=== PATIENT | female | born 1945 | race Caucasian/White ===

== ENCOUNTER 2018-04-18 11:17 | Inpatient (IN) | payer MEDICARE, OTHER ==
[~2018-04-18] VITALS: Ht 165.1 cm; Wt 67.4 kg
--- NOTE | 2018-04-18 12:01 | NUR ---
BIB [facility] FOR BILATERAL LOWER EXTREMITY EDEMA AND REDNESS. NAD WILL CONT TO MONITOR.PT REFUSED TO LAY IN THE BED.
[2018-04-18 12:20] LABS: BASOPHILS % (AUTO) 0.4 % (0.0-2.0); EOSINOPHILS % (AUTO) 7.8 % (0.0-6.0); HEMATOCRIT 35 % (33-45); HEMOGLOBIN 11.5 g/dL (11.5-14.8); LYMPHOCYTES # (AUTO) 1.1 /CMM (0.8-4.8); LYMPHOCYTES % (AUTO) 14.7 % (20.0-44.0); MEAN CORPUSCULAR HGB CONC 33 g/dl (31.0-36.0); MEAN CORPUSCULAR VOLUME 83 fL (82-100); MONOCYTES # (AUTO) 0.5 /CMM (0.1-1.30); MONOCYTES % (AUTO) 7.4 % (2.0-12.0); NEUTROPHILS # (AUTO) 5.1 /CMM (1.8-8.9); NEUTROPHILS % (AUTO) 69.7 % (43.0-81.0); RDW COEFFICIENT OF VARIATION 17.2 (11.5-15.0); RED BLOOD CELL COUNT(AUTO) 4.15 MIL/uL (4.0-5.2); WHITE BLOOD COUNT (AUTO) 7.3 K/uL (4.3-11.0)
[2018-04-18 12:22] LABS: PLATELET COUNT (AUTO) 258 /CMM (150-450)
--- NOTE | 2018-04-18 12:26 | NUR ---
US AT BS.
[2018-04-18 12:28] LABS: CALCIUM, SERUM 8.7 mg/dL (8.5-10.1); CARBON DIOXIDE 25 mmol/L (21-32); CHLORIDE 104 mmol/L (98-107); CREATININE 0.6 mg/dL (0.6-1.3); GLUCOSE 105 mg/dL (74-106); POTASSIUM 4.1 mmol/L (3.5-5.1); SODIUM SERUM 136 mmol/L (136-145); UREA NITROGEN, BLOOD 26 mg/dL (7-18)
[2018-04-18 12:41] LABS: B-TYPE NATRIURETIC PEPTIDE 47 PG/ML (0-125)
[2018-04-18] MEDS ORDERED: CEFTRIAXONE 1 G in IV D5W 50 ML IV ONE (13:30)
[2018-04-18] MEDS ORDERED: LORA-259 PO (13:40)
[2018-04-18] MEDS ORDERED: ZOLP5TAB2 PO (13:40)
[2018-04-18] MEDS ORDERED: LEVA1.257 IH (13:40)
[2018-04-18] MEDS ORDERED: LEVO100T9 PO (13:40)
[2018-04-18] MEDS ORDERED: HYDR-552 PO (13:40)
[2018-04-18] MEDS ORDERED: LISI10TA5 PO (13:40)
[2018-04-18] MEDS ORDERED: ASCO500T9 PO (13:40)
[2018-04-18] MEDS ORDERED: GABA-536 PO (13:40)
[2018-04-18] MEDS ORDERED: IPRA0.2S49 IH (13:40)
[2018-04-18] MEDS ORDERED: D AM PO (13:40)
[2018-04-18] MEDS ORDERED: LOPE2CAP PO (13:40)
[2018-04-18] MEDS ORDERED: DOCU250C14 PO (13:40)
[2018-04-18] MEDS ORDERED: ACET-868 PO (13:40)
[2018-04-18] MEDS ORDERED: HYDR-548 PO (13:40)
[2018-04-18] MEDS ORDERED: CHOL200026 PO (13:40)
[2018-04-18] MEDS ORDERED: TOPI100T38 PO (13:40)
[2018-04-18] MEDS ORDERED: RISP2TAB5 PO (13:40)
[2018-04-18] MEDS ORDERED: SERT50TA PO (13:40)
[2018-04-18] MEDS ORDERED: MULT-213 PO (13:40)
[2018-04-18] MEDS ORDERED: LEVOFLOXACIN 500 MG /D5W 100ML 500 MG/100 ML PIGGYBACK IV ONE (14:00)
[2018-04-18] MEDS ORDERED: ONDANSETRON HCL/PF 4 MG/2 ML VIAL IVP PRN (14:30)
[2018-04-18] MEDS ORDERED: IPRATROPIUM NEB FS 0.5 MG/2.5 ML AMPUL.NEB IH PRN (14:30)
[2018-04-18] MEDS ORDERED: MAG HYDROX/AL HYDROX/SIMETH 30 ML UDC PO PRN (14:30)
[2018-04-18] MEDS ORDERED: HYDROCODONE/APAP 5/325MG 1 EACH TABLET PO PRN (14:30)
[2018-04-18] MEDS ORDERED: LEVALBUTEROL HCL NEB 1.25 MG/0.5 ML VIAL.NEB IH PRN (14:30)
[2018-04-18] MEDS ORDERED: ACETAMINOPHEN 325 MG TABLET PO PRN (14:30)
[2018-04-18] MEDS ORDERED: Z GUARD REMEDY 2 OZ OINT TP PRN (14:30)
[2018-04-18] MEDS ORDERED: MAGNESIUM HYDROXIDE 30 ML UDC PO PRN (14:30)
[2018-04-18] MEDS ORDERED: LEVOFLOXACIN 500 MG /D5W 100ML 100 ML IV ONE (14:39)
--- NOTE | 2018-04-18 14:50 | NUR ---
REPORT GIVEN TO BARBARA BARRAZA
--- NOTE | 2018-04-18 14:59 | NUR ---
PT TRANSFERRED TO THE FLOOR
[2018-04-18 15:10] VITALS: BP 108/60
--- NOTE | 2018-04-18 15:10 | NUR ---
RN NOTES PATIENT KEPT ASKING FOR A SMOKE. PER PATIENT, KATARZYNA BERGER NP SAID SHE CAN SMOKE. CONSENT FOR SMOKE POLICY SIGNED. WENT DOWN FOR A SMOKE WITH SONY PEREZ.
--- NOTE | 2018-04-18 15:10 | NUR ---
RN INITIAL NOTES RECEIVED PATIENT FROM ER VIA PATIENT'S WHEELCHAIR. PATIENT IS A/OX3, ABLE TO MAKE NEEDS KNOWN. DIAGNOSIS OF BLE CELLULITIS. NO ACUTE DISTRESS, NO SOB NOTED. ON ROOM AIR, TOLERATED WELL. IV SITE INTACT AND PATENT. REFUSED TO DO SKIN ASSESSMENT AT THE MOMENT, SHE SAID "LATER". PATIENT REFUSED TO LAY ON THE BED, PER PATIENT SHE'S ON THE WHEELCHAIR MOST OF THE DAY AND ONLY TRANSFER TO BED DURING AT NIGHT. WILL NOTIFY KATARZYNA BERGER NP FOR ADMITTING ORDERS. WILL CONTINUE TO MONITOR ACCORDINGLY.
[2018-04-18] MEDS ORDERED: FEE PK DOSING 1 MIN EA MC ONE (15:15)
[2018-04-18] MEDS ORDERED: ALBUTEROL FS 2.5 MG/0.5 ML VIAL.NEB NEB PRN (15:30)
[2018-04-18 16:00] VITALS: BP 104/65
[2018-04-18] MEDS: GABAPENTIN 400 MG CAPSULE PO SCH ×2 (16:14→20:25)
[2018-04-18] MEDS: TOPIRAMATE 100 MG TABLET PO SCH (16:14)
[2018-04-18] MEDS: HYDROCODONE/APAP 10/325MG 1 EA TABLET PO PRN ×2 (16:15→20:25)
[2018-04-18] MEDS: ENOXAPARIN SODIUM 40 MG/0.4 ML DISP.SYRIN SQ SCH (16:46)
[2018-04-18] MEDS ORDERED: FUROSEMIDE 40 MG/4 ML VIAL IV ONE (17:00)
[2018-04-18] MEDS: VANCOMYCIN 0.75 GM in IV D5W 250 ML IV SCH (17:03)
--- NOTE | 2018-04-18 19:30 | NUR ---
RN CLOSING NOTES PATIENT IN STABLE CONDITION. ALL NEEDS ATTENDED AND PROVIDED. KEPT PATIENT SAFE. PATIENT REFUSED TO LAY ON BED. PATIENT NOTED SITTING ON WHEELCHAIR UPON CHANGE OF SHIFT. ENDORSED TO NIGHT RN FOR SHANIKA.
--- NOTE | 2018-04-18 19:30 | NUR ---
RN NOTES RECEIVED PATIENT UP IN WHEELCHAIR. AO X 3, ABLE TO MAKE NEEDS KNOWN. NO ACUTE DISTRESS NOTED. MONITORED FOR PAIN. IV SITE PATENT, INTACT; FLUSHED. SAFETY REMINDERS GIVEN. CALL SOSA WITHIN EASY REACH. WILL CONTINUE TO MONITOR.
[2018-04-18 20:00] VITALS: BP 108/54
[2018-04-18] MEDS: risperiDONE 1 MG TABLET PO SCH (20:24)
[2018-04-18] MEDS: ZOLPIDEM TARTRATE 5 MG TABLET PO PRN (22:11)
[2018-04-19] MEDS: HYDROCODONE/APAP 10/325MG 1 EA TABLET PO PRN ×5 (01:00→23:49)
[2018-04-19] MEDS: LORAZEPAM 1 MG TABLET PO PRN ×3 (01:00→18:54)
[2018-04-19] MEDS: VANCOMYCIN 0.75 GM in IV D5W 250 ML IV SCH ×2 (04:42→17:03)
[2018-04-19 06:37] LABS: BASOPHILS % (AUTO) 0.6 % (0.0-2.0); EOSINOPHILS % (AUTO) 9.4 % (0.0-6.0); HEMATOCRIT 36 % (33-45); LYMPHOCYTES # (AUTO) 1.7 /CMM (0.8-4.8); LYMPHOCYTES % (AUTO) 22.1 % (20.0-44.0); MEAN CORPUSCULAR HGB CONC 33 g/dl (31.0-36.0); MEAN CORPUSCULAR VOLUME 83 fL (82-100); MONOCYTES # (AUTO) 0.7 /CMM (0.1-1.30); MONOCYTES % (AUTO) 8.6 % (2.0-12.0); NEUTROPHILS # (AUTO) 4.6 /CMM (1.8-8.9); NEUTROPHILS % (AUTO) 59.3 % (43.0-81.0); PLATELET COUNT (AUTO) 258 /CMM (150-450); RDW COEFFICIENT OF VARIATION 17.2 (11.5-15.0); RED BLOOD CELL COUNT(AUTO) 4.35 MIL/uL (4.0-5.2); WHITE BLOOD COUNT (AUTO) 7.7 K/uL (4.3-11.0)
--- NOTE | 2018-04-19 06:49 | NUR ---
RN NOTES PATIENT ASLEEP, EASILY AROUSABLE. RESPIRATIONS EVEN. NO SIGNS OF PAIN NOTED. DUE MEDS GIVEN WITH NO ASE NOTED. NEEDS ATTENDED. KEPT CLEAN, DRY, AND COMFORTABLE. SAFETY PRECAUTIONS AND COMFORT MEASURES IN PLACE. WILL GIVE REPORT TO DAY SHIFT FOR CONTINUITY OF CARE.
[2018-04-19 06:59] LABS: ALANINE AMINOTRANSFERASE 27 U/L (12-78); ALBUMIN 3.3 g/dL (3.4-5.0); ALKALINE PHOSPHATASE 90 U/L (46-116); ASPARTATE AMINOTRANSFERASE 14 U/L (15-37); BILIRUBIN,TOTAL 0.3 mg/dL (0.2-1.0); CALCIUM, SERUM 9.1 mg/dL (8.5-10.1); CARBON DIOXIDE 27 mmol/L (21-32); CHLORIDE 104 mmol/L (98-107); CREATININE 0.7 mg/dL (0.6-1.3); GLUCOSE 92 mg/dL (74-106); MAGNESIUM 2.2 mg/dL (1.8-2.4); PHOSPHORUS 4.1 mg/dL (2.5-4.9); POTASSIUM 3.7 mmol/L (3.5-5.1); SODIUM SERUM 140 mmol/L (136-145); TOTAL PROTEIN, SERUM 7.9 g/dL (6.4-8.2); UREA NITROGEN, BLOOD 25 mg/dL (7-18)
[2018-04-19 07:13] LABS: CHOLESTEROL 150 mg/dL (<200); HDL CHOLESTEROL 32 mg/dL (40-60); LDL 100 mg/dL (0-99); THYROID STIMULATING HORMONE 42.867 uIU/mL (0.358-3.74); TRIGLYCERIDES 160 mg/dL (30-150)
--- NOTE | 2018-04-19 07:40 | NUR ---
RN OPENING NOTES RECEIVED PT. PT IS STABLE AND RESTING BEDSIDE IN WHEELCHAIR. A/OX3. NO S/S OF RESP DISTRESS OR SOB. PT C/O PAIN 04/30 ORIGINATING FROM LUE. WILL ADDRESS PHARMACOLOGICALLY. IV ACCESS LOCATED ON RAC 22G, CURRENTLY SL. SAFETY MEASURES IN PLACE, CALL LIGHT WITHIN REACH. WILL CONTINUE TO MONITOR.
[2018-04-19 08:00] VITALS: BP 110/49
[2018-04-19] MEDS: LEVOTHYROXINE SODIUM 100 MCG TABLET PO SCH (08:47)
[2018-04-19] MEDS: GABAPENTIN 400 MG CAPSULE PO SCH ×4 (08:47→21:14)
[2018-04-19] MEDS: DOCUSATE SODIUM 250 MG CAPSULE PO SCH (08:49)
[2018-04-19] MEDS: CHOLECALCIFEROL 1,000 UNIT TABLET (VIT D3) PO SCH (08:49)
[2018-04-19] MEDS: MULTIVIT, IRON, MIN NO. 8, FA 1 TAB PO SCH (08:49)
[2018-04-19] MEDS: SERTRALINE HCL 50 MG TABLET PO SCH (08:49)
[2018-04-19] MEDS: TOPIRAMATE 100 MG TABLET PO SCH ×2 (08:49→17:02)
[2018-04-19] MEDS: risperiDONE 1 MG TABLET PO SCH ×2 (08:50→21:15)
[2018-04-19] MEDS: ASCORBIC ACID 500 MG TABLET PO SCH (08:50)
[2018-04-19] MEDS: FUROSEMIDE 40 MG/4 ML VIAL IV SCH ×2 (08:50→17:03)
[2018-04-19] MEDS: LISINOPRIL (10MG) 10 MG TABLET PO SCH (08:50)
--- NOTE | 2018-04-19 09:36 | NUR ---
WOUND CARE CONSULT: PT OFF UNIT AT THIS TIME.
[2018-04-19 10:00] VITALS: BP 110/49
--- NOTE | 2018-04-19 10:57 | NUR ---
WOUND CARE: 2ND ATTEMPT TO SEE PT BUT PT HAVING PROCEDURE AT THIS TIME.
--- NOTE | 2018-04-19 12:10 | NUR ---
WOUND CARE CONSULT: PT PRESENTS WITH RASH TO PERINEUM AND LOWER BUTTOCKS, WELL REDNESS WITH WEEPING EDEMA TO LOWER LEGS WITH REDNESS, PRESENT ON ADMISSION. ALL SKIN PROTECTION RECOMMENDATIONS DISCUSSED WITH NURSING STAFF. WILL SEE PRN. BEAVERS IN AGREEMENT WITH PLAN OF CARE. Addendum: 04/19/18 at 1211 by NAPOLEON BEAN WNDNU Amended: Links added.
[2018-04-19] MEDS: CLOTRIMAZOLE/BETAMETASONE DIPROPIONATE 15 GM TUBE TP SCH ×2 (12:30→17:02)
[2018-04-19 16:00] VITALS: BP 101/60
--- NOTE | 2018-04-19 18:52 | NUR ---
RN CLOSING NOTES PT IS STABLE AND RESTING AT BEDSIDE IN WHEELCHAIR. A/OX3. NO S/S OF RESP DISTRESS OR SOB. PT WITH CONTINUED PAIN MANAGEMENT. IV ACCESS PATENT AND INTACT NO REDNESS OR INFILTRATION NOTED, CURRENTLY SL. SAFETY MEASURES IN PLACE, CALL LIGHT WITHIN REACH. WILL CONTINUE TO MONITOR AND ENDORSE TO NEXT SHIFT FOR CONTINUITY OF CARE
[2018-04-19 20:00] VITALS: BP 119/67
[2018-04-19] MEDS: ENOXAPARIN SODIUM 40 MG/0.4 ML DISP.SYRIN SQ SCH (21:16)
--- NOTE | 2018-04-19 22:52 | NUR ---
PATIENT REFUSED TO GO TO BED. PER PATIENT, SHE IS MORE COMFORTABLE IN WHEELCHAIR; SHE USUALLY RESTS IN WHEELCHAIR WHEN IN SNF. WILL CONTINUE TO MONITOR.
[2018-04-20] MEDS: ZOLPIDEM TARTRATE 5 MG TABLET PO PRN (01:58)
[2018-04-20 04:33] LABS: CALCIUM, SERUM 8.9 mg/dL (8.5-10.1); CARBON DIOXIDE 28 mmol/L (21-32); CHLORIDE 105 mmol/L (98-107); CREATININE 0.7 mg/dL (0.6-1.3); GLUCOSE 95 mg/dL (74-106); POTASSIUM 3.5 mmol/L (3.5-5.1); SODIUM SERUM 139 mmol/L (136-145); UREA NITROGEN, BLOOD 26 mg/dL (7-18)
--- NOTE | 2018-04-20 05:24 | NUR ---
HALLWAY TO PATIENT'S ROOM IS BEING WAXED; EVS INSTRUCTED STAFF TO KEEP AWAY FROM AREA.
[2018-04-20] MEDS: LORAZEPAM 1 MG TABLET PO PRN ×3 (05:55→23:13)
[2018-04-20] MEDS: VANCOMYCIN 0.75 GM in IV D5W 250 ML IV SCH ×2 (05:55→16:18)
[2018-04-20] MEDS: HYDROCODONE/APAP 10/325MG 1 EA TABLET PO PRN ×3 (05:56→20:52)
--- NOTE | 2018-04-20 06:13 | NUR ---
PATIENT AWAKE; TRANSFERRED TO WHEELCHAIR REQUESTED BY PATIENT. RESPIRATIONS EVEN. NO SIGNS OF PAIN NOTED. DUE MEDS GIVEN WITH NO ASE NOTED. NEEDS ATTENDED. KEPT CLEAN, DRY, AND COMFORTABLE. SAFETY PRECAUTIONS AND COMFORT MEASURES IN PLACE. WILL GIVE REPORT TO DAY SHIFT FOR CONTINUITY OF CARE.
--- NOTE | 2018-04-20 07:36 | NUR ---
MS RN OPENING NOTE PATIENT IS RESTING COMFORTABLY IN WHEELCHAIR REQUESTED. ALERT AND ORIENTED X4. NO FACIAL GRIMACING NOTED FOR PAIN. NO SOB OR DISTRESS NOTED. CALL LIGHT WITHIN REACH. SAFETY MEASURES IMPLEMENTED. ABLE TO COMMUNICATE NEEDS. IV INTACT AND PATENT NO REDNESS OR SWELLING NOTED, NO FLUIDS AT THIS TIME. WILL CONTINUE TO MONITOR THROUGHOUT SHIFT.
[2018-04-20 08:00] VITALS: BP 102/65
[2018-04-20] MEDS: LEVOTHYROXINE SODIUM 100 MCG TABLET PO SCH (08:21)
[2018-04-20] MEDS: MULTIVIT, IRON, MIN NO. 8, FA 1 TAB PO SCH (08:21)
[2018-04-20] MEDS: DOCUSATE SODIUM 250 MG CAPSULE PO SCH (08:21)
[2018-04-20] MEDS: SERTRALINE HCL 50 MG TABLET PO SCH (08:21)
[2018-04-20] MEDS: GABAPENTIN 400 MG CAPSULE PO SCH ×4 (08:21→20:45)
[2018-04-20] MEDS: TOPIRAMATE 100 MG TABLET PO SCH ×2 (08:22→16:17)
[2018-04-20] MEDS: risperiDONE 1 MG TABLET PO SCH ×2 (08:22→20:45)
[2018-04-20] MEDS: LISINOPRIL (10MG) 10 MG TABLET PO SCH (08:22)
[2018-04-20] MEDS: ASCORBIC ACID 500 MG TABLET PO SCH (08:22)
[2018-04-20] MEDS: FUROSEMIDE 40 MG/4 ML VIAL IV SCH ×2 (08:22→16:13)
[2018-04-20] MEDS: CHOLECALCIFEROL 1,000 UNIT TABLET (VIT D3) PO SCH (08:22)
[2018-04-20] MEDS: CLOTRIMAZOLE/BETAMETASONE DIPROPIONATE 15 GM TUBE TP SCH ×2 (08:23→16:18)
[2018-04-20] MEDS ORDERED: VITAMINS A AND D 56.7 GM TUBE TP PRN (09:00)
--- NOTE | 2018-04-20 11:46 | NUR ---
MS RN NOTE PATIENT REQUESTED PAIN MEDICATION FOR PAIN 10/10 ON BILATERAL LOWER EXTREMITIES. NORCO 10/325 PO GIVEN. WILL REASSESS PAIN
--- NOTE | 2018-04-20 14:00 | NUR ---
MS RN NOTE PATIENT STATED SHE IS VERY ANXIOUS ABOUT NOT SMOKING, SHE SAID " THIS ISN'T FAIR, I JUST WANT TO SMOKE". PATIENT SEEN CRYING AND MOANING. ATIVAN 1MG PO GIVEN. WILL CONTINUE TO MONITOR PATIENT
--- NOTE | 2018-04-20 15:00 | NUR ---
MS RN NOTE ATIVAN 1 MG EFFECTIVE. PATIENT RESTING AT THIS TIME. NO ANXIOUSNESS NOTED, WILL CONTINUE TO MONITOR THROUGHOUT SHIFT
[2018-04-20 16:00] VITALS: BP 109/69
--- NOTE | 2018-04-20 16:36 | NUR ---
MS RN NOTE LASIX HELD DUE TO LOW BP TAKEN MULTIPLE TIMES. ALL TIMES SBP BELOW <110
--- NOTE | 2018-04-20 18:36 | NUR ---
MS RN CLOSING NOTE PATIENT IS RESTING IN WHEELCHAIR AT THIS TIME WITH BRAKES ON. NO PAIN AT THIS TIME. NO SOB OR DISTRESS NOTED. CALL LIGHT WITHIN REACH AT ALL TIMES. SAFETY MEASURES IMPLEMENTED. ABLE TO COMMUNICATE NEEDS. IV INTACT AND PATENT NO REDNESS OR SWELLING NOTED. ALL DUE MEDICATIONS GIVEN ORDERED. ALL NURSING CARE NEEDS ATTENDED TO. WOUND TREATMENT DONE THROUGHOUT SHIFT. WILL ENDORSE TO PARAFFIN MACHINE OPERATOR FOR SHANIKA
--- NOTE | 2018-04-20 20:17 | NUR ---
MS RN INITIAL NOTE PT IS RESTING COMFORTABLY IN THE WHEELCHAIR, PT DOES NOT TO WANT TO BE IN THE BED. A/O X4 ABLE TO MAKE NEEDS KNOW, PT IS REQUESTING A SMOKE BREAK. REMINDED PT THAT SHE'S ALLOWED ONE SMOKE BREAK PER SHIFT. NO SIGNS OF SOB OR DISTRESS, BREATHING EVENLY AND UNLABORED ON RA. IV ACCESS IS INTACT AND PATENT. WHEELCHAIR IS IN LOCKED POSITION. WILL CONTINUE TO MONITOR PT
[2018-04-20] MEDS: ENOXAPARIN SODIUM 40 MG/0.4 ML DISP.SYRIN SQ SCH (20:51)
[2018-04-20 21:45] VITALS: BP 115/68
[2018-04-21] MEDS: HYDROCODONE/APAP 10/325MG 1 EA TABLET PO PRN ×3 (02:23→13:44)
[2018-04-21] MEDS: VANCOMYCIN 0.75 GM in IV D5W 250 ML IV SCH ×2 (04:21→16:20)
--- NOTE | 2018-04-21 06:21 | NUR ---
MS RN CLOSING NOTE PT IS RESTING IN WHEELCHAIR IN LOCKED POSITION AT BEDSIDE. NO SIGNS OF SOB OR DISTRESS, BREATHING EVENLY AND UNLABORED ON RA. IV ACCESS IS INTACT AND PATENT. WOUND CARE RENDERED. NO ACUTE CHANGES THROUGHOUT THE SHIFT. ALL NEEDS WERE ANTICIPATED AND MET. BED IS IN LOW AND LOCKED POSITION, CALL LIGHT WITHIN REACH. WILL ENDORSE TO DAYSHIFT
[2018-04-21 07:14] LABS: CALCIUM, SERUM 9.1 mg/dL (8.5-10.1); CARBON DIOXIDE 26 mmol/L (21-32); CHLORIDE 105 mmol/L (98-107); CREATININE 0.7 mg/dL (0.6-1.3); GLUCOSE 98 mg/dL (74-106); POTASSIUM 4.1 mmol/L (3.5-5.1); SODIUM SERUM 140 mmol/L (136-145); UREA NITROGEN, BLOOD 24 mg/dL (7-18)
[2018-04-21 08:00] VITALS: BP 116/66
[2018-04-21] MEDS: MULTIVIT, IRON, MIN NO. 8, FA 1 TAB PO SCH (08:55)
[2018-04-21] MEDS: FUROSEMIDE 40 MG/4 ML VIAL IV SCH ×2 (08:55→16:19)
[2018-04-21] MEDS: GABAPENTIN 400 MG CAPSULE PO SCH ×3 (08:55→16:19)
[2018-04-21] MEDS: risperiDONE 1 MG TABLET PO SCH (08:55)
[2018-04-21] MEDS: ASCORBIC ACID 500 MG TABLET PO SCH (08:55)
[2018-04-21] MEDS: SERTRALINE HCL 50 MG TABLET PO SCH (08:55)
[2018-04-21] MEDS: TOPIRAMATE 100 MG TABLET PO SCH ×2 (08:55→16:19)
[2018-04-21] MEDS: DOCUSATE SODIUM 250 MG CAPSULE PO SCH (08:55)
[2018-04-21] MEDS: CHOLECALCIFEROL 1,000 UNIT TABLET (VIT D3) PO SCH (08:55)
[2018-04-21] MEDS: LEVOTHYROXINE SODIUM 100 MCG TABLET PO SCH (08:56)
[2018-04-21] MEDS: LISINOPRIL (10MG) 10 MG TABLET PO SCH (08:59)
[2018-04-21] MEDS: CLOTRIMAZOLE/BETAMETASONE DIPROPIONATE 15 GM TUBE TP SCH ×2 (08:59→16:20)
[2018-04-21] MEDS ORDERED: VANC1PLA10 IV (10:20)
[2018-04-21] MEDS ORDERED: FURO-145 PO (10:20)
[2018-04-21] MEDS ORDERED: RXVAN XX (10:20)
[2018-04-21] MEDS ORDERED: VITA56.7 TP (10:25)
[2018-04-21] MEDS ORDERED: CLOT15CR5 TP (10:25)
[2018-04-21] MEDS ORDERED: NICOTINE PATCH (21MG) 21 MG PATCH.TD24 TD SCH (10:30)
--- NOTE | 2018-04-21 11:15 | NUR ---
RN NOTES PATIENTS SKIN ASSESSMENT DONE, PHOTOS TAKEN AND PLACED IN CHART, EXCEPT FOR LULU-AREA PHOTO, PATIENT IS REFUSING TO GO BACK TO BED AND TO HAVE PHOTO TAKEN OF HER LULU-AREA WHERE REDNESS ARE MORE VISIBLE. ONLY PART OF SACRAL WERE TAKEN. EXPLAINED RISKS AND BENEFITS, STILL REFUSED. PER PATIENT, "I CANNOT GO TO BED"
--- NOTE | 2018-04-21 13:00 | NUR ---
RN NOTES CALLED [facility] TWICE, WAS PLACED ON HOLD TWICE FOR 30 MINUTES EACH TIME. AND ANOTHER ATTEMPT TWICE, WITH NO ANSWER AT ALL, JUST AN AUTOMATED VOICE. CALVIN CAREER AND GUIDANCE COUNSELOR MADE AWARE.
[2018-04-21 16:00] VITALS: BP 93/56
[2018-04-21] MEDS: LORAZEPAM 1 MG TABLET PO PRN (16:21)
--- NOTE | 2018-04-21 16:52 | NUR ---
RN NOTES PATIENT REFUSED TO GO BACK TO BED THROUGHOUT THE SHIFT, PREFERS TO STAY IN THE WHEELCHAIR. PATIENT A/OX3, NONCOMPLIANT. RECEIVED DISCHARGE INSTRUCTIONS AND VERBALIZED UNDERSTANDING, PATIENT SIGNED DISCHARGE PAPERWORKS. PATIENT ASSISTED WITH ADLS, SKIN CARE RENDERED. PATIENT STILL REFUSING TO HAVE PHOTOS OF LULU-AREA. PATIENT IS IN NO DISTRESS, ALL DUE MEDICATIONS GIVEN. WAITING FOR TRANSPORTATION AT THIS TIME.
--- NOTE | 2018-04-21 18:43 | NUR ---
HEBREW CANTOR PATIENT'S SKIN CARE RENDERED, PATIENT FINALLY ALLOWED TO HAVE PHOTOS TAKEN ON HER LULU-AREA, STILL NOTED WITH REDNESS AND RASHES. PATIENT RECEIVED DISCHARGE INSTRUCTIONS AND VERBALIZED UNDERSTANDING, SIGNED DISCHARGED PAPERWORKS. BELONGINGS RECONCILED. PIV LEFT IN PLACED D/T PATIENT CONTINUING THE ANTIBIOTICS AT SNF. PATIENT'S NEEDS ATTENDED, WOUND TREATMENT RENDERED, PATIENT LEFT VIA GURNEY IN NO DISTRESS. ATTEMPTED TO GIVE REPORT TO [facility] BUT NO ANSWER AT THIS TIME.
== END 2018-04-21 18:43 | DRG 603 ==
LOC: ER 11:20 → MEDSG2 14:35
PROVIDERS: ADMIT Nurse Practitioner Acute Care; ATTEND Nurse Practitioner Acute Care
DX: L03.116 Cellulitis of left lower limb (principal); G62.9 Polyneuropathy, unspecified; E44.1 Mild protein-calorie malnutrition; E88.09 Other disorders of plasma-protein metabolism, not elsewhere classified; J44.9 Chronic obstructive pulmonary disease, unspecified; L03.115 Cellulitis of right lower limb; E03.9 Hypothyroidism, unspecified; G47.00 Insomnia, unspecified; E66.9 Obesity, unspecified; F17.210 Nicotine dependence, cigarettes, uncomplicated; F90.9 Attention-deficit hyperactivity disorder, unspecified type; G40.909 Epilepsy, unspecified, not intractable, without status epilepticus; I87.2 Venous insufficiency (chronic) (peripheral); L85.3 Xerosis cutis; F32.9 Major depressive disorder, single episode, unspecified; F41.9 Anxiety disorder, unspecified; Z88.0 Allergy status to penicillin; R79.89 Other specified abnormal findings of blood chemistry; Z68.24 Body mass index [BMI] 24.0-24.9, adult; L98.8 Other specified disorders of the skin and subcutaneous tissue
CPT/HCPCS: 36415; 80048-TC; 80053-TC; 80061-TC; 80202-TC; 83605-TC; 83735-TC; 83880; 84100-TC; 84443-TC; 85025-TC; 87040-TC; 87081-TC; 93307-TC; 93970-TC; 97110-TC; 97112-TC; A4606; J0696; J1650; J1940; J1956; J3370; J7060; Z7610

== ENCOUNTER 2019-03-09 20:56 | Inpatient (IN) | payer MEDICARE, OTHER ==
[~2019-03-09] VITALS: Ht 170.2 cm; Wt 84.4 kg
[~2019-03-09 20:56] MED LIST: ACET-868 PO; ASCO500T9 PO; CHOL200026 PO; CLOT15CR5 TP; D AM PO; DOCU250C14 PO; FURO-145 PO; GABA-536 PO; HYDR-4354 PO; HYDR-4384 PO; IPRA0.2S49 IH; LEVA1.257 IH; LEVO100T9 PO; LISI10TA5 PO; LOPE2CAP PO; LORA-259 PO; MULT-213 PO; RISP2TAB5 PO; RXVAN XX; SERT50TA PO; TOPI100T38 PO; VANC1PLA10 IV; VITA56.7 TP; ZOLP5TAB2 PO
--- NOTE | 2019-03-09 21:14 | NUR ---
PT PHYLLIS LEARY FROM [facility] FOR "AMS X 2 DAYS" PT AO TO NAME PERIODS OF CONFUSION, PER PA PT HAS RECENT HX OF UTI AND NOT COMPLIANT WITH MEDICATION. RR EVEN AND UNLABORED. NO NVD AT THIS TIME. PT NOTED WITH LOWER LEG REDNESS. DR. MCKEE AT BEDSIDE FOR EVAL
[2019-03-09] MEDS ORDERED: OLANZAPINE 10 MG VIAL IM ONE ×2 (21:18→21:30)
[2019-03-09] MEDS ORDERED: VANCOMYCIN 1 GM in IV D5W 250 ML IV ONE (21:30)
[2019-03-09] MEDS ORDERED: RISP1TAB7 PO (21:47)
[2019-03-09] MEDS ORDERED: TEMA15CA PO (21:47)
[2019-03-09] MEDS ORDERED: GABA-532 PO (21:47)
[2019-03-09] MEDS ORDERED: MULT-659 PO (21:47)
[2019-03-09] MEDS ORDERED: DIPH25TA25 PO (21:47)
[2019-03-09] MEDS ORDERED: DOCU100C36 PO (21:47)
[2019-03-09] MEDS ORDERED: LORAZEPAM INJ 2 MG/ML VIAL ONE (21:52)
[2019-03-09] MEDS ORDERED: LORAZEPAM INJ 2 MG/ML VIAL IV ONE (22:00)
[2019-03-09 22:07] LABS: BASOPHILS # (AUTO) 0.1 /CMM (0.0-0.2); EOSINOPHILS % (AUTO) 2.2 % (0.0-6.0); HEMATOCRIT 34 % (33-45); LYMPHOCYTES # (AUTO) 1.4 /CMM (0.8-4.8); LYMPHOCYTES % (AUTO) 16.8 % (20.0-44.0); MEAN CORPUSCULAR HGB CONC 32 g/dl (31.0-36.0); MEAN CORPUSCULAR VOLUME 82 fL (82-100); MONOCYTES # (AUTO) 0.6 /CMM (0.1-1.30); MONOCYTES % (AUTO) 7.8 % (2.0-12.0); NEUTROPHILS % (AUTO) 72.2 % (43.0-81.0); PLATELET COUNT (AUTO) 310 /CMM (150-450); RED BLOOD CELL COUNT(AUTO) 4.19 MIL/uL (4.0-5.2); WHITE BLOOD COUNT (AUTO) 8.3 K/uL (4.3-11.0)
--- NOTE | 2019-03-09 22:11 | NUR ---
URINE COLLECTED VIA STRAIGHT CATH PER DR. MCKEE UA SENT TO LAB
[2019-03-09] MEDS ORDERED: VANCOMYCIN 1 GM VIAL ONE (22:15)
[2019-03-09 22:21] LABS: CALCIUM, SERUM 8.2 mg/dL (8.5-10.1); CARBON DIOXIDE 23 mmol/L (21-32); CHLORIDE 104 mmol/L (98-107); CREATININE 0.9 mg/dL (0.6-1.3); GLUCOSE 93 mg/dL (74-106); POTASSIUM 3.6 mmol/L (3.5-5.1); SODIUM SERUM 136 mmol/L (136-145); UREA NITROGEN, BLOOD 18 mg/dL (7-18)
[2019-03-09 22:26] LABS: APPEARANCE,URINE Clear (CLEAR); BILIRUBIN,URINE SMALL (NEGATIVE); BLOOD, URINE Large Ery/uL (NEGATIVE); COLOR,URINE Yellow (YELLOW); KETONES,URINE Trace (NEGATIVE); LEUKOCYTE ESTERASE ,URINE Trace (NEGATIVE); NITRITE, URINE Negative (NEGATIVE); PROTEIN,URINE Negative (NEGATIVE); UGLUCOSE Negative (NEGATIVE); UROBILINOGEN,URINE 0.2 EU/dL (0.2)
[2019-03-09 22:44] LABS: ALANINE AMINOTRANSFERASE 19 U/L (12-78); ALBUMIN 3.1 g/dL (3.4-5.0); ALKALINE PHOSPHATASE 90 U/L (46-116); ASPARTATE AMINOTRANSFERASE 14 U/L (15-37); BILIRUBIN,DIRECT 0.1 mg/dL (0.0-0.2); SALICYLATE 4.4 mg/dL (2.8-20.0); TOTAL PROTEIN, SERUM 7.6 g/dL (6.4-8.2)
[2019-03-09 22:47] LABS: ACETAMINOPHEN < 2 ug/ml (10-30); ALCOHOL, BLOOD < 3 mg/dL (0-0)
--- NOTE | 2019-03-09 23:00 | NUR ---
OFFERED PT NC, PT STRONGLY REFUSED. RISK AND BENEFITS EXPLAINED X3.
[2019-03-09 23:02] LABS: BACTERIA,URINE Few /HPF (None Seen); RBC,URINE 21-50 /HPF (0-2); SQUAMOUS EPITHELIAL CELL,UR Few /HPF (None Seen)
[2019-03-09 23:06] LABS: BILIRUBIN,TOTAL 0.2 mg/dL (0.2-1.0)
--- NOTE | 2019-03-10 00:46 | NUR ---
PT ASSIGNED TO MS 323
--- NOTE | 2019-03-10 00:54 | NUR ---
REPORT GIVEN TO CHRISTI IZQUIERDO FOR CONTINUITY OF CARE.
[2019-03-10] MEDS ORDERED: Z GUARD REMEDY 2 OZ OINT TP PRN (01:00)
[2019-03-10] MEDS ORDERED: LORAZEPAM 1 MG TABLET PO PRN (01:00)
[2019-03-10] MEDS ORDERED: MAGNESIUM HYDROXIDE 30 ML UDC PO PRN (01:00)
[2019-03-10] MEDS: LEVOFLOXACIN 750 MG /D5W 150ML 750 MG in PREMIX 1 EA IV SCH (01:00)
[2019-03-10] MEDS ORDERED: MAG HYDROX/AL HYDROX/SIMETH 30 ML UDC PO PRN (01:00)
[2019-03-10] MEDS ORDERED: ONDANSETRON HCL/PF 4 MG/2 ML VIAL IVP PRN (01:00)
--- NOTE | 2019-03-10 01:23 | NUR ---
PT TRANSFERRED TO TELE 323 VIA GURNEY VIA ACLS PROTOCOL.
--- NOTE | 2019-03-10 01:35 | NUR ---
PAPER INSPECTORDATAWAREHOUSE DEVELOPER NOTES Received patient from ER via [facility] assisted by 2 ER staff. Admitted to Tele 323-1 due to AMS. Transferred patient to bed comfortably. Admission routine done. Initial skin assessment done, photos taken and documented. Kept patient clean, dry and comfortably. With patent peripheral IV line RFA G#20, SL. On RA, no SOB/respiratory distress noted. On tele monitor with SR noted. Patient denies chest pain, with complaint of pain on L hip and BLE. With cellulitis BLE, wound care done accordingly. Administered pain meds as ordered. Patient's current LOC is responsive, alert with episodes of forgetfulness and confusions. Mildly anxious. All nursing needs attend. Kept on NPO, expect meds as ordered. Assisted patient to her preferred comfortable position. Call light within easy reach. Will continue to monitor accordingly.
[2019-03-10] MEDS ORDERED: LEVOFLOXACIN 750 MG /D5W 150ML 150 ML IV ONE (02:20)
[2019-03-10] MEDS: HYDROCODONE/APAP 5/325MG 1 EACH TABLET PO PRN ×4 (02:47→22:36)
[2019-03-10] MEDS: TEMAZEPAM 15 MG CAPSULE PO PRN ×2 (02:48→22:36)
[2019-03-10 02:54] VITALS: BP 128/100
--- NOTE | 2019-03-10 06:46 | NUR ---
OFFICE CLINICIAN CLOSING NOTES Patient asleep at this time, on RA, no SOB/respiratory distress noted. Medicated for pain on L hip and BLE, noted effective. Patient was noted with good sleep throughout the shift. Remained on NPO except meds. Patient remained agitated and screaming when repositioned. With patent peripheral IV line RFA #20, SL. All nursing needs attended. Kept clean, dry and comfortable. Call light within easy reach. Afebrile the whole shift. Endorsed to the next shift. Addendum: 03/10/19 at 0655 by FELECIA WEBER RN ON TELE WITH SR NOTED.
--- NOTE | 2019-03-10 07:35 | NUR ---
INTERNATIONAL TRADE MANAGER OPENING NOTES RECEIVED PT IN BED, AWAKE, INTERMITTENTLY CRYING. A/O X1. TOLERATING RA, WITH NO ACUTE RESPIRATORY DISTRESS NOTED. PT DENIES ANY PAIN. CONCERN WHEN CAN SHE TAKE FOOD/BREAKFAST; AWAITING FOR HOSPITALIST ROUNDS TO F/U DIET AND PLAN, PT MADE AWARE. PT ON TELEMONITORING NSR, HR 79. RFA G20 SL, FLUSHED WITH NS, INTACT AND OPERATIONAL. PT KEPT COMFORTABLE. PT'S BED IN LOWEST, LOCKED POSITION WITH SR X2. CALL LIGHT KEPT WITHIN REACH. WILL CONTINUE PLAN OF CARE.
[2019-03-10 08:00] VITALS: BP 133/63
[2019-03-10] MEDS ORDERED: FEE PK DOSING 1 MIN EA MC ONE (08:04)
[2019-03-10 08:16] LABS: CARBON DIOXIDE 23 mmol/L (21-32); CHLORIDE 108 mmol/L (98-107); CREATININE 0.6 mg/dL (0.6-1.3); GLUCOSE 83 mg/dL (74-106); POTASSIUM 3.4 mmol/L (3.5-5.1); SODIUM SERUM 142 mmol/L (136-145); UREA NITROGEN, BLOOD 14 mg/dL (7-18)
[2019-03-10 08:19] LABS: BASOPHILS % (AUTO) 0.7 % (0.0-2.0); EOSINOPHILS % (AUTO) 2.3 % (0.0-6.0); HEMATOCRIT 33 % (33-45); HEMOGLOBIN 10.6 g/dL (11.5-14.8); LYMPHOCYTES # (AUTO) 0.7 /CMM (0.8-4.8); LYMPHOCYTES % (AUTO) 9.3 % (20.0-44.0); MEAN CORPUSCULAR HGB CONC 32 g/dl (31.0-36.0); MEAN CORPUSCULAR VOLUME 82 fL (82-100); MONOCYTES # (AUTO) 0.6 /CMM (0.1-1.30); MONOCYTES % (AUTO) 8.2 % (2.0-12.0); NEUTROPHILS # (AUTO) 5.9 /CMM (1.8-8.9); NEUTROPHILS % (AUTO) 79.5 % (43.0-81.0); PLATELET COUNT (AUTO) 274 /CMM (150-450); WHITE BLOOD COUNT (AUTO) 7.4 K/uL (4.3-11.0)
[2019-03-10] MEDS: DOCUSATE SODIUM 100 MG CAPSULE PO SCH ×2 (09:00→16:23)
--- NOTE | 2019-03-10 09:26 | NUR ---
RN NOTES SPOKE TO DR MARTI PRESENT ON THE UNIT. INFORMED PT CAME LAST NIGHT ON TELE AND RN RECEIVED PT ON NPO THEN EARLIER AROUNG 0845, PT D/C TELE TO MS. RN VERIFIED PT'S DIET WITH . MD WILL SEE PT FIRST AND WILL PUT IN ORDERS. PER SK
[2019-03-10] MEDS: CHOLECALCIFEROL 1,000 UNIT TABLET (VIT D3) PO SCH (09:47)
[2019-03-10] MEDS: GABAPENTIN 100 MG CAPSULE PO SCH ×3 (09:48→16:20)
[2019-03-10] MEDS: TOPIRAMATE 100 MG TABLET PO SCH ×2 (09:48→16:20)
[2019-03-10] MEDS: ASCORBIC ACID 500 MG TABLET PO SCH (09:48)
[2019-03-10] MEDS: LEVOTHYROXINE SODIUM 100 MCG TABLET PO SCH (09:48)
[2019-03-10] MEDS: risperiDONE 1 MG TABLET PO SCH ×2 (09:48→16:20)
[2019-03-10] MEDS: MULTIVIT W/MINERALS 1 TAB TABLET PO SCH (09:48)
[2019-03-10] MEDS: SERTRALINE HCL 50 MG TABLET PO SCH (09:48)
[2019-03-10] MEDS: ACETAMINOPHEN 325 MG TABLET PO PRN (09:57)
[2019-03-10] MEDS: VANCOMYCIN 0.75 GM in IV D5W 250 ML IV SCH ×2 (10:04→21:22)
[2019-03-10] MEDS: NICOTINE PATCH (21MG) 21 MG PATCH.TD24 TD SCH (11:22)
[2019-03-10] MEDS: POTASSIUM CL. PREMIX PERIPHER. 50 ML IV SCH ×2 (11:23→12:29)
--- NOTE | 2019-03-10 11:30 | NUR ---
MS RN NOTES JEWEL BEARING POLISHER CAME, PT REFUSED PROCEDURE.
--- NOTE | 2019-03-10 11:30 | NUR ---
MS RN NOTES SEEN BY DR. MARTI. PT AWARE OF SKIN ISSUES/BLE CELLULITIS. TO ORDER PODIATRY CONSULT WITH DR. CHAVEZ. MD SOLIZ TEXTED DR. CHAVEZ AND NOTIFIED.
[2019-03-10] MEDS: LORAZEPAM INJ 2 MG/ML VIAL IV PRN ×3 (11:37→23:54)
--- NOTE | 2019-03-10 11:50 | NUR ---
MS RN NOTES TOLL RELIEF OPERATOR CAME, PT REFUSED FOR FOOT XRAYS.
[2019-03-10 16:00] VITALS: BP 126/64
[2019-03-10] MEDS ORDERED: DEXTROAMPHETAMINE SULFATE 10 MG PO SCH (17:00)
--- NOTE | 2019-03-10 18:36 | NUR ---
MS RN CLOSING NOTES PT REMAINS IN BED, AWAKE, INTERMITTENTLY CRYING. A/O X1. TOLERATING RA, WITH NO ACUTE RESPIRATORY DISTRESS NOTED. PT DENIES ANY PAIN. SEEN BY SK THIS MORNING WITH ORDERS BUT PT REFUSED ECHOCARDIOGRAM AND COUPLE XRAYS, MADE AWARE. ALL NEEDS AND CARE PROVIDED. REPOSITIONING Q2 HOURS MADE. RFA G20 SL, FLUSHED WITH NS, INTACT AND OPERATIONAL. PT KEPT COMFORTABLE. PT'S BED IN LOWEST, LOCKED POSITION WITH SR X2. CALL LIGHT KEPT WITHIN REACH. WILL ENDORSE TO NIGHT NURSE FOR SHANIKA.
--- NOTE | 2019-03-10 19:25 | NUR ---
MS RN OPENING NOTES Patient asleep with HOB elevated. On RA, no SOB/respiratory distress noted. With patent peripheral IV line RFA G# 20 SL. Patient noted A/O x 1-2 with confusion and forgetfulness noted. Patient easily agitated and screaming. Patient preferred to be in R lateral position, with complaint of L hip pain aggravated by movement. With BLE cellulitis, swelling decreased compared to admission. On IV ATB as ordered. Medicated for pain as ordered. Kept bed low and locked, siderails x2 up, call light within easy reach. Will continue to monitor accordingly.
[2019-03-10 20:00] VITALS: BP 126/65
[2019-03-11] MEDS: LEVOFLOXACIN 750 MG /D5W 150ML 750 MG in PREMIX 1 EA IV SCH (00:08)
[2019-03-11] MEDS: HYDROCODONE/APAP 5/325MG 1 EACH TABLET PO PRN ×2 (03:15→18:20)
--- NOTE | 2019-03-11 06:13 | NUR ---
Per RN May, pt. refused x-rays.
--- NOTE | 2019-03-11 06:27 | NUR ---
MS RN CLOSING NOTES Patient noted asleep on bed at this time, BLE elevated to comfortable position. On RA, no SOB/respiratory distress noted. Afebrile the whole shift. Medicated for pain as ordered, noted effective. All due meds given as ordered, no ASE noted. All nursing needs attended. Kept patient clean, dry and comfortable at all times, snacks provided as requested. Kept bed low and locked, siderails x2 up, call light within easy reach. Endorsed to the next shift.
[2019-03-11 07:18] LABS: BASOPHILS % (AUTO) 0.5 % (0.0-2.0); EOSINOPHILS % (AUTO) 2.1 % (0.0-6.0); HEMATOCRIT 34 % (33-45); HEMOGLOBIN 10.7 g/dL (11.5-14.8); LYMPHOCYTES % (AUTO) 14.2 % (20.0-44.0); MEAN CORPUSCULAR HGB CONC 32 g/dl (31.0-36.0); MEAN CORPUSCULAR VOLUME 82 fL (82-100); MONOCYTES # (AUTO) 0.5 /CMM (0.1-1.30); MONOCYTES % (AUTO) 7.6 % (2.0-12.0); NEUTROPHILS # (AUTO) 5.3 /CMM (1.8-8.9); NEUTROPHILS % (AUTO) 75.6 % (43.0-81.0); PLATELET COUNT (AUTO) 278 /CMM (150-450); RED BLOOD CELL COUNT(AUTO) 4.13 MIL/uL (4.0-5.2)
[2019-03-11 07:40] LABS: CHOLESTEROL 129 mg/dL (<200); HDL CHOLESTEROL 27 mg/dL (40-60); LDL 84 mg/dL (0-99); THYROID STIMULATING HORMONE 70.511 uIU/mL (0.358-3.74); TRIGLYCERIDES 151 mg/dL (30-150)
--- NOTE | 2019-03-11 07:44 | NUR ---
MS RN OPENING NOTES RECEIVED PT IN BED, INTERMITTENTLY DOZING OFF. A/O X1. TOLERATING RA, WITH NO ACUTE RESPIRATORY DISTRESS NOTED. PT DENIES ANY PAIN AT THIS MOMENT. NIGHT NURSE ENDORSED PT DIDN'T HAD ENOUGHT SLEEP LAST NIGHT AND MOSTLY AWAKE IN HIS SHIFT, PT JUST FELL ASLEEP FEW HOURS AGO. PIV TO RFA G20 SL, FLUSHED WITH NS, INTACT AND OPERATIONAL. PT KEPT COMFORTABLE. PT'S BED IN LOWEST, LOCKED POSITION WITH SR X2. CALL LIGHT KEPT WITHIN REACH. WILL CONTINUE PLAN OF CARE.
[2019-03-11 07:50] LABS: CALCIUM, SERUM 8.1 mg/dL (8.5-10.1); CARBON DIOXIDE 20 mmol/L (21-32); CHLORIDE 107 mmol/L (98-107); CREATININE 0.7 mg/dL (0.6-1.3); GLUCOSE 88 mg/dL (74-106); MAGNESIUM 2.1 mg/dL (1.8-2.4); POTASSIUM 3.6 mmol/L (3.5-5.1); SODIUM SERUM 141 mmol/L (136-145); UREA NITROGEN, BLOOD 11 mg/dL (7-18)
[2019-03-11 08:00] VITALS: BP 123/70
[2019-03-11] MEDS: CHOLECALCIFEROL 1,000 UNIT TABLET (VIT D3) PO SCH (09:03)
[2019-03-11] MEDS: risperiDONE 1 MG TABLET PO SCH ×2 (09:03→16:22)
[2019-03-11] MEDS: MULTIVIT W/MINERALS 1 TAB TABLET PO SCH (09:04)
[2019-03-11] MEDS: TOPIRAMATE 100 MG TABLET PO SCH ×2 (09:04→16:22)
[2019-03-11] MEDS: ASCORBIC ACID 500 MG TABLET PO SCH (09:04)
[2019-03-11] MEDS: DOCUSATE SODIUM 100 MG CAPSULE PO SCH ×2 (09:04→16:27)
[2019-03-11] MEDS: GABAPENTIN 100 MG CAPSULE PO SCH ×3 (09:04→16:23)
[2019-03-11] MEDS: SERTRALINE HCL 50 MG TABLET PO SCH (09:04)
[2019-03-11] MEDS: NICOTINE PATCH (21MG) 21 MG PATCH.TD24 TD SCH (09:04)
[2019-03-11] MEDS: LEVOTHYROXINE SODIUM 100 MCG TABLET PO SCH (09:04)
[2019-03-11] MEDS: LORAZEPAM INJ 2 MG/ML VIAL IV PRN (09:06)
[2019-03-11] MEDS: VANCOMYCIN 0.75 GM in IV D5W 250 ML IV SCH ×2 (09:15→21:48)
[2019-03-11] MEDS ORDERED: LORAZEPAM INJ 2 MG/ML VIAL IV PRN (10:30)
--- NOTE | 2019-03-11 13:30 | NUR ---
RN NOTES PT SEEN AND EVALUATED BY DR. RYAN/ PSYCH CONSULT. MODIFIED RISPERDAL AND GABAPENTIN ORDERS. WILL CONTINUE TO MONITOR.
[2019-03-11 16:00] VITALS: BP 128/70
[2019-03-11] MEDS: LACTOBACILLUS RHAMNOSUS GG 1 EACH CAP.SPRINK PO SCH (16:24)
--- NOTE | 2019-03-11 18:28 | NUR ---
MS RN CLOSING NOTES PT REMAINS IN BED, INTERMITTENTLY DOZING OFF. A/O X1. TOLERATING RA, WITH NO ACUTE RESPIRATORY DISTRESS NOTED. PT HAD GENERALIZED PAIN AND JUST REQUESTED FOR NORCO, PRN GIVEN ORDERED. HOB KEPT ELEVATED. PIV TO RFA G20 SL, FLUSHED WITH NS, INTACT AND OPERATIONAL. ALL NEEDS AND CARE PROVIDED AND ATTENDED. PT REFUSED FOR WOUND DRESSINGS TO BE CHANGED THIS MORNING. MD SOLIZ AWARE AND PRESENT BEDSIDE WELL. PT KEPT COMFORTABLE. PT'S BED IN LOWEST, LOCKED POSITION WITH SR X2. CALL LIGHT KEPT WITHIN REACH. WILL ENDORSE TO GRAIN OPERATOR NURSE FOR SHANIKA.
--- NOTE | 2019-03-11 19:30 | NUR ---
RN MS OPENING NOTES RECEIVED PATIENT IN BED AWAKE, ALERT AND ORIENTED X1, CONFUSED. VERBALLY RESPONSIVE. GETS AGITATED QUICKLY WHEN ASKED QUESTIONS. NONAMBULATORY. BREATHING EVEN AND UNLABORED. NO SOB NOTED. TOLERATING ROOM AIR. NO COMPLAINTS OF PAIN OR DISCOMFORT. NO FACIAL GRIMACING. IV ON RIGHT FOREARM INTACT AND PATENT. SKIN DRY AND WARM TO TOUCH. NOTED WITH RIGHT HAND AND BLE EDEMA. AFEBRILE. ALL OTHER NEEDS MET. SAFETY MEASURES IN PLACE. CALL LIGHT WITHIN REACH. WILL CONTINUE TO MONITOR.
--- NOTE | 2019-03-11 19:45 | NUR ---
RN MS NOTES PATIENT REFUSED TO HAVE VITAL SIGNS TAKEN. RN AND QUALITY SYSTEMS TECHNICIAN IN ROOM AND ENCOURAGING PATIENT TO HAVE VITALS TAKEN FOR MONITORING. PATIENT KEPT YELLING, AND TELLING RN AND QUALITY SYSTEMS TECHNICIAN NOT TO TOUCH HER AND TO LEAVE THE ROOM. PATIENT ALSO KEEPS PRESSING CALL LIGHT AND SAYING "AMBULANCE." REORIENTED THE PATIENT MULTIPLE TIMES THAT SHE'S IN THE HOSPITAL BUT STILL DOESN'T STOP. RN AND QUALITY SYSTEMS TECHNICIAN LEFT THE ROOM. PATIENT STOPPED YELLING. WILL CONTINUE TO MONITOR CLOSELY.
--- NOTE | 2019-03-11 20:16 | NUR ---
RN MS NOTES PATIENT'S RIGHT HAND/ARM NOTED WITH NONPITTING EDEMA. WRAPPED IN MARIANELA BANDAGE. PATIENT ALSO HAS IV ON THE SAME LOCATION. IV SITE IS FLUSHING WELL BUT ATTEMPTED TO CHECK TO SEE IN THERE'S ANY INFILTRATION. PATIENT REFUSED TO BE TOUCHED. INFORMED PATIENT THAT I WOULD JUST LIKE TO MAKE SURE IT'S WORKING. PER PATIENT "IT WORKS. I DONT NEED IT CHECKED. GO AWAY". WILL CHECK AGAIN ANOTHER TIME. WILL CONTINUE TO MONITOR FOR NOW.
[2019-03-11 21:00] VITALS: BP 102/68
--- NOTE | 2019-03-11 21:03 | NUR ---
RN MS NOTES PATIENT FINALLY AGREED TO HAVE VITAL SIGNS TAKEN.
[2019-03-12] MEDS: LEVOFLOXACIN 750 MG /D5W 150ML 750 MG in PREMIX 1 EA IV SCH (00:57)
--- NOTE | 2019-03-12 03:20 | NUR ---
RN MS NOTES PATIENT REFUSED TO HAVE IV SITE CHECKED AGAIN. EXPLAINED RISKS AND BENEFITS BUT STILL REFUSED. PATIENT DOES NOT WANT ME TO REMOVE MARIANELA BANDAGE. WILL CONTINUE TO MONITOR.
[2019-03-12] MEDS: ACETAMINOPHEN 325 MG TABLET PO PRN ×2 (03:29→15:55)
--- NOTE | 2019-03-12 04:11 | NUR ---
RN MS NOTES PATIENT CONSISTENTLY PRESSES CALL [facility] AND ASKS FOR "PARAMEDICS." REORIENTED PATIENT MANY TIMES BUT DOES NOT WORK. PATIENT KEEPS STATING THAT SHES UNCOMFORTABLE BUT REFUSES TO BE TOUCHED AND REPOSITIONED. PATIENT REQUESTED FOR TYLENOL AND TYLENOL WAS GIVEN BUT FORGETS THAT SHE DRANK IT. WHENEVER RN GOES IN THE ROOM, PATIENT KEEPS SAYING TO "GET OUT" OR "I DONT LIKE YOU." TRIED TO HAVE A DIFFERENT RN BUT SAYS THE SAME THING. WILL CONTINUE TO REORIENT MUCH POSSIBLE.
--- NOTE | 2019-03-12 05:44 | NUR ---
RN MS NOTES PATIENT REFUSED TO HAVE BLOOD DRAWN DESPITE EXPLANATION OF RISKS AND BENEFITS. PATIENT IS CONFUSED AND KEEPS CALLING FOR "PARAMEDICS" TO PICK HER UP.
[2019-03-12] MEDS: HYDROCODONE/APAP 5/325MG 1 EACH TABLET PO PRN (05:59)
--- NOTE | 2019-03-12 06:47 | NUR ---
RN MS CLOSING NOTES PATIENT IN BED. STILL YELLING OUT FOR PARAMEDICS. REMAINS CONFUSED. REORIENTED MULTIPLE TIMES BUT DID NOT WORK . GETS AGITATED ASKED QUESTIONS. OTHERWISE NO ACUTE CHANGES THROUGHOUT SHIFT. BREATHING EVEN AND UNLABORED. NO SOB NOTED. TOLERATING ROOM AIR. NO COMPLAINTS OF PAIN OR DISCOMFORT. NO FACIAL GRIMACING. IV ON RIGHT FOREARM INTACT. SKIN DRY AND WARM TO TOUCH. AFEBRILE. ALL OTHER NEEDS MET. KEPT CLEAN AND DRY. MULTIPLE ATTEMPTS TO REPOSITION THROUGHOUT NIGHT BUT REFUSED EVERY TIME. SAFETY MEASURES IN PLACE. CALL LIGHT WITHIN REACH. WILL ENDORSE TO ONCOMING NURSE FOR SHANIKA.
--- NOTE | 2019-03-12 07:29 | NUR ---
MS RN OPENING NOTES RECEIVED PT AWAKE IN BED WATCHING TV. HOB ELEVATED. A/O X 2-3. ABLE TO VERBALIZE NEEDS, DENIES PAIN OR DISCOMFORTS AT THIS TIME. CONFUSED AND EASILY GETS AGITATED. REORIENTED. ON ROOM AIR, BREATHING EVEN AND UNLABORED, NO SOB NOTED. IV ACCESS ON RIGHT FA G#20 INTACT AND PATENT. SAFETY MEASURES IN PLACE. BED IN LOW LOCKED POSITION WITH SR UP X2. CALL LIGHT IN REACH. WILL CONTINUE TO MONITOR PT ACCORDINGLY.
[2019-03-12] MEDS: LEVOTHYROXINE SODIUM 125 MCG TABLET PO SCH (07:36)
[2019-03-12 08:10] VITALS: BP 110/56
[2019-03-12] MEDS: risperiDONE 1 MG TABLET PO SCH ×2 (08:20→16:37)
[2019-03-12] MEDS: TOPIRAMATE 100 MG TABLET PO SCH ×2 (08:20→16:37)
[2019-03-12] MEDS: LACTOBACILLUS RHAMNOSUS GG 1 EACH CAP.SPRINK PO SCH ×2 (08:20→16:37)
[2019-03-12] MEDS: MULTIVIT W/MINERALS 1 TAB TABLET PO SCH (08:20)
[2019-03-12] MEDS: CHOLECALCIFEROL 1,000 UNIT TABLET (VIT D3) PO SCH (08:21)
[2019-03-12] MEDS: GABAPENTIN 100 MG CAPSULE PO SCH ×3 (08:21→16:37)
[2019-03-12] MEDS: ASCORBIC ACID 500 MG TABLET PO SCH (08:22)
[2019-03-12] MEDS: SERTRALINE HCL 50 MG TABLET PO SCH (08:22)
[2019-03-12] MEDS: NICOTINE PATCH (21MG) 21 MG PATCH.TD24 TD SCH (08:22)
--- NOTE | 2019-03-12 08:34 | NUR ---
RN NOTES ASKED IF PATIENT WOULD LIKE TO HAVE HER BLOOD WORKS DONE AND SHE INSISTENTLY REFUSED.
--- NOTE | 2019-03-12 08:54 | NUR ---
ADDENDUM: DR MARTI ON UNIT AND MADE AWRE OF PT'S REFUSAL TO HAVE BLOOD WORKS DONE.
[2019-03-12] MEDS: DOCUSATE SODIUM 100 MG CAPSULE PO SCH ×2 (09:00→16:37)
[2019-03-12] MEDS: VANCOMYCIN 0.75 GM in IV D5W 250 ML IV SCH (10:21)
[2019-03-12] MEDS: NYSTATIN/TRIAMCIN CREAM 15 GM TUBE TP SCH ×2 (13:08→22:59)
[2019-03-12 15:55] LABS: BASOPHILS % (AUTO) 0.6 % (0.0-2.0); EOSINOPHILS % (AUTO) 1.9 % (0.0-6.0); HEMATOCRIT 37 % (33-45); HEMOGLOBIN 11.8 g/dL (11.5-14.8); LYMPHOCYTES # (AUTO) 1.1 /CMM (0.8-4.8); LYMPHOCYTES % (AUTO) 12.8 % (20.0-44.0); MEAN CORPUSCULAR HGB CONC 32 g/dl (31.0-36.0); MEAN CORPUSCULAR VOLUME 82 fL (82-100); MONOCYTES # (AUTO) 0.7 /CMM (0.1-1.30); MONOCYTES % (AUTO) 8.3 % (2.0-12.0); NEUTROPHILS # (AUTO) 6.6 /CMM (1.8-8.9); NEUTROPHILS % (AUTO) 76.4 % (43.0-81.0); PLATELET COUNT (AUTO) 302 /CMM (150-450); RED BLOOD CELL COUNT(AUTO) 4.47 MIL/uL (4.0-5.2); WHITE BLOOD COUNT (AUTO) 8.6 K/uL (4.3-11.0)
--- NOTE | 2019-03-12 15:58 | NUR ---
RN NOTES PATIENT COMPLAINED OF PAIN ON HER LEFT HIP AND REQUESTED FOR TYLENOL. PRN TYLENOL 650 MG PO ADMINISTERED AT 1555. WILL CONTINUE TO MONITOR PT.
[2019-03-12 16:03] VITALS: BP 105/60
[2019-03-12 16:04] LABS: CALCIUM, SERUM 8.3 mg/dL (8.5-10.1); CARBON DIOXIDE 22 mmol/L (21-32); CHLORIDE 107 mmol/L (98-107); CREATININE 0.6 mg/dL (0.6-1.3); GLUCOSE 105 mg/dL (74-106); MAGNESIUM 2.2 mg/dL (1.8-2.4); PHOSPHORUS 3.3 mg/dL (2.5-4.9); POTASSIUM 3.7 mmol/L (3.5-5.1); SODIUM SERUM 141 mmol/L (136-145); UREA NITROGEN, BLOOD 11 mg/dL (7-18)
--- NOTE | 2019-03-12 18:38 | NUR ---
MS RN CLOSING NOTES PATIENT IN BED AWAKE AND WATCHING TV AT THIS TIME. HOB ELEVATED. A/O X 2-3. ABLE TO VERBALIZE NEEDS. PT NOTED WITH PERIODS OF CONFUSION AND AGITATION DURING THE DAY. REORIENTED NEEDED AND NEEDS ATTENDED WELL. ON ROOM AIR, BREATHING EVEN WITH NO SOB NOTED. IV ACCESS ON RIGHT FA G#20 INTACT AND PATENT, EASILY FLUSHED WITH NS. PT TURNED AND REPOSITIONED Q 2HRS. KEPT CLEAN, DRY AND COMFORTABLE. ALL SAFETY MEASURES KEPT IN PLACE. BED IN LOW LOCKED POSITION WITH SR UP X2. CALL LIGHT IN REACH. WILL ENDORSE TO WINDOW INSTALLATION SUBCONTRACTOR NURSE FOR SHANIKA.
--- NOTE | 2019-03-12 19:30 | NUR ---
MSRN FULLY AWAKE, CONFUSED OF THIS TIME, COOPERATIVE, NO SOB. DENIES ANY DISCOMFORTS OF THIS TIME, REPOSITIONED BOTH LOWER EXTREMITIES PER PATIENTS' COMFORT. REALITY ORIENTAION, LISTENS ONLY FOR SHORT PERIOD OF TIME. NEEDS CLOSER OBSERVATION, FREQUENT CHECKS. NO OTHER NEEDS MADE, KEPT COMFORTABLE.
[2019-03-12 20:16] VITALS: BP 107/72
[2019-03-12 20:19] VITALS: BP 107/72
[2019-03-12] MEDS ORDERED: LEVOFLOXACIN (750 MG) 750 MG TABLET PO SCH (23:00)
[2019-03-13] MEDS: HYDROCODONE/APAP 5/325MG 1 EACH TABLET PO PRN (01:55)
--- NOTE | 2019-03-13 01:56 | NUR ---
MSRN EARLY AM CARE DONE. INCONTINENT, LARGE URINE OUTPUT. REDNESS MYCOLOG CREAM APPLIED TO AFFECTED AREAS. RESISTIVE TO CARE MOST OF THE TIME, REMAINS CONFUSED, ANSWERS QUESTION INAPPROPRIATELY. REPOSITIONED, KEPT CLEAN AND DRY.VERBALIZES SEVERE PAIN ON BOTH FEET, UNABLE TO SCALE,, FACIAL GRIMACES AND IRRITABILITY NOTE. NORCO 1 TAB PO ADMINISTERED. PATIENT COMPLIANT WITH PO MEDS.REFUSED DRESSING CHANGES ON BOTH FEET.
[2019-03-13] MEDS ORDERED: VANCOMYCIN 0.75 GM in IV D5W 250 ML IV SCH (04:00)
--- NOTE | 2019-03-13 06:55 | NUR ---
MSRN AGREED BLOOD DRAW TODAY. REMAINS CONFUSED.
[2019-03-13 06:59] LABS: BASOPHILS # (AUTO) 0.1 /CMM (0.0-0.2); BASOPHILS % (AUTO) 0.7 % (0.0-2.0); EOSINOPHILS % (AUTO) 2.3 % (0.0-6.0); HEMATOCRIT 37 % (33-45); HEMOGLOBIN 11.8 g/dL (11.5-14.8); LYMPHOCYTES % (AUTO) 13.6 % (20.0-44.0); MEAN CORPUSCULAR HGB CONC 32 g/dl (31.0-36.0); MEAN CORPUSCULAR VOLUME 81 fL (82-100); MONOCYTES # (AUTO) 0.6 /CMM (0.1-1.30); MONOCYTES % (AUTO) 8.3 % (2.0-12.0); NEUTROPHILS # (AUTO) 5.5 /CMM (1.8-8.9); NEUTROPHILS % (AUTO) 75.1 % (43.0-81.0); PLATELET COUNT (AUTO) 302 /CMM (150-450); RED BLOOD CELL COUNT(AUTO) 4.52 MIL/uL (4.0-5.2); WHITE BLOOD COUNT (AUTO) 7.3 K/uL (4.3-11.0)
[2019-03-13 07:31] LABS: CALCIUM, SERUM 8.6 mg/dL (8.5-10.1); CARBON DIOXIDE 22 mmol/L (21-32); CHLORIDE 108 mmol/L (98-107); CREATININE 0.7 mg/dL (0.6-1.3); GLUCOSE 128 mg/dL (74-106); MAGNESIUM 2.3 mg/dL (1.8-2.4); PHOSPHORUS 3.4 mg/dL (2.5-4.9); POTASSIUM 3.7 mmol/L (3.5-5.1); SODIUM SERUM 142 mmol/L (136-145); UREA NITROGEN, BLOOD 10 mg/dL (7-18)
--- NOTE | 2019-03-13 07:36 | NUR ---
WOUND CARE CONSULT WOUND CARE RECEIVED CONSULT FOR FOOT WOUNDS. WOUND CARE WILL DEFER CONSULT AND ALL TREATMENT PLANS TO PLASTIC SURGICAL TEAM INCLUDING DPM DR CHAVEZ WHO ARE ALL FOLLOWING THIS PATIENT. PATIENT WITH AZALEA AT 15, ALL PRESSURE ULCER PREVENTION MEASURES ARE NOTED TO BE IN PLACE. WILL SEE PRN.
--- NOTE | 2019-03-13 07:40 | NUR ---
RN NOTES PATIENT A/OX1-2, EASILY AGITATED, BREATHING EVEN AND UNLABORED, BLE COVERED WITH KERLIX, C/D/I. PATIENT REFUSED TO HAVE FEET TOUCHED AT THIS TIME, WILL OFFER TO CHANGE DRESSING AT A LATER TIME. NEEDS ATTENDED, CALL LIGHT WITHIN REACH, WILL CONTINUE TO MONITOR.
[2019-03-13] MEDS: risperiDONE 1 MG TABLET PO SCH (08:16)
[2019-03-13] MEDS: TOPIRAMATE 100 MG TABLET PO SCH (08:16)
[2019-03-13] MEDS: DOCUSATE SODIUM 100 MG CAPSULE PO SCH (08:16)
[2019-03-13] MEDS: NICOTINE PATCH (21MG) 21 MG PATCH.TD24 TD SCH (08:16)
[2019-03-13] MEDS: ASCORBIC ACID 500 MG TABLET PO SCH (08:16)
[2019-03-13] MEDS: GABAPENTIN 100 MG CAPSULE PO SCH ×2 (08:16→12:36)
[2019-03-13] MEDS: LACTOBACILLUS RHAMNOSUS GG 1 EACH CAP.SPRINK PO SCH (08:16)
[2019-03-13] MEDS: CHOLECALCIFEROL 1,000 UNIT TABLET (VIT D3) PO SCH (08:16)
[2019-03-13] MEDS: SERTRALINE HCL 50 MG TABLET PO SCH (08:16)
[2019-03-13] MEDS: MULTIVIT W/MINERALS 1 TAB TABLET PO SCH (08:16)
[2019-03-13] MEDS: LEVOTHYROXINE SODIUM 125 MCG TABLET PO SCH (08:16)
[2019-03-13 08:26] VITALS: BP 113/62
[2019-03-13] MEDS ORDERED: RISP1TAB7 PO (10:29)
[2019-03-13] MEDS ORDERED: CLIN300C11 PO (10:29)
[2019-03-13] MEDS: NYSTATIN/TRIAMCIN CREAM 15 GM TUBE TP SCH (12:03)
--- NOTE | 2019-03-13 12:33 | NUR ---
RN NOTES PATIENT REFUSED TO HAVE SKIN ASSESSMENT AND PHOTOS TO BE TAKEN, PATIENT STATED "NO, YOU MAY NOT." OFFERED WOUND TREATMENT ON BLE, PATIENT ALSO REFUSED, PATIENT STATED, "DO NOT TOUCH MY LEGS" EXPLAINED RISKS AND BENEFITS, STILL REFUSED, PATIENT IS EASILY AGITATED.
--- NOTE | 2019-03-13 12:37 | NUR ---
RN NOTES PATIENT REFUSING TO EAT AT THIS TIME AND TO TAKE HER MEDICATIONS. EXPLAINED RISKS AND BENEFITS, STILL REFUSED. VERBALIZED UNDERSTANDING.
--- NOTE | 2019-03-13 14:16 | NUR ---
RN NOTES REPORT GIVEN TO KENDY BARRAZA AT [facility], DISCHARGE INSTRUCTIONS PROVIDED AND VERBALIZED UNDERSTANDING. AMBULANCE PRESENT. WILL GIVE REPORT.
--- NOTE | 2019-03-13 14:40 | NUR ---
IN CLASSROOM TUTOR NOTE PATIENT A/OX1-2, BREATHING EVEN AND UNLABORED, NO SOB NOTED, PATIENT ALLOWED SKIN CARE, HOWEVER STILL REFUSING PHOTOS. BUTTOCKS STILL NOTED WITH REDNESS, WOUND TREATMENT RENDERED. AMBULANCE CAME AND REPORT GIVEN, VSS. PIV REMOVED AND APPLIED GAUZE AND TAPE. BELONGINGS RECONCILED AND COMPLETE. PATIENT LEFT IN STABLE CONDITION VIA AMBULANCE. Addendum: 03/13/19 at 1442 by YUE ROOT RN ADDENDUM: DISCHARGE INSTRUCTIONS PROVIDED, BUT PATIENT REFUSED TO SIGN, WITNESSED BY ANOTHER NURSE.
== END 2019-03-13 14:35 | DRG 602 ==
LOC: ER 20:58 → MED 03-10 01:04 → TELE 03-10 02:21 → MED 03-10 08:44
PROVIDERS: ADMIT Student in an Organized Health Care Education/Training Program; ATTEND Student in an Organized Health Care Education/Training Program
DX: L03.115 Cellulitis of right lower limb (principal); G93.41 Metabolic encephalopathy; E44.1 Mild protein-calorie malnutrition; L03.116 Cellulitis of left lower limb; E87.6 Hypokalemia; E03.9 Hypothyroidism, unspecified; E66.01 Morbid (severe) obesity due to excess calories; D64.9 Anemia, unspecified; F17.210 Nicotine dependence, cigarettes, uncomplicated; L85.3 Xerosis cutis; Z88.0 Allergy status to penicillin; J44.9 Chronic obstructive pulmonary disease, unspecified; E88.09 Other disorders of plasma-protein metabolism, not elsewhere classified; G47.00 Insomnia, unspecified; S91.302A Unspecified open wound, left foot, initial encounter; S91.301A Unspecified open wound, right foot, initial encounter; X58.XXXA Exposure to other specified factors, initial encounter; Y93.9 Activity, unspecified; Y92.129 Unspecified place in nursing home as the place of occurrence of the external cause; F39 Unspecified mood [affective] disorder; Z68.29 Body mass index [BMI] 29.0-29.9, adult; F32.9 Major depressive disorder, single episode, unspecified; F41.9 Anxiety disorder, unspecified; L98.8 Other specified disorders of the skin and subcutaneous tissue; S71.102A Unspecified open wound, left thigh, initial encounter; L30.4 Erythema intertrigo; I87.2 Venous insufficiency (chronic) (peripheral); Z87.440 Personal history of urinary (tract) infections; G62.9 Polyneuropathy, unspecified; G40.909 Epilepsy, unspecified, not intractable, without status epilepticus
CPT/HCPCS: 36415; 71045-TC; 80048-TC; 80061-TC; 80076-TC; 80202-TC; 80305; 81000-TC; 83605-TC; 83735-TC; 84100-TC; 84436-TC; 84443-TC; 84484-TC; 85025-TC; 85730-TC; 87040-TC; 87081-TC; 87086-TC; A4216; A6403; G0378; G0480; J1956; J2060; J3370; J3480; J3490; J7050; J7060

== ENCOUNTER 2019-12-05 16:47 | Inpatient (IN) | payer MEDICARE, MEDICAID ==
[~2019-12-05] VITALS: Ht 170.2 cm; Wt 93.9 kg
[~2019-12-05 16:47] MED LIST changes: +CLIN300C11 PO; +DIPH25TA25 PO; +DOCU100C36 PO; -DOCU250C14 PO; +GABA-532 PO; -GABA-536 PO; -HYDR-4384 PO; -IPRA0.2S49 IH; -LEVA1.257 IH; -LISI10TA5 PO; -LOPE2CAP PO; -MULT-213 PO; +MULT-659 PO; +RISP1TAB7 PO; -RISP2TAB5 PO; +TEMA15CA PO; -ZOLP5TAB2 PO
[2019-12-05 19:00] LABS: BASOPHILS # (AUTO) 0.1 /CMM (0.0-0.2); BASOPHILS % (AUTO) 0.8 % (0.0-2.0); EOSINOPHILS % (AUTO) 1.2 % (0.0-6.0); HEMATOCRIT 35 % (33-45); HEMOGLOBIN 11.1 g/dL (11.5-14.8); LYMPHOCYTES # (AUTO) 0.8 /CMM (0.8-4.8); LYMPHOCYTES % (AUTO) 6.9 % (20.0-44.0); MEAN CORPUSCULAR HGB CONC 32 g/dl (31.0-36.0); MEAN CORPUSCULAR VOLUME 82 fL (82-100); MONOCYTES # (AUTO) 0.8 /CMM (0.1-1.30); MONOCYTES % (AUTO) 6.9 % (2.0-12.0); NEUTROPHILS # (AUTO) 9.8 /CMM (1.8-8.9); NEUTROPHILS % (AUTO) 84.2 % (43.0-81.0); PLATELET COUNT (AUTO) 307 /CMM (150-450); RED BLOOD CELL COUNT(AUTO) 4.24 MIL/uL (4.0-5.2); WHITE BLOOD COUNT (AUTO) 11.6 K/uL (4.3-11.0)
[2019-12-05] MEDS ORDERED: IV NS 0.9% 1,000 ML BAG IV ONE (19:00)
[2019-12-05] MEDS ORDERED: HYDROMORPHONE INJ 0.5 MG/0.5 ML SYRINGE IV ONE (19:00)
[2019-12-05 19:11] LABS: CALCIUM, SERUM 8.9 mg/dL (8.5-10.1); CREATININE 0.8 mg/dL (0.6-1.3); POTASSIUM 3.6 mmol/L (3.5-5.1)
[2019-12-05] MEDS ORDERED: HYDROMORPHONE 1 MG/1 ML DISP.SYRIN ONE (19:11)
--- NOTE | 2019-12-05 19:35 | NUR ---
CALLED [facility], PAGED KATARZYNA BERGER
--- NOTE | 2019-12-05 19:38 | NUR ---
CALLED NURSING SUP FOR MEDSURG BED
--- NOTE | 2019-12-05 19:54 | NUR ---
XRAY AT BEDSIDE
--- NOTE | 2019-12-05 20:58 | NUR ---
REPORT CALLED TO M/S CHRISTI HAYES. WILL TRANSPORT PT TO ROOM 203
--- NOTE | 2019-12-05 21:29 | NUR ---
PT REFUSED CT SCAN.
--- NOTE | 2019-12-05 21:32 | NUR ---
MS RN NOTE PT ARRIVED TO FLOOR VIA GURWENDY ACCOMPANIED BY ER STAFF. PT A/O X4, NO SIGNS OF SOB OR DISTRESS, NO N/V. PT REFUSING BODY ASSESSMENT TO BE DONE, ALL BELONGINGS ACCOUNTED AND SIGNED FOR. NOTED WITH IV IN R HAND #20 S/L. ALL CURRENT NEEDS ATTENDED TO. BED LOW, LOCKED, UPPER RAILS UP, AND CALL LIGHT WITHIN REACH. WILL CONT. TO MONITOR. BERGER AWARE OF PT ARRIVAL TO FLOOR.
[2019-12-05 21:33] VITALS: BP 111/56
--- NOTE | 2019-12-05 21:33 | NUR ---
MS RN NOTE PT REFUSING ADMISSION VITALS TO BE TAKEN, AND BEDDING TO BE CHANGED.
[2019-12-05] MEDS ORDERED: MAG HYDROX/AL HYDROX/SIMETH 30 ML UDC PO PRN (22:00)
[2019-12-05] MEDS ORDERED: VITAMINS A AND D 56.7 GM TUBE TP PRN (22:00)
[2019-12-05] MEDS ORDERED: ONDANSETRON HCL/PF 4 MG/2 ML VIAL IVP PRN (22:00)
[2019-12-05] MEDS ORDERED: Z GUARD REMEDY 2 OZ OINT TP PRN (22:00)
[2019-12-05] MEDS ORDERED: MAGNESIUM HYDROXIDE 30 ML UDC PO PRN (22:00)
[2019-12-05] MEDS ORDERED: TEMAZEPAM 15 MG CAPSULE PO PRN (22:00)
--- NOTE | 2019-12-05 22:10 | NUR ---
MS RN NOTE PT REFUSED BLOOD CX TO BE DRAWN, RISKS AND BENEFITS MADE AWARE. WILL CONT. TO MONITOR.
--- NOTE | 2019-12-05 23:00 | NUR ---
MS RN NOTE CALLED PHARMACY TO VERIFY MEDICATIONS, PT STATING SHE IS IN PAIN
--- NOTE | 2019-12-05 23:15 | NUR ---
MS RN NOTE LAB HERE TO DRAW BLOOD CULTURE, WILL ADMIN ROCEPHIN AFTER VERIFIED BY PHARMBrian OSMAN CHARGE MADE AWARE OF NEED FROM PYXIS.
--- NOTE | 2019-12-05 23:30 | NUR ---
MS RN NOTE CALLED PHARMACY AGAIN TO VERIFY MEDICATIONS.
[2019-12-05] MEDS: HYDROMORPHONE INJ 2 MG/ML DISP.SYRIN IV PRN (23:59)
--- NOTE | 2019-12-06 00:09 | NUR ---
MS RN NOTE PT NOTED WITH LACTIC ACID OF 3.1, BERGER NOTIFIED WITH NEW ORDER FOR NS 500 ML BOLUS, AND REDRAW OR LACTIC AFTER BOLUS GIVEN. NEW ORDER CARRIED OUT.
[2019-12-06] MEDS ORDERED: IV NS 0.9% 500 ML IV ONE (00:30)
--- NOTE | 2019-12-06 00:45 | NUR ---
MS RN NOTE SPOKE WITH LISHA AT PHARMACY IN REGARDS TO ROCEPHIN ORDER NOT BEING VERIFIED, AWAITING VERIFICATION
--- NOTE | 2019-12-06 02:12 | NUR ---
MS RN NOTE NOTIFIED BERGER OF DECLINING REPEAT LACTIC. NO NEW ORDERS. WILL CONT. TO MONITOR
[2019-12-06] MEDS ORDERED: CEFTRIAXONE 1 G VIAL ONE (02:31)
[2019-12-06] MEDS: CEFTRIAXONE 1 G in IV D5W 50 ML IV SCH (03:00)
--- NOTE | 2019-12-06 03:00 | NUR ---
MS RN NOTE ROCEPHIN MANUALLY ADMINISTERED, WHEN SCANNED, STATES UNKNOWN NDC NUMBER.
[2019-12-06] MEDS: HYDROCODONE/APAP 5/325MG 1 EACH TABLET PO PRN ×3 (03:22→12:51)
[2019-12-06] MEDS ORDERED: VANCOMYCIN 1.5 GM in IV D5W 500ml IV ONE (03:30)
[2019-12-06] MEDS ORDERED: VANCOMYCIN 1 GM VIAL ONE (03:34)
[2019-12-06] MEDS ORDERED: VANCOMYCIN 500 MG VIAL ONE (03:35)
--- NOTE | 2019-12-06 03:46 | NUR ---
MS RN NOTE 0330 DOSE OF VANCOMYCIN 1.5 GM MANUALLY ADMINISTERED. PULLED FROM [facility] BY DAWSON CHARGE NURSE.
--- NOTE | 2019-12-06 05:27 | NUR ---
MS RN NOTE PT REFUSED AM LABS, RISKS AND BENEFITS MADE AWARE, WITH VERBALIZATION OF UNDERSTANDING.
[2019-12-06] MEDS: HYDROMORPHONE INJ 2 MG/ML DISP.SYRIN IV PRN (05:41)
--- NOTE | 2019-12-06 06:00 | NUR ---
MS RN NOTE PT REFUSED FOR PILLOWS TO BE TAKEN OFF OF LEGS. DAILY INACCURATE. WILL ENDORSE TO NEXT SHIFT FOR SHANIKA.
--- NOTE | 2019-12-06 06:40 | NUR ---
MS RN NOTE PT REMAINS IN STABLE CONDITION, A/O X4, NO SIGNS OF SOB OR DISTRESS, NO N/V. PT ALLOWED PARTIAL BODY ASSESSMENT TO BE DONE PHOTOS TAKEN PATIENT ALLOWED. NOTED WITH IV IN R HAND #20 S/L. ALL CURRENT NEEDS ATTENDED TO. BED LOW, LOCKED, UPPER RAILS UP, AND CALL LIGHT WITHIN REACH. WILL CONT. TO MONITOR AND ENDORSE TO NEXT SHIFT FOR SHANIKA.
[2019-12-06] MEDS ORDERED: FEE PK DOSING 1 MIN EA MC ONE (07:06)
--- NOTE | 2019-12-06 07:15 | NUR ---
MS RN OPENING NOTES RECEIVED PATIENT IN BED, ALERT AND AWAKE. NO S/S OF RESPIRATORY DISTRESS. DENIES ANY C/O PAIN NOR DISCOMFORT AT THIS TIME. HOB ELEVATED. ON O2 V/A NC MADDI WELL. RIGHT HAND #20 INTACT AND PATENT. BED IN LOWEST POSITION, LOCKED. BED ALARM ON. BED SIDERAILS UP X2. CALL LIGHT WITHIN REACH.
[2019-12-06] MEDS: LEVOTHYROXINE SODIUM 100 MCG TABLET PO SCH (08:31)
[2019-12-06] MEDS: SERTRALINE HCL 50 MG TABLET PO SCH (08:46)
[2019-12-06] MEDS: TOPIRAMATE 100 MG TABLET PO SCH ×2 (08:46→16:57)
[2019-12-06] MEDS: ASCORBIC ACID 500 MG TABLET PO SCH (08:47)
[2019-12-06] MEDS: DOCUSATE SODIUM 100 MG CAPSULE PO SCH ×2 (08:47→16:56)
[2019-12-06] MEDS: CHOLECALCIFEROL 1,000 UNIT TABLET (VIT D3) PO SCH (08:47)
[2019-12-06] MEDS: MULTIVIT W/MINERALS 1 TAB TABLET PO SCH (08:47)
[2019-12-06] MEDS: risperiDONE 1 MG TABLET PO SCH ×2 (08:47→16:56)
[2019-12-06] MEDS: CLOTRIMAZOLE/BETAMETASONE DIPROPIONATE 15 GM TUBE TP SCH ×2 (08:56→17:03)
[2019-12-06] MEDS ORDERED: DEXTROAMPHETAMINE SULFATE 10 MG PO SCH (09:00)
[2019-12-06] MEDS ORDERED: GABAPENTIN 100 MG CAPSULE PO SCH (09:00)
[2019-12-06 11:35] LABS: BASOPHILS % (AUTO) 0.3 % (0.0-2.0); EOSINOPHILS % (AUTO) 0.2 % (0.0-6.0); HEMATOCRIT 33 % (33-45); HEMOGLOBIN 10.6 g/dL (11.5-14.8); LYMPHOCYTES # (AUTO) 0.6 /CMM (0.8-4.8); LYMPHOCYTES % (AUTO) 4.3 % (20.0-44.0); MEAN CORPUSCULAR HGB CONC 32 g/dl (31.0-36.0); MEAN CORPUSCULAR VOLUME 82 fL (82-100); MONOCYTES # (AUTO) 0.7 /CMM (0.1-1.30); MONOCYTES % (AUTO) 5.3 % (2.0-12.0); NEUTROPHILS % (AUTO) 89.9 % (43.0-81.0); PLATELET COUNT (AUTO) 282 /CMM (150-450); RED BLOOD CELL COUNT(AUTO) 4.03 MIL/uL (4.0-5.2); WHITE BLOOD COUNT (AUTO) 13.4 K/uL (4.3-11.0)
[2019-12-06 11:45] LABS: CALCIUM, SERUM 8.6 mg/dL (8.5-10.1); CREATININE 0.7 mg/dL (0.6-1.3); MAGNESIUM 2.1 mg/dL (1.8-2.4); PHOSPHORUS 3.2 mg/dL (2.5-4.9); POTASSIUM 3.4 mmol/L (3.5-5.1)
[2019-12-06 11:47] LABS: BILIRUBIN,DIRECT 0.1 mg/dL (0.0-0.2); BILIRUBIN,TOTAL 0.3 mg/dL (0.2-1.0)
--- NOTE | 2019-12-06 11:51 | NUR ---
MS RN NOTES PATIENT SEEN BY OLIVIA FLOWERS, INFORMED OLIVIA THAT PATIENT HAS BEEN OFF OF DEXTROAMPHETAMINE SINCE Sep WITH ORDER FOR DC MED. CARRIED OUT.
--- NOTE | 2019-12-06 11:52 | NUR ---
MS RN NOTES RELAYED LACTIC ACID 2.0 LEVEL TO OLIVIA PURCHASER WITH NNO. LEVEL TRENDING DOWN.
[2019-12-06 11:56] LABS: THYROID STIMULATING HORMONE 1.885 uIU/mL (0.358-3.74)
--- NOTE | 2019-12-06 12:48 | NUR ---
MS RN NOTES PATIENT SEEN BY PODIATRY WOUND MD BUT PATIENT REFUSED FOR BANDAGE TO BE REMOVED.
[2019-12-06] MEDS: GABAPENTIN 400 MG CAPSULE PO SCH ×2 (12:50→16:56)
[2019-12-06] MEDS: VANCOMYCIN 0.75 GM in IV D5W 250 ML IV SCH (14:15)
--- NOTE | 2019-12-06 17:04 | NUR ---
MS RN NOTES PATIENT REFUSED CT
[2019-12-06] MEDS: LORAZEPAM 1 MG TABLET PO PRN (18:49)
--- NOTE | 2019-12-06 18:55 | NUR ---
MS RN CLOSING NOTES ALERT AND AWAKE ORIENTED X4. NO SOB. DENIES ANY C/O PAIN NOR DISCOMFORT AT THIS TIME. HOB ELEVATED. ON O2 VIA NC @ 2L/MIN MADDI WELL. RIGHT HAND #20 INTACT AND PATENT. PATIENT NON COMPLIANT WITH CARE DESPITE OF RISKS AND BENEFITS EXPLAINED. BED IN LOWEST POSITION, LOCKED. BED ALARM ON. BED SIDERAILS UP X2. CALL LIGHT WITHIN REACH. IN NO APPARENT DISTRESS.
--- NOTE | 2019-12-06 19:30 | NUR ---
MS RN OPENING NOTE RECEIVED PATIENT IN BED. A/O X4. ON OXYGEN 2L/MIN VIA NASAL CANNULA. RESPIRATIONS ARE EVEN AND UNLABORED. NO S/ SOB NOTED. DENIES PAIN AT THIS TIME. IN NO APPARENT DISTRESS. IV ACCESS RIGHT HAND #20 PATENT AND SALINE LOCKED. BED IS LOW AND LOCKED, HOB ELEVATED IN SEMI FOWLERS POSITION, SIDE RAILS UPX2, BED ALARM ON. CALL LIGHT WITHIN REACH. WILL CONTINUE TO MONITOR.
[2019-12-06 20:00] VITALS: BP 102/38
[2019-12-06 20:05] VITALS: BP 102/38
[2019-12-06 21:00] VITALS: BP 100/49
--- NOTE | 2019-12-06 22:55 | NUR ---
MS RN NOTE CALLED PROGRAM ENGINEER MD TO NOTIFY THAT THE PATIENT O2 SAT IS 87%- 88%. PATIENT IS CURRENTLY ON OXYGEN, VERY CONGESTED, SPUTUM IS CLEAR. HX OF COPD. MD TELEPHONE ORDERED STAT CXR AND STAT ABG. READ BACK, NOTED AND CARRIED OUT.
[2019-12-06 23:23] LABS: ABG BASE EXCESS 3.1 mmol/L; ABG OXYGEN SATURATION 88.5 % (92.0-98.5); ABG PCO2 42.8 mmHg (35.0-45.0); ABG PO2 55.5 mmHg (75.0-100.0); AaDO2 180.5 mmHg; COHb 1.2 % (0.5-1.5); O2Hb 87.4 % (94.0-97.0); SITE, ABG Right Brachial; VENT MODE, BG N/C 5LPM
--- NOTE | 2019-12-07 00:16 | NUR ---
MS RN NOTE CALLED GLASS NOVELTY MAKER MD TO NOTIFY THE ABG RESULTS AND THAT PATIENT REFUSED CXR. MD TELEPHONE ORDERED ALBUTEROL 2.5 PRNQ4 WHILE AWAKE AND ATROVENT 0.5MG PRNQ4 WHILE AWAKE, ABG FOR TOMORROW. ORDERS READ BACK NOTED AND CARRIED OUT.
[2019-12-07] MEDS: IPRATROPIUM NEB FS 0.5 MG/2.5 ML AMPUL.NEB NEB SCH ×5 (00:28→20:05)
[2019-12-07] MEDS: ALBUTEROL FS 2.5 MG/0.5 ML VIAL.NEB NEB SCH ×5 (00:28→20:05)
[2019-12-07] MEDS ORDERED: IPRATROPIUM NEB FS 0.5 MG/2.5 ML AMPUL.NEB NEB PRN (00:30)
[2019-12-07] MEDS ORDERED: ALBUTEROL FS 2.5 MG/0.5 ML VIAL.NEB NEB PRN (00:30)
[2019-12-07] MEDS: VANCOMYCIN 0.75 GM in IV D5W 250 ML IV SCH ×4 (02:00→14:00)
--- NOTE | 2019-12-07 02:51 | NUR ---
MS RN NOTE PATIENT REFUSED VANCO ANTIBIOTIC. EXPLAINED THE RISKS AND BENEFITS PATIENTS STILL REFUSED. WILL CONTINUE TO MONITOR.
[2019-12-07] MEDS ORDERED: CEFTRIAXONE 1 G in IV D5W 50 ML IV SCH (03:00)
--- NOTE | 2019-12-07 03:42 | NUR ---
MS RN NOTE PATIENT REFUSES TO BE REPOSITIONED OR TURNED.
--- NOTE | 2019-12-07 03:42 | NUR ---
MS RN NOTE VANCO IS NOW BEING ADMINISTERED. PATIENT CHANGED MIND.
[2019-12-07] MEDS: HYDROMORPHONE INJ 2 MG/ML DISP.SYRIN IV PRN (04:07)
[2019-12-07] MEDS: CEFTRIAXONE 1 G in IV D5W 50 ML IV SCH (04:58)
[2019-12-07] MEDS: HYDROCODONE/APAP 5/325MG 1 EACH TABLET PO PRN ×2 (06:29→13:58)
[2019-12-07 07:05] LABS: CALCIUM, SERUM 8.5 mg/dL (8.5-10.1); CREATININE 0.6 mg/dL (0.6-1.3); MAGNESIUM 2.2 mg/dL (1.8-2.4); PHOSPHORUS 3.2 mg/dL (2.5-4.9); POTASSIUM 3.6 mmol/L (3.5-5.1)
--- NOTE | 2019-12-07 07:11 | NUR ---
MS RN OPENING NOTES RECEIVED PATIENT ALERT AND AWAKE, ORIENTED X4. HOB ELEVATED. NO SOB. ON O2 @ 2L/MIN VIA NC MADDI WELL. RIGHT HAND SL #20 INTACT AND PATENT. DENIES ANY C/O PAIN NOR DISCOMFORT AT THIS TIME. BED SIDERAILS UP X2. BED ALARM ON. CALL LIGHT WITHIN REACH. ABLE TO VERBALIZE NEEDS.
--- NOTE | 2019-12-07 07:22 | NUR ---
MS RN CLOSING NOTE PATIENT IN BED. A/O X4. REMAINS ON OXYGEN 4L/MIN VIA NASAL CANNULA. RESPIRATIONS ARE EVEN AND UNLABORED. NO SOB NOTED. MANAGED PAIN WITH DILAUDID AND NORCO THROUGHOUT SHIFT. NO DISTRESS NOTED. IV ACCESS MAINTAINED IN RIGHT HAND #20 PATENT AND SALINE LOCKED. BED REMAINS LOW AND LOCKED, HOB ELEVATED IN SEMI FOWLERS POSITION, SIDE RAILS UPX2, BED ALARM ON. CALL LIGHT WITHIN REACH. WILL ENDORSE TO NEXT SHIFT
[2019-12-07 07:30] VITALS: BP 113/77
[2019-12-07] MEDS: LEVOTHYROXINE SODIUM 100 MCG TABLET PO SCH (07:44)
[2019-12-07 08:23] LABS: ABG BASE EXCESS 1.5 mmol/L; ABG PCO2 39.3 mmHg (35.0-45.0); ABG PH 7.435 (7.350-7.450); ABG PO2 60.3 mmHg (75.0-100.0); AaDO2 179.7 mmHg; COHb 1.1 % (0.5-1.5); MetHb 0.3 % (0.0-1.5); O2Hb 89.7 % (94.0-97.0); SITE, ABG Right Brachial; VENT MODE, BG 5 L/M NASAL CANNULA
[2019-12-07] MEDS: CHOLECALCIFEROL 1,000 UNIT TABLET (VIT D3) PO SCH (09:33)
[2019-12-07] MEDS: DOCUSATE SODIUM 100 MG CAPSULE PO SCH ×2 (09:34→16:58)
[2019-12-07] MEDS: risperiDONE 1 MG TABLET PO SCH ×2 (09:34→16:58)
[2019-12-07] MEDS: MULTIVIT W/MINERALS 1 TAB TABLET PO SCH (09:34)
[2019-12-07] MEDS: SERTRALINE HCL 50 MG TABLET PO SCH (09:34)
[2019-12-07] MEDS: GABAPENTIN 400 MG CAPSULE PO SCH ×3 (09:34→16:58)
[2019-12-07] MEDS: ASCORBIC ACID 500 MG TABLET PO SCH (09:34)
[2019-12-07] MEDS: TOPIRAMATE 100 MG TABLET PO SCH ×2 (09:34→16:58)
[2019-12-07] MEDS: CLOTRIMAZOLE/BETAMETASONE DIPROPIONATE 15 GM TUBE TP SCH ×2 (09:35→16:59)
--- NOTE | 2019-12-07 10:30 | NUR ---
WOUND CARE CONSULT WOUND CARE RECEIVED CONSULT FOR BLE WOUNDS. PATIENT CONTINUES TO REFUSE ANY SKIN ASSESSMENTS AT THIS TIME. PATIENT REFUSED FOR PODIATRY TEAM TO SEE OR EXAMINE HER WELL. PER NURSING STAFF, PATIENT IS ALSO REFUSING TO BE TURNED OR REPOSITIONED. PATIENT REFUSING TO HAVE LOWER EXTREMITY WRAPS REMOVED OR HER LEGS TO BE EXAMINED. WILL SEE PATIENT ONCE SHE AGREES TO BE ASSESSED.
[2019-12-07] MEDS ORDERED: ACET325T53 PO (12:33)
[2019-12-07] MEDS ORDERED: ONDA4VIA23 IVP (12:33)
[2019-12-07] MEDS ORDERED: MAGN400O6 PO (12:33)
[2019-12-07] MEDS ORDERED: HYDR-3972 PO (12:33)
[2019-12-07] MEDS ORDERED: HYDR2DIS IV (12:33)
[2019-12-07] MEDS ORDERED: CEFT1FRO2 IV (12:33)
[2019-12-07] MEDS ORDERED: IPRA0.2S9 NEB ×2 (12:33)
[2019-12-07] MEDS ORDERED: RXVAN XX (12:33)
[2019-12-07] MEDS ORDERED: MAG30ORA PO (12:33)
[2019-12-07] MEDS ORDERED: ALBU2.5V13 NEB ×2 (12:33)
[2019-12-07] MEDS ORDERED: ALLA266C2 TP (12:33)
[2019-12-07] MEDS ORDERED: GABA-536 PO (12:33)
[2019-12-07 13:09] LABS: BASOPHILS % (AUTO) 0.4 % (0.0-2.0); EOSINOPHILS % (AUTO) 0.1 % (0.0-6.0); HEMATOCRIT 33 % (33-45); HEMOGLOBIN 10.3 g/dL (11.5-14.8); LYMPHOCYTES # (AUTO) 0.7 /CMM (0.8-4.8); LYMPHOCYTES % (AUTO) 6.2 % (20.0-44.0); MEAN CORPUSCULAR HGB CONC 32 g/dl (31.0-36.0); MEAN CORPUSCULAR VOLUME 84 fL (82-100); MONOCYTES # (AUTO) 0.8 /CMM (0.1-1.30); MONOCYTES % (AUTO) 7.8 % (2.0-12.0); NEUTROPHILS # (AUTO) 9.2 /CMM (1.8-8.9); NEUTROPHILS % (AUTO) 85.5 % (43.0-81.0); PLATELET COUNT (AUTO) 285 /CMM (150-450); RED BLOOD CELL COUNT(AUTO) 3.89 MIL/uL (4.0-5.2); WHITE BLOOD COUNT (AUTO) 10.8 K/uL (4.3-11.0)
[2019-12-07] MEDS ORDERED: Z GUARD REMEDY 2 OZ OINT TP PRN (17:00)
--- NOTE | 2019-12-07 18:55 | NUR ---
MS RN CLOSING NOTES ALERT AND AWAKE, ORIENTED X4. HOB ELEVATED. NO S/S OF RESPIRATORY DISTRESS. DENIES ANY C/O PAIN NOR DISCOMFORT AT THIS TIME. ON O2 @ 2L/MIN VIA NC MADDI WELL. RIGHT HAND SL #20 INTACT AND PATENT. BLE ELEVATED ON PILLOWS. WOUND CARE DONE. BED SIDERAILS UP X2. BED ALARM ON. CALL LIGHT WITHIN REACH. IN NO APPARENT DISTRESS.
--- NOTE | 2019-12-07 19:57 | NUR ---
RN NOTES PM SHIFT PATIENT ALERT AND ORIENTED X4, ABLE TO VERBALIZE NEEDS, ON 5LPM VIA NC, SPO2 93%, NOT IN APPARENT DISTRESS, CALM AT THIS TIME, BLE OFFLOADED, DRESSING DRY, CLEAN AND INTACT, KEPT SAFE, WILL CONTINUE TO MONITOR.
[2019-12-07 20:06] LABS: BAND % (MANUAL) 4 % (0.0-5.0); LYMPHOCYTES % (MANUAL) 17 % (16-48); NEUTROPHILS % (MANUAL) 79 (42-76)
[2019-12-07 20:10] VITALS: BP 105/51
[2019-12-08] MEDS: VANCOMYCIN 0.75 GM in IV D5W 250 ML IV SCH ×2 (01:47→13:24)
[2019-12-08] MEDS: CEFTRIAXONE 1 G in IV D5W 50 ML IV SCH (02:02)
--- NOTE | 2019-12-08 06:44 | NUR ---
RN NOTES PM SHIFT PATIENT ALERT AND ORIENTED X3, ON 5LPM VIA NC, COMPLAINING OF PAIN DURING REPOSITIONING AND DIAPER CHANGE, LEFT HIP FRACTURE, BLE CONTRACTURE WITH VENOUS STASIS WOUND. DRESSING REMAINED DRY AND INTACT, HEELS OFFLOADED, ROCEPHIN AND VANCOMYCIN GIVEN DURING SHIFT, AWAITING TRANSFER TO ANOTHER HOSPITAL TO MANAGE LEFT HIP FRACTURE, [facility]ER HEALTH SYSTEM OR [facility]
[2019-12-08] MEDS: LEVOTHYROXINE SODIUM 100 MCG TABLET PO SCH (07:29)
[2019-12-08] MEDS: HYDROCODONE/APAP 5/325MG 1 EACH TABLET PO PRN (07:30)
[2019-12-08] MEDS: ALBUTEROL FS 2.5 MG/0.5 ML VIAL.NEB NEB SCH ×4 (07:35→19:34)
[2019-12-08] MEDS: IPRATROPIUM NEB FS 0.5 MG/2.5 ML AMPUL.NEB NEB SCH ×4 (07:35→19:34)
--- NOTE | 2019-12-08 07:39 | NUR ---
RN MS NOTES PT IN BED, AWAKE, ALERT AND ORIENTED, WITH COMPLAINT OF LEFT HIP AND LEG PAIN, PAIN MEDICATION GIVEN ORDERED, NOT IN DISTRESS, REFUSED BREATHING TREATMENT, CALL LIGHT WITHIN REACH.
[2019-12-08 08:00] VITALS: BP 113/60
[2019-12-08] MEDS: TOPIRAMATE 100 MG TABLET PO SCH ×2 (08:33→16:48)
[2019-12-08] MEDS: GABAPENTIN 400 MG CAPSULE PO SCH ×3 (08:33→16:48)
[2019-12-08] MEDS: SERTRALINE HCL 50 MG TABLET PO SCH (08:33)
[2019-12-08] MEDS: risperiDONE 1 MG TABLET PO SCH ×3 (08:33→16:48)
[2019-12-08] MEDS: MULTIVIT W/MINERALS 1 TAB TABLET PO SCH (08:33)
[2019-12-08] MEDS: ASCORBIC ACID 500 MG TABLET PO SCH (08:33)
[2019-12-08] MEDS: CHOLECALCIFEROL 1,000 UNIT TABLET (VIT D3) PO SCH (08:33)
[2019-12-08] MEDS: DOCUSATE SODIUM 100 MG CAPSULE PO SCH ×3 (08:33→16:55)
[2019-12-08 08:35] LABS: BASOPHILS # (AUTO) 0.1 /CMM (0.0-0.2); BASOPHILS % (AUTO) 0.7 % (0.0-2.0); EOSINOPHILS % (AUTO) 0.7 % (0.0-6.0); HEMATOCRIT 31 % (33-45); HEMOGLOBIN 9.9 g/dL (11.5-14.8); LYMPHOCYTES # (AUTO) 0.7 /CMM (0.8-4.8); LYMPHOCYTES % (AUTO) 7.2 % (20.0-44.0); MEAN CORPUSCULAR HGB CONC 32 g/dl (31.0-36.0); MEAN CORPUSCULAR VOLUME 82 fL (82-100); MONOCYTES % (AUTO) 9.9 % (2.0-12.0); NEUTROPHILS # (AUTO) 7.9 /CMM (1.8-8.9); NEUTROPHILS % (AUTO) 81.5 % (43.0-81.0); PLATELET COUNT (AUTO) 302 /CMM (150-450); RED BLOOD CELL COUNT(AUTO) 3.79 MIL/uL (4.0-5.2); WHITE BLOOD COUNT (AUTO) 9.7 K/uL (4.3-11.0)
[2019-12-08] MEDS: ACETAMINOPHEN 325 MG TABLET PO PRN ×2 (08:36→16:48)
[2019-12-08] MEDS: CLOTRIMAZOLE/BETAMETASONE DIPROPIONATE 15 GM TUBE TP SCH ×2 (08:38→17:13)
[2019-12-08 09:53] LABS: CALCIUM, SERUM 8.6 mg/dL (8.5-10.1); CREATININE 0.6 mg/dL (0.6-1.3); MAGNESIUM 2.5 mg/dL (1.8-2.4); PHOSPHORUS 3.8 mg/dL (2.5-4.9); POTASSIUM 3.6 mmol/L (3.5-5.1)
[2019-12-08] MEDS ORDERED: HYDROCODONE/APAP 10/325MG 1 EA TABLET PO PRN (11:30)
--- NOTE | 2019-12-08 11:30 | NUR ---
RN MS NOTES PT SEEN AND EXAMINED BY DR. BRAMBILA, PLAN OF CARE DISCUSSED WITH PT, VERBALIZED UNDERSTANDING, REFUSED TURNING AND REPOSITIONING AT THIS TIME, EXPLAINED PT RISKS BUT STILL REFUSED.
[2019-12-08] MEDS: NICOTINE PATCH (14MG) 14 MG PATCH.TD24 TD SCH (12:39)
[2019-12-08] MEDS: HYDROMORPHONE 1 MG/1 ML DISP.SYRIN IV PRN ×2 (15:10→18:51)
[2019-12-08 16:00] VITALS: BP 111/60
--- NOTE | 2019-12-08 17:47 | NUR ---
RN MS NOTES PER TAVON BEAVERS TO INSERT FIGUEROA.
--- NOTE | 2019-12-08 18:10 | NUR ---
RN MS NOTES PT IN BED, ASLEEP, EASY TO AROUSE, NO COMPLAINT OF PAIN AT THIS TIME, NOT IN DISTRESS, BREATHING TREATMENT ADMINISTERED BY RT, PM MEDS GIVEN, SEEN BY ID MD, PLAN OF CARE DISCUSSED WITH PT, VERBALIZED UNDERSTANDING, PT REFUSES TO BE REPOSITIONED, DISCUSSED RISKS BUT STILL REFUSED, MD INFORMED OF PT'S BODY TEMP, TYLENOL GIVEN.
--- NOTE | 2019-12-08 19:00 | NUR ---
MS RN NOTE RECEIVED PT IN STABLE CONDITION A/O X4, CURRENTLY IN BED. NO SIGNS OF SOB OR DISTRESS, NO C/O PAIN OR N/V. IV IN L HAND #22, IN PLACE S/L. ALL CURRENT NEEDS ATTENDED TO. BED LOW, LOCKED, UPPER RAILS UP AND CALL LIGHT WITHIN REACH. WILL REPOSITION PER PROTOCOL AND CONT. TO MONITOR.
--- NOTE | 2019-12-08 19:00 | NUR ---
RN MS NOTES PT REFUSED FIGUEROA CATH INSERTION AND URINE COLLECTION VIA STRAIGHT CATH, EXPLAINED THE NEED FOR IT BUT STILL REFUSED.
--- NOTE | 2019-12-08 20:00 | NUR ---
MS RN NOTE PT REFUSING TO BE REPOSITIONED, STATING THAT IT HURTS TOO MUCH. WILL TRY AGAIN.
[2019-12-08 22:11] VITALS: BP 94/51
--- NOTE | 2019-12-09 | NUR ---
MS RN NOTE ATTEMPTED TO REPOSITION PT, PER PATIENT IT IS TOO PAINFUL SO SHE DECLINED REPOSITION.
[2019-12-09] MEDS: HYDROCODONE/APAP 5/325MG 1 EACH TABLET PO PRN ×4 (00:43→18:11)
[2019-12-09] MEDS: VANCOMYCIN 0.75 GM in IV D5W 250 ML IV SCH ×2 (01:03→15:39)
--- NOTE | 2019-12-09 02:00 | NUR ---
MS RN NOTE ATTEMPTED TO REPOSITION PT. PT DECLINE, WILL CONTINUE TO MONITOR.
[2019-12-09] MEDS: CEFTRIAXONE 1 G in IV D5W 50 ML IV SCH (02:09)
--- NOTE | 2019-12-09 04:06 | NUR ---
MS RN NOTE ATTEMPTED TO REPOSITION PT. PT DECLINED. WILL CONT. TO MONITOR.
[2019-12-09] MEDS: ACETAMINOPHEN 325 MG TABLET PO PRN ×3 (04:09→21:38)
--- NOTE | 2019-12-09 05:30 | NUR ---
MS RN NOTE DURING MORNING CARE, AFTER MULTIPLE ATTEMPTS, PT REFUSED FOR BILATERAL LOWER EXTREMITY DRESSINGS TO BE CHANGED. PT ALLOWED FIGUEROA TO BE INSERTED ORDERED.
--- NOTE | 2019-12-09 06:30 | NUR ---
MS RN NOTE PT REMAINS IN STABLE CONDITION A/O X4, CURRENTLY IN BED. NO SIGNS OF SOB OR DISTRESS, NO C/O PAIN OR N/V. IV IN L HAND #22, IN PLACE S/L. ALL CURRENT NEEDS ATTENDED TO. BED LOW, LOCKED, UPPER RAILS UP AND CALL LIGHT WITHIN REACH. WILL CONT TO MONITOR.
[2019-12-09 06:42] LABS: BASOPHILS % (AUTO) 0.3 % (0.0-2.0); EOSINOPHILS % (AUTO) 2.1 % (0.0-6.0); HEMATOCRIT 31 % (33-45); HEMOGLOBIN 9.8 g/dL (11.5-14.8); LYMPHOCYTES # (AUTO) 0.8 /CMM (0.8-4.8); LYMPHOCYTES % (AUTO) 9.2 % (20.0-44.0); MEAN CORPUSCULAR HGB CONC 32 g/dl (31.0-36.0); MEAN CORPUSCULAR VOLUME 83 fL (82-100); MONOCYTES % (AUTO) 11.9 % (2.0-12.0); NEUTROPHILS # (AUTO) 6.5 /CMM (1.8-8.9); NEUTROPHILS % (AUTO) 76.5 % (43.0-81.0); PLATELET COUNT (AUTO) 328 /CMM (150-450); RED BLOOD CELL COUNT(AUTO) 3.75 MIL/uL (4.0-5.2); WHITE BLOOD COUNT (AUTO) 8.5 K/uL (4.3-11.0)
[2019-12-09 07:01] LABS: CALCIUM, SERUM 8.1 mg/dL (8.5-10.1); CREATININE 0.6 mg/dL (0.6-1.3); MAGNESIUM 2.4 mg/dL (1.8-2.4); PHOSPHORUS 3.7 mg/dL (2.5-4.9); POTASSIUM 3.7 mmol/L (3.5-5.1)
--- NOTE | 2019-12-09 07:30 | NUR ---
PT RECEIVED RESTING COMFORTABLY IN BED. NO S/S OR C/O PAIN OR DISTRESS NOTED. SIDE RAILS UP X2, CALL LIGHT LEFT WITHIN REACH. WILL CONTINUE PLAN OF CARE.
[2019-12-09] MEDS: IPRATROPIUM NEB FS 0.5 MG/2.5 ML AMPUL.NEB NEB SCH ×4 (07:35→19:30)
[2019-12-09] MEDS: ALBUTEROL FS 2.5 MG/0.5 ML VIAL.NEB NEB SCH ×4 (07:35→19:30)
[2019-12-09 08:00] VITALS: BP 106/57
[2019-12-09] MEDS: GABAPENTIN 400 MG CAPSULE PO SCH ×3 (08:51→16:25)
[2019-12-09] MEDS: ASCORBIC ACID 500 MG TABLET PO SCH (08:51)
[2019-12-09] MEDS: MULTIVIT W/MINERALS 1 TAB TABLET PO SCH (08:51)
[2019-12-09] MEDS: CHOLECALCIFEROL 1,000 UNIT TABLET (VIT D3) PO SCH (08:51)
[2019-12-09] MEDS: SERTRALINE HCL 50 MG TABLET PO SCH (08:52)
[2019-12-09] MEDS: LEVOTHYROXINE SODIUM 100 MCG TABLET PO SCH (08:52)
[2019-12-09] MEDS: NICOTINE PATCH (14MG) 14 MG PATCH.TD24 TD SCH (08:52)
[2019-12-09] MEDS: TOPIRAMATE 100 MG TABLET PO SCH ×2 (08:52→16:25)
[2019-12-09] MEDS: DOCUSATE SODIUM 100 MG CAPSULE PO SCH ×2 (09:00→16:30)
[2019-12-09] MEDS: risperiDONE 1 MG TABLET PO SCH ×2 (09:00→16:28)
[2019-12-09] MEDS ORDERED: NICOTINE PATCH (14MG) 14 MG PATCH.TD24 TD SCH (09:00)
[2019-12-09] MEDS: CLOTRIMAZOLE/BETAMETASONE DIPROPIONATE 15 GM TUBE TP SCH ×2 (09:05→16:29)
[2019-12-09 10:38] LABS: APPEARANCE,URINE SL CLOUDY (CLEAR); BILIRUBIN,URINE NEGATIVE (NEGATIVE); BLOOD, URINE MODERATE Ery/uL (NEGATIVE); COLOR,URINE YELLOW (YELLOW); KETONES,URINE NEGATIVE (NEGATIVE); LEUKOCYTE ESTERASE ,URINE NEGATIVE (NEGATIVE); NITRITE, URINE NEGATIVE (NEGATIVE); PROTEIN,URINE NEGATIVE (NEGATIVE); UGLUCOSE NEGATIVE (NEGATIVE); UROBILINOGEN,URINE 0.2 EU/dL (0.2)
[2019-12-09 11:14] LABS: BACTERIA,URINE Few /HPF (None Seen); WBC,URINE 0-2 /HPF (0-3)
[2019-12-09 11:15] LABS: MUCUS,URINE Few /LPF (None Seen); URINE AMORPHOUS URATE Few /HPF (None Seen)
[2019-12-09 16:00] VITALS: BP 108/63
--- NOTE | 2019-12-09 19:41 | NUR ---
CHANGE OF SHIFT REPORT PT RESTING COMFORTABLY IN BED. NO S/S OR C/O PAIN OR DISTRESS NOTED. SIDE RAILS UP X2. CALL LIGHT LEFT WITHIN REACH. PT KEPT CLEAN, DRY, AND COMFORTABLE. NO SIGNIFICANT CHANGES SINCE PREVIOUS SHIFT. REPORT GIVEN TO MIGUEL BARRAZA.
--- NOTE | 2019-12-09 20:00 | NUR ---
MS RN NOTES RECEIVED PATIENT ASLEEP IN BED WITH NO DISTRESS NOTED. CALL LIGHT WITHIN REACH. PERIPHERAL LINE INTACT AND PATENT. BED IN LOW LOCK SETTING WITH BED ALARM ON AND FUNCTIONING PROPERLY. ROOM FREE OF CLUTTER AND BELONGINGS KEPT NEAR BEDSIDE. WILL CONTINUE TO MONITOR.
[2019-12-09 20:26] VITALS: BP 102/54
[2019-12-10] MEDS: HYDROCODONE/APAP 5/325MG 1 EACH TABLET PO PRN ×2 (00:35→06:11)
[2019-12-10] MEDS: VANCOMYCIN 0.75 GM in IV D5W 250 ML IV SCH (01:51)
[2019-12-10] MEDS: CEFTRIAXONE 1 G in IV D5W 50 ML IV SCH (03:29)
[2019-12-10] MEDS: ACETAMINOPHEN 325 MG TABLET PO PRN ×2 (04:42→10:56)
--- NOTE | 2019-12-10 06:38 | NUR ---
MS RN NOTES PATIENT AWAKE IN BED WITH NO DISTRESS NOTED. CALL LIGHT WITHIN REACH. ALL DUE MEDS GIVEN ORDERED WITH NO ASE. WOUND CARE RENDERED AND TOLERATED WELL. PERIPHERAL LINE INTACT AND PATENT. BED IN LOW LOCK SETTING WITH BED ALARM ON AND FUNCTIONING PROPERLY. ROOM FREE OF CLUTTER AND BELONGINGS KEPT NEAR BEDSIDE. WILL ENDORSE TO ONCOMING SHIFT.
[2019-12-10 06:56] LABS: CALCIUM, SERUM 7.9 mg/dL (8.5-10.1); CARBON DIOXIDE 30 mmol/L (21-32); CHLORIDE 104 mmol/L (98-107); CREATININE 0.5 mg/dL (0.6-1.3); GLUCOSE 111 mg/dL (74-106); POTASSIUM 3.6 mmol/L (3.5-5.1); SODIUM SERUM 139 mmol/L (136-145); UREA NITROGEN, BLOOD 13 mg/dL (7-18)
--- NOTE | 2019-12-10 07:19 | NUR ---
RN OPENING NOTE PT WAS RECEIVED IN BED AT LOWEST AND LOCKED POSITION WITH SIDE RAILS UP X2, A/O X4 BREATHING EVEN AND UNLABORED ON NC, NO S/S OF ANY DISTRESS OR PAIN NOTED AT THIS TIME, IV IS PATENT AND INTACT, INFORMED BY NIGHT RN THAT PT TENDS TO REFUSE CARE, PLAN FOR TRANSFER TO HIGHER LEVEL OF CARE, SAFETY PRECAUTIONS IN PLACE, CALL LIGHT IN REACH, WILL MONITOR ACCORDINGLY
[2019-12-10] MEDS: ALBUTEROL FS 2.5 MG/0.5 ML VIAL.NEB NEB SCH ×2 (07:35→11:30)
[2019-12-10] MEDS: IPRATROPIUM NEB FS 0.5 MG/2.5 ML AMPUL.NEB NEB SCH ×2 (07:35→11:30)
[2019-12-10 08:00] VITALS: BP 96/50
[2019-12-10] MEDS: CHOLECALCIFEROL 1,000 UNIT TABLET (VIT D3) PO SCH (08:11)
[2019-12-10] MEDS: SERTRALINE HCL 50 MG TABLET PO SCH (08:12)
[2019-12-10] MEDS: MULTIVIT W/MINERALS 1 TAB TABLET PO SCH (08:12)
[2019-12-10] MEDS: DOCUSATE SODIUM 100 MG CAPSULE PO SCH (08:13)
[2019-12-10] MEDS: GABAPENTIN 400 MG CAPSULE PO SCH (08:13)
[2019-12-10] MEDS: LEVOTHYROXINE SODIUM 100 MCG TABLET PO SCH (08:13)
[2019-12-10] MEDS: risperiDONE 1 MG TABLET PO SCH (08:13)
[2019-12-10] MEDS: ASCORBIC ACID 500 MG TABLET PO SCH (08:13)
[2019-12-10] MEDS: TOPIRAMATE 100 MG TABLET PO SCH (08:15)
[2019-12-10] MEDS: LORAZEPAM 1 MG TABLET PO PRN (08:17)
[2019-12-10] MEDS: CLOTRIMAZOLE/BETAMETASONE DIPROPIONATE 15 GM TUBE TP SCH (08:20)
[2019-12-10] MEDS: NICOTINE PATCH (14MG) 14 MG PATCH.TD24 TD SCH (08:20)
[2019-12-10] MEDS ORDERED: ENOXAPARIN SODIUM 40 MG/0.4 ML DISP.SYRIN SQ SCH (09:00)
[2019-12-10] MEDS: HYDROMORPHONE 1 MG/1 ML DISP.SYRIN IV PRN (11:30)
--- NOTE | 2019-12-10 12:00 | NUR ---
DISCHARGE/TRANSFER NOTE PT WAS DISCHARGED AND TRANSFERRED AT THIS TIME TO [facility] WHERE REPORT WAS GIVEN TO CALEB BARRAZA. INFORMED THAT PT WILL BE GOING TO ROOM 4325. ID BAND WAS REMOVED. LEFT HAND GAUGE 22 IV WAS LEFT IN PLACE. PHOTOS OF SKIN IN THE CHART. ALL D/C PAPERWORK, EXITCARE AND BELONGINGS LIST WERE SIGNED, DISCUSSED AND HANDED TO PATIENT AND EMT CREW. ALL BELONGINGS WERE GIVEN TO THE EMT CREW. ALL NEEDS WERE ATTENDED TO DURING HER STAY. PT LEFT IN STABLE CONDITION A/O X3-4 BREATHING EVEN AND UNLABORED ON 5L WITH NO S/S OF ANY DISTRESS OR PAIN, VS STABLE.
== END 2019-12-10 12:00 | disposition short-term general hospital (02) | DRG 872 ==
LOC: ER 16:53 → MEDSG2 20:56
PROVIDERS: ADMIT Nurse Practitioner Acute Care; ATTEND Registered Nurse
DX: A41.9 Sepsis, unspecified organism (principal); M80.052A Age-related osteoporosis with current pathological fracture, left femur, initial encounter for fracture; L03.116 Cellulitis of left lower limb; L03.115 Cellulitis of right lower limb; E87.2 Acidosis; I50.22 Chronic systolic (congestive) heart failure; D72.829 Elevated white blood cell count, unspecified; E86.0 Dehydration; J44.9 Chronic obstructive pulmonary disease, unspecified; G40.909 Epilepsy, unspecified, not intractable, without status epilepticus; I11.0 Hypertensive heart disease with heart failure; I87.2 Venous insufficiency (chronic) (peripheral); E03.9 Hypothyroidism, unspecified; G89.4 Chronic pain syndrome; F90.9 Attention-deficit hyperactivity disorder, unspecified type; R65.20 Severe sepsis without septic shock; F32.9 Major depressive disorder, single episode, unspecified; Z87.891 Personal history of nicotine dependence; Z96.643 Presence of artificial hip joint, bilateral
CPT/HCPCS: 36415; 36600; 71045-TC; 72170-TC; 80048-TC; 80061-TC; 80202-TC; 81000-TC; 82247-TC; 82248-TC; 82803-TC; 83605-TC; 83735-TC; 84100-TC; 84443-TC; 85025-TC; 85730-TC; 87040-TC; 87081-TC; 87086-TC; 93307-TC; 94799-TC; A6403; G0378; J0696; J1170; J1650; J3370; J7030; J7050; J7060

== ENCOUNTER 2020-05-06 16:25 | Emergency (ER) | payer MEDICARE, OTHER ==
[~2020-05-06] VITALS: Ht 165.1 cm; Wt 90.7 kg
[~2020-05-06 16:25] MED LIST changes: -ACET-868 PO; +ACET325T53 PO; +ALBU2.5V13 NEB; +ALLA266C2 TP; +ASCO-352 PO; -ASCO500T9 PO; +CEFT1FRO2 IV; -CLIN300C11 PO; -DIPH25TA25 PO; -FURO-145 PO; +GABA-536 PO; +HYDR-3972 PO; -HYDR-4354 PO; +HYDR2DIS IV; +IPRA0.2S9 NEB; +MAG30ORA PO; +MAGN400O6 PO; +ONDA4VIA23 IVP; -VANC1PLA10 IV
--- NOTE | 2020-05-06 16:31 | NUR ---
PT PHYLLIS LEARY FROM [facility] C/O L HIP PAIN. PER REPORT L HIP FRACTURE BACK IN NOVEMBER PT WILL BE NEEDING AN ORIF PROCEDURE THAT WAS REFUSED BY CONSERVATOR THAT TIME. PT WAS GIVEN NORCO 5/325 MG PO AT 2PM. 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 GOWNED AND PLACED ON MONITOR. AWAITING MD MENDIETA.
--- NOTE | 2020-05-06 16:48 | NUR ---
DR KINGSLEY AT BEDSIDE FOR EVAL.
[2020-05-06 16:58] LABS: BASOPHILS # (AUTO) 0.1 /CMM (0.0-0.2); BASOPHILS % (AUTO) 0.9 % (0.0-2.0); EOSINOPHILS % (AUTO) 4.6 % (0.0-6.0); HEMATOCRIT 34 % (33-45); HEMOGLOBIN 10.8 g/dL (11.5-14.8); LYMPHOCYTES # (AUTO) 1.6 /CMM (0.8-4.8); LYMPHOCYTES % (AUTO) 17.2 % (20.0-44.0); MEAN CORPUSCULAR HGB CONC 32 g/dl (31.0-36.0); MEAN CORPUSCULAR VOLUME 85 fL (82-100); MONOCYTES # (AUTO) 0.8 /CMM (0.1-1.30); MONOCYTES % (AUTO) 8.3 % (2.0-12.0); NEUTROPHILS # (AUTO) 6.5 /CMM (1.8-8.9); PLATELET COUNT (AUTO) 331 /CMM (150-450); RED BLOOD CELL COUNT(AUTO) 3.99 MIL/uL (4.0-5.2); WHITE BLOOD COUNT (AUTO) 9.4 K/uL (4.3-11.0)
[2020-05-06] MEDS ORDERED: HYDROCODONE/APAP 10/325MG 1 EA TABLET ONE (17:04)
--- NOTE | 2020-05-06 17:06 | NUR ---
C/O SEVERE L HIP PAIN. REFUSING XRAY AT THIS TIME. DR KINGSLEY MADE AWARE. NORCO 10/325 MG GIVEN PO.
[2020-05-06 17:07] LABS: CALCIUM, SERUM 9.5 mg/dL (8.5-10.1); CREATININE 0.8 mg/dL (0.6-1.3); POTASSIUM 3.7 mmol/L (3.5-5.1)
[2020-05-06] MEDS ORDERED: HYDROCODONE/APAP 10/325MG 1 EA TABLET PO ONE (17:30)
--- NOTE | 2020-05-06 17:30 | NUR ---
RADIOLOGY AT BEDSIDE FOR CHEST XRAY.
--- NOTE | 2020-05-06 17:32 | NUR ---
CALLED [facility] PAGED ASUNCION
[2020-05-06] MEDS ORDERED: IV NS 0.9% 500 ML BAG IV ONE (18:00)
--- NOTE | 2020-05-06 18:24 | NUR ---
CALLED TRANSPORT [facility] [phone] ETA IS 60 MINS PER MARCI
--- NOTE | 2020-05-06 18:29 | NUR ---
REPORT GIVEN TO LITO BARRAZA AT [place]. AWAITING TRANSPORT AMBULANCE.
--- NOTE | 2020-05-06 19:08 | NUR ---
REPORT TO ELIZABETH BARRAZA FOR SHANIKA.
[2020-05-06 19:30] VITALS: BP 103/55
--- NOTE | 2020-05-06 19:38 | NUR ---
PT REQUESTED FOR NORCO/PAIN MEDS, PER DR KINGSLEY SHE HAS REC'D ENOUGH TODAY AND NOT ADVISABLE TO GET ANOTHER ONE, PT MADE AWARE, REMINDED PT THAT NORCO IS EVERY 4-6HRS AND SHE ALREADY REC'D DOSE 2HRS AGO
--- NOTE | 2020-05-06 19:53 | NUR ---
PT LEFT FACILTIY TO [facility]. REPORT GIVEN TO AMBULANCE STAFF. LEFT IN STABLE CONDITION
== END 2020-05-06 19:56 | disposition short-term general hospital (02) ==
LOC: ER 16:28
DX: S72.002A Fracture of unspecified part of neck of left femur, initial encounter for closed fracture (principal); E86.0 Dehydration; G40.909 Epilepsy, unspecified, not intractable, without status epilepticus; E03.9 Hypothyroidism, unspecified; I11.0 Hypertensive heart disease with heart failure; I50.9 Heart failure, unspecified; J44.9 Chronic obstructive pulmonary disease, unspecified; F90.9 Attention-deficit hyperactivity disorder, unspecified type; Z98.890 Other specified postprocedural states; Z88.0 Allergy status to penicillin; Z88.8 Allergy status to other drugs, medicaments and biological substances; Z79.899 Other long term (current) drug therapy; X58.XXXA Exposure to other specified factors, initial encounter; Y93.89 Activity, other specified; Y92.89 Other specified places as the place of occurrence of the external cause; Y99.8 Other external cause status
CPT/HCPCS: 36415; 71045; 80048; 85025; 85730; 93005; 99285; J7040

== ENCOUNTER 2020-09-08 23:40 | Inpatient (IN) | payer MEDICARE, OTHER ==
[~2020-09-08] VITALS: Ht 175.3 cm; Wt 77.1 kg
--- NOTE | 2020-09-09 00:04 | NUR ---
called [facility], , nurse douglas, states wound on left hip is a pressure sore noted with pus.
--- NOTE | 2020-09-09 00:05 | NUR ---
IV INITIATED RAC 18G. LABS DRAWN FROM SITE. ENVIRONMENTAL SERVICES PROJECT MANAGER AT BEDSIDE FOR COLLECTION. IV INTACT AND PATENT, PLACED ON SALINE LOCK
--- NOTE | 2020-09-09 00:28 | NUR ---
COVID SWAB COLLECTED AND SENT TO LAB
--- NOTE | 2020-09-09 00:35 | NUR ---
URINE COLLECTE, CALLED LAB FOR SENIOR CHEMICAL ENGINEER
--- NOTE | 2020-09-09 00:44 | NUR ---
RADIOLOGY AT BEDSIDE FOR CXR
[2020-09-09 00:51] LABS: CALCIUM, SERUM 9.5 mg/dL (8.5-10.1); CARBON DIOXIDE 21 mmol/L (21-32); CHLORIDE 102 mmol/L (98-107); CREATININE 0.7 mg/dL (0.6-1.3); GLUCOSE 123 mg/dL (74-106); POTASSIUM 3.5 mmol/L (3.5-5.1); SODIUM SERUM 135 mmol/L (136-145); UREA NITROGEN, BLOOD 19 mg/dL (7-18)
[2020-09-09] MEDS ORDERED: LORAZEPAM INJ 2 MG/ML VIAL ONE (00:59)
[2020-09-09] MEDS ORDERED: LORAZEPAM INJ 2 MG/ML VIAL IV ONE (01:00)
[2020-09-09 01:01] LABS: APPEARANCE,URINE CLOUDY (CLEAR); BILIRUBIN,URINE NEGATIVE (NEGATIVE); BLOOD, URINE LARGE Ery/uL (NEGATIVE); COLOR,URINE YELLOW (YELLOW); KETONES,URINE NEGATIVE (NEGATIVE); LEUKOCYTE ESTERASE ,URINE LARGE (NEGATIVE); NITRITE, URINE POSITIVE (NEGATIVE); PH,URINE 7.5 (5.0-8.0); PROTEIN,URINE 100 mg/dl (NEGATIVE); UGLUCOSE NEGATIVE (NEGATIVE); UROBILINOGEN,URINE 0.2 EU/dL (0.2)
[2020-09-09 01:03] LABS: ALANINE AMINOTRANSFERASE 84 U/L (12-78); ALBUMIN 1.9 g/dL (3.4-5.0); ALKALINE PHOSPHATASE 141 U/L (46-116); ASPARTATE AMINOTRANSFERASE 63 U/L (15-37); B-TYPE NATRIURETIC PEPTIDE 505 PG/ML (0-125); BILIRUBIN,TOTAL 0.1 mg/dL (0.2-1.0); TOTAL PROTEIN, SERUM 7.3 g/dL (6.4-8.2)
--- NOTE | 2020-09-09 01:06 | NUR ---
per lab covid test negative.
[2020-09-09 01:17] LABS: BACTERIA,URINE Many /HPF (None Seen); RBC,URINE 21-50 /HPF (0-2); SQUAMOUS EPITHELIAL CELL,UR Few /HPF (None Seen); WBC,URINE TOO NUMEROUS TO COUN /HPF (0-3)
[2020-09-09 01:18] LABS: TRIPLE PHOSPHATE CRYSTAL,UR Few /HPF (None Seen)
[2020-09-09 01:27] LABS: BASOPHILS # (AUTO) 0.2 /CMM (0.0-0.2); BASOPHILS % (AUTO) 1.5 % (0.0-2.0); EOSINOPHILS % (AUTO) 2.8 % (0.0-6.0); HEMATOCRIT 29 % (33-45); LYMPHOCYTES # (AUTO) 2.4 /CMM (0.8-4.8); LYMPHOCYTES % (AUTO) 15.6 % (20.0-44.0); MEAN CORPUSCULAR HGB CONC 31 g/dl (31.0-36.0); MEAN CORPUSCULAR VOLUME 82 fL (82-100); MONOCYTES % (AUTO) 6.1 % (2.0-12.0); NEUTROPHILS # (AUTO) 11.7 /CMM (1.8-8.9); PLATELET COUNT (AUTO) 609 /CMM (150-450); RED BLOOD CELL COUNT(AUTO) 3.54 MIL/uL (4.0-5.2); WHITE BLOOD COUNT (AUTO) 15.7 K/uL (4.3-11.0)
[2020-09-09] MEDS ORDERED: DOCU-141 PO (01:29)
[2020-09-09] MEDS ORDERED: PANT20TA2 PO (01:29)
[2020-09-09] MEDS ORDERED: TOPI100T38 PO (01:29)
[2020-09-09] MEDS ORDERED: FOLI0.4T2 PO (01:29)
[2020-09-09] MEDS ORDERED: ASCO-310 PO (01:29)
[2020-09-09] MEDS ORDERED: LEVO125T8 PO (01:29)
[2020-09-09] MEDS ORDERED: GABA-536 PO (01:29)
[2020-09-09] MEDS ORDERED: LEVOFLOXACIN 500 MG /D5W 100ML 500 MG/100 ML PIGGYBACK IV ONE (01:30)
[2020-09-09] MEDS ORDERED: VANCOMYCIN 1 GM in IV D5W 250 ML IV ONE (01:30)
[2020-09-09] MEDS ORDERED: VANCOMYCIN 1 GM VIAL ONE (01:43)
--- NOTE | 2020-09-09 02:00 | NUR ---
PANEL PAGED PER MD'S ORDER
--- NOTE | 2020-09-09 02:31 | NUR ---
DR. BURT SPEAKING WITH DR. ENAMORADO REGARDING ADMISSION
[2020-09-09] MEDS ORDERED: LEVOFLOXACIN 500 MG /D5W 100ML 100 ML IV ONE (02:38)
--- NOTE | 2020-09-09 02:52 | NUR ---
REPORT GIVEN TO SHINE
--- NOTE | 2020-09-09 03:14 | NUR ---
PT WAS TRANSFERRED TO THIRD FLOOR IN STABLE CONDITION
[2020-09-09 03:30] VITALS: BP 127/68
[2020-09-09] MEDS: MORPHINE SULFATE INJ 4 MG/ML DISP.SYRIN IV PRN ×2 (03:36→18:25)
--- NOTE | 2020-09-09 03:45 | NUR ---
MS RN OPENING NOTES RECEIVED PATIENT FROM ER VIA GURWENDY, ALERT AND ORIENTED X 2-3. VERBALLY RESPONSIVE AND ABLE TO FOLLOW DIRECTIONS. BREATHING REGULAR AND UNLABORED ON NASAL CANNULA AT 2L/MIN. RIGHT AC IV LINE INTACT AND INFUSING WELL WITH NO BLEEDING OR S/S OF INFILTRATION NOTED. BODY ASSESSMENT DONE, SEEN WITH MULTIPLE PRESSURE ULCERS ON LEFT LEG, LEFT HEEL AND SACRAL AREA. DEEP TISSUE INJURY NOTED ON LEFT HEEL AND RIGHT BUTTOCK. INFECTED LEFT HIP SURGICAL WOUND WITH MODERATE SEROSANGUINEOUS DISCHARGES. PHOTOS TAKEN ATTACHED TO CHART. WOUND CULTURE SPECIMENS TAKEN AND SENT TO LAB. CALLED BUT UNABLE TO SPEAK TO PATIENT CONSERVATOR ON FILE, PATIENT REQUESTED TO BE FULL CODE FOR NOW. DENIES SUICIDAL IDEATION AT THIS TIME. COMPLAINED OF 9/10 LEFT HIP PAIN, NON-PHARMACOLOGICAL INTERVENTIONS PROVIDED. BED LOW AND LOCKED ON SEMI FOWLERS POSITION. CALL LIGHT IN REACH. WILL CONTINUE TO MONITOR.
--- NOTE | 2020-09-09 03:50 | NUR ---
MS RN NOTES COMPLAINED OF 9/10 LEFT HIP PAIN, MORPHINE 4MG GIVEN VIA IVP. NON-PHARMACOLOGICAL INTERVENTIONS PROVIDED. VITAL SIGNS WNL. WILL CONTINUE TO MONITOR.
[2020-09-09 04:00] VITALS: BP 127/68
[2020-09-09] MEDS ORDERED: ONDANSETRON HCL/PF 4 MG/2 ML VIAL IV PRN (04:00)
[2020-09-09] MEDS: IV NS 0.9% 1,000 ML IV PRN (04:16)
--- NOTE | 2020-09-09 05:00 | NUR ---
MS RN NOTES PATIENT REFUSED DVT PUMP PER HER IT'S UNCOMFORTABLE. RISK AND BENEFITS EXPLAINED. CHEMICAL DVT PROPHYLAXIS CONTRAINDICATED FOR BLEEDING LEFT HIP OLD SURGICAL WOUND. LIONEL ENAMORADO NOTIFIED. Addendum: 09/09/20 at 0613 by BRIGHT CAUSEY RN ADDENDUM: CHEMICAL DVT PROPHYLAXIS CONTRAINDICATION LOW H&H LEVEL
[2020-09-09] MEDS: PANTOPRAZOLE 40 MG TABLET.DR PO SCH (06:35)
--- NOTE | 2020-09-09 06:45 | NUR ---
MS RN NOTES PATIENT STILL COMPLAINING OF LEFT HIP PAIN, SHE SAID NORCO WORKS BETTER FOR HER THAN MORPHINE. LIONEL ENAMORADO NOTIFIED AWAITING ORDERS. WILL ENDORSED ACCORDINGLY.
--- NOTE | 2020-09-09 06:50 | NUR ---
MS RN CLOSING NOTES PATIENT IN BED ALERT AND ORIENTED X 2-3. AFEBRILE WITH NO S/S OF DISTRESS OBSERVED. RIGHT AC IV LINE INTACT AND INFUSING WELL. COMPLAINED OF 7/10 LEFT HIP PAIN, MORPHINE NOT DUE YET. NON-PHARMACOLOGICAL INTERVENTIONS PROVIDED. BED LOW AND LOCKED ON SEMI FOWLERS POSITION. CALL LIGHT IN REACH. WILL ENDORSE TO MORNING SHIFT FOR SHANIKA.
--- NOTE | 2020-09-09 07:45 | NUR ---
MS RN OPENING SHIFT NOTES RECEIVED PATIENT IN BED A/OX3. PT IS ON 2 L O2 VIA NC WITH NO S/S OF ACUTE RESPIRATORY DISTRESS NOTED. NO SOB. IV TO RT AC 18G INTACT AND INFUSING WELL. COMPLAINED OF 9/10 LEFT HIP PAIN, INFORMED PT NEXT DOSE NOT DUE YET. RELAXATION TECHNIQUES ENCOURAGED. BED IS AT LOW POSITION AND LOCKED WITH CALL LIGHT WITH IN REACH. SAFETY MEASURES IN PLACE. WILL CONTINUE TO MONITOR PT THROUGHOUT SHIFT
[2020-09-09 08:00] VITALS: BP 114/66
[2020-09-09] MEDS ORDERED: HYDROCODONE/APAP 5/325MG TABLET PO PRN (08:30)
--- NOTE | 2020-09-09 08:51 | NUR ---
WOUND CARE CONSULT: PT ADAMANTLY REFUSED SKIN ASSESSMENT. REVIEWED CHART, NURSING DOCUMENTATION AND PHOTOS WHICH INDICATE DEEP TISSUE INJURIES TO SACRAL AREA, BUTTOCKS AND WOUNDS TO LOWER EXTREMITIES WELL LEFT HIP INCISION WITH OPEN AREA, PER NURSING STAFF, ALL PRESENT ON ADMISSION. RECOMMEND SURGICAL AND DPM CONSULTS. DR MATA AND DR JUAREZ NOTIFIED OF CONSULT REQUESTS. RECOMMENDATIONS MADE FOR SKIN PROTECTION. DISCUSSED WITH NURSING STAFF. MD IN AGREEMENT WITH PLAN OF CARE. Addendum: 09/09/20 at 0900 by NAPOLEON BEAN WNDNU FIRST STEP LOW AIRLOSS MATTRESS IS ON ORDER.
[2020-09-09 08:59] LABS: ALANINE AMINOTRANSFERASE 63 U/L (12-78); ALBUMIN 1.7 g/dL (3.4-5.0); ALKALINE PHOSPHATASE 118 U/L (46-116); ASPARTATE AMINOTRANSFERASE 45 U/L (15-37); CALCIUM, SERUM 8.9 mg/dL (8.5-10.1); CARBON DIOXIDE 21 mmol/L (21-32); CHLORIDE 103 mmol/L (98-107); CREATININE 0.7 mg/dL (0.6-1.3); GLUCOSE 132 mg/dL (74-106); MAGNESIUM 2.1 mg/dL (1.8-2.4); PHOSPHORUS 3.3 mg/dL (2.5-4.9); POTASSIUM 3.3 mmol/L (3.5-5.1); SODIUM SERUM 135 mmol/L (136-145); TOTAL PROTEIN, SERUM 6.6 g/dL (6.4-8.2); UREA NITROGEN, BLOOD 17 mg/dL (7-18)
[2020-09-09] MEDS ORDERED: Z GUARD REMEDY 2 OZ OINT TP PRN (09:00)
[2020-09-09] MEDS: HYDROCODONE/APAP 10/325MG TABLET PO PRN ×2 (09:08→16:27)
[2020-09-09 09:19] LABS: BASOPHILS % (AUTO) 0.3 % (0.0-2.0); EOSINOPHILS % (AUTO) 2.8 % (0.0-6.0); HEMATOCRIT 27 % (33-45); HEMOGLOBIN 8.3 g/dL (11.5-14.8); LYMPHOCYTES # (AUTO) 1.6 /CMM (0.8-4.8); LYMPHOCYTES % (AUTO) 11.7 % (20.0-44.0); MEAN CORPUSCULAR HGB CONC 31 g/dl (31.0-36.0); MEAN CORPUSCULAR VOLUME 83 fL (82-100); MONOCYTES # (AUTO) 0.8 /CMM (0.1-1.30); MONOCYTES % (AUTO) 5.7 % (2.0-12.0); NEUTROPHILS # (AUTO) 10.6 /CMM (1.8-8.9); NEUTROPHILS % (AUTO) 79.5 % (43.0-81.0); PLATELET COUNT (AUTO) 513 /CMM (150-450); RED BLOOD CELL COUNT(AUTO) 3.21 MIL/uL (4.0-5.2); WHITE BLOOD COUNT (AUTO) 13.3 K/uL (4.3-11.0)
[2020-09-09] MEDS: LEVOTHYROXINE SODIUM 125 MCG TABLET PO SCH (09:31)
[2020-09-09] MEDS: GABAPENTIN 400 MG CAPSULE PO SCH ×3 (09:31→16:26)
[2020-09-09] MEDS: FOLIC ACID 1 MG TABLET PO SCH (09:31)
[2020-09-09] MEDS: ASCORBIC ACID 500 MG TABLET PO SCH (09:32)
[2020-09-09] MEDS: TOPIRAMATE 100 MG TABLET PO SCH ×2 (09:32→16:27)
[2020-09-09 09:47] LABS: BILIRUBIN,TOTAL < 0.1 mg/dL (0.2-1.0)
[2020-09-09] MEDS: Z GUARD REMEDY 2 OZ OINT TP SCH (10:00)
[2020-09-09 11:18] LABS: THYROID STIMULATING HORMONE 7.909 uIU/mL (0.358-3.74)
[2020-09-09 11:21] LABS: BAND % (MANUAL) 1 % (0.0-5.0); BASOPHILS % (MANUAL) 0 % (0.0-2.0); EOSINOPHILS % (MANUAL) 0 % (0-4); MONOCYTES % (MANUAL) 1 % (0-11.0); NEUTROPHILS % (MANUAL) 79 (42-76); REACTIVE LYMPHOCYTES 6 % (0-0)
[2020-09-09 11:22] LABS: LYMPHOCYTES % (MANUAL) 13 % (16-48)
--- NOTE | 2020-09-09 13:10 | NUR ---
This SW received a call from Kareem Lambert from the Office of Public Guardian . Kareem Lambert is patient's public guardian. Per Kareem, Kareem will fax information regarding patient guardianship to this fax machine. SW to follow up with rim turning machine operator regarding patient's public guardian information as soon as Kareem Lambert provides it to this SW.
[2020-09-09] MEDS: VANCOMYCIN 0.75 GM in IV D5W 250 ML IV SCH (14:08)
--- NOTE | 2020-09-09 15:02 | NUR ---
SW received a copy of official guardianship paperwork from Kareem Zhu from the Office of Public Guardian and placed it in the patient's chart.
[2020-09-09 16:00] VITALS: BP 104/56
--- NOTE | 2020-09-09 18:59 | NUR ---
MS RN CLOSING SHIFT NOTES PATIENT IN BED ALERT AND ORIENTED X3. ON 2 L OXYGEN VIA NC WITH NO S/S OF ACUTE RESPIRATORY DISTRESS NOTED.IV TO RTAC PATENT AND INTACT WITH NO REDNESS OR SWELLING NOTED. NO SIGNS OF INFILTRATION. PT REFUSED WOUND CONSULT TODAY, REFUSED LOW AIR MATRESS. PT C/O OF 9/10 PAIN TO LEFT HIP AND STATES PAIN ALL OVER BODY. MORPHINE 4MG GIVEN IV, BED IS AT LOWEST POSITION AND LOCKED WITH CALL LIGHT WITH IN REACH. ALL SAFETY MEASURES IN PLACE WILL ENDORSE TO BALE TIE MACHINE OPERATOR.
--- NOTE | 2020-09-09 19:30 | NUR ---
MS RN OPENING NOTE RECEIVED PATIENT IN BED. A/OX3. CURRENTLY ON ROOM AIR. RESPIRATIONS ARE EVEN AND UNLABORED. NO S/S SOB NOTED. C/O PAIN AT THIS TIME. INFORMED HER SHE JUST RECEIEVED PAIN MEDICATION. PATIENT IS REQUESTING TYLENOL, INFORMED HER WILL GET VITAL SIGNS PRIOR TO GIVING MEDICATION. IV ACCESS IN RAC#18 RUNNING NS@75ML/HR. FIGUEROA CATHETER IS PRESENT, DRAINING TO GRAVITY. BED IS LOW AND LOCKED, HOB ELEVATED IN SEMI CASSIDY, SIDE RIALS UP X3. CALL LIGHT WITHIN REACH. WILL CONTINUE TO MONITOR.
[2020-09-09 20:00] VITALS: BP 108/59
[2020-09-09] MEDS: ACETAMINOPHEN 325 MG TABLET PO PRN (20:16)
--- NOTE | 2020-09-09 20:16 | NUR ---
MS RN NOTE ADMINISTERED PRN TYLENOL 650MG FOR PAIN 01/28. WILL CONTINUE TO MONITOR. PATIENT VITAL SHOW O2 SAT 91% ON ROOM AIR. WILL PLACE 02 2L/MIN VIA NASAL CANNULA. WILL CONTINUE TO MONITOR.
--- NOTE | 2020-09-09 21:21 | NUR ---
MS RN NOTE INFORMED DR. PAL THAT PATIENTS POTASSIUM IS 3.3 AND WAS NOT REPLACED DURING DAY SHIFT. TELEPHONE ORDER 40MEQ PO ONE TIME NOW. ORDER READ BACK NOTED AND CARRIED OUT. WILL CONTINUE TO MONITOR.
[2020-09-09] MEDS ORDERED: POTASSIUM CHLORIDE 20 MEQ TAB.PRT.SR PO ONE (21:45)
[2020-09-10] MEDS: VANCOMYCIN 0.75 GM in IV D5W 250 ML IV SCH ×2 (01:42→14:56)
[2020-09-10] MEDS: LEVOFLOXACIN 500 MG /D5W 100ML 500 MG in PREMIX 1 EA IV SCH (02:53)
[2020-09-10] MEDS: IV NS 0.9% 1,000 ML IV PRN (04:32)
--- NOTE | 2020-09-10 04:59 | NUR ---
ms rn note informed dr. bolanos that patient bp is consistent 90's/ 50s, patient received ns@75ml/hr and bp has not increased. telephone order 500ml bolus of ns. order read back noted and carried out.
[2020-09-10] MEDS ORDERED: IV NS 0.9% 500 ML IV ONE (05:30)
[2020-09-10] MEDS: PANTOPRAZOLE 40 MG TABLET.DR PO SCH (06:55)
[2020-09-10] MEDS: HYDROCODONE/APAP 10/325MG TABLET PO PRN ×3 (06:56→22:00)
--- NOTE | 2020-09-10 07:01 | NUR ---
MS RN NOTE BP NOW 117/71. ADMINISTERED PRN NORCO 10/325 FOR PAIN 10/10 IN BOTH HIPS AND SACRUM. WILL ENDORSE TO NEXT SHIFT TO REASSESS.
--- NOTE | 2020-09-10 07:45 | NUR ---
MS RN CLOSING NOTE PATIENT RESTING IN BED. A/OX3. ON ROOM AIR REFUSING TO BE ON O2 SUPP MULTIPLE TIMES THROUGHOUT SHIFT DESPITE EDUCATING PATIENT. NO RESP DISTRESS NOTED. C/O PAIN BUT UNABLE TO MANAGE TO D/T UNSAFE TO ADMINISTER D/T LOW BP, BOLUS GIVEN, BP INCREASE AND NORCO GIVEN, ENDORSED TO INCOMING RN TO REASSESS. IV ACCESS MAINTAINED IN RAC#18 RUNNING NS@75ML/HR. FIGUEROA CATHETER IS PRESENT, DRAINING TO GRAVITY, OUTPUT 325. PATIENT REFUSED TURNING THROUGHOUT SHIFT, REFUSED AM LABS, REFUSED TO BE CLEANED, REFUSED TO PLACE SPECIALTY MATRESS. BED REMAINS LOW AND LOCKED, HOB ELEVATED IN SEMI CASSIDY, SIDE RIALS UP X3. CALL LIGHT WITHIN REACH. WILL ENDORSE TO NEXT SHIFT
--- NOTE | 2020-09-10 07:54 | NUR ---
RN OPEN NOTES PATIENT IS A/O X 3 WITH NO SIGNS OF ACUTE DISTRESS IN ROOM AIR. NO C/O OF PAIN AT THIS MOMENT. IV R AC #18 G INTACT RUNNING AT 75 ML/HR. FIGUEROA CATHETER INTACT. PER MACHINE BOOKKEEPER NURSE, PATIENT REFUSES TO HAVE THE SPECIALTY MATTRESS AND REFUSED AM LABS, WILL FOLLOW UP WITH PATIENT. SAFETY MEASURES ARE APPLIED, BED IS LOW AND LOCKED POSITION. SIDE RAILS UP X 2 FOR SAFETY. CALL LIGHT WITHIN REACH. WILL CONTINUE TO MONITOR.
[2020-09-10 08:00] VITALS: BP 109/53
[2020-09-10] MEDS: TOPIRAMATE 100 MG TABLET PO SCH ×2 (09:04→17:15)
[2020-09-10] MEDS: GABAPENTIN 400 MG CAPSULE PO SCH ×3 (09:04→17:15)
[2020-09-10] MEDS: DOCUSATE SODIUM 250 MG CAPSULE PO SCH (09:04)
[2020-09-10] MEDS: FOLIC ACID 1 MG TABLET PO SCH (09:04)
[2020-09-10] MEDS: LEVOTHYROXINE SODIUM 125 MCG TABLET PO SCH (09:04)
[2020-09-10] MEDS: ASCORBIC ACID 500 MG TABLET PO SCH (09:06)
[2020-09-10] MEDS: Z GUARD REMEDY 2 OZ OINT TP SCH (09:13)
[2020-09-10 16:00] VITALS: BP 108/54
--- NOTE | 2020-09-10 19:39 | NUR ---
RN CLOSED NOTES PATIENT IS A/O X 3 WITH NO SIGNS OF ACUTE DISTRESS IN ROOM AIR. NO C/O OF PAIN AT THIS MOMENT. IV R AC #18 G INTACT RUNNING AT 75 ML/HR. FIGUEROA CATHETER INTACT. PATIENT REFUSES TO BE REPOSITIONED DRESSING CHANGES AND HAVE THE SPECIAL MATTRESS ON . DR. RAYMUNDO OLSEN AWARE. ALL NEEDS AND TREATMENT AND MEDICATIONS ADMINISTERED ANTICIPATED PER ORDER. SAFETY MEASURES ARE APPLIED, BED IS LOW AND LOCKED POSITION. SIDE RAILS UP X 2 FOR SAFETY. CALL LIGHT WITHIN REACH. WILL ENDORSE TO THE NEXT JUNIOR NET DEVELOPER.
--- NOTE | 2020-09-10 19:40 | NUR ---
MS RN OPENING NOTES RECEIVED PATIENT IN BED, ALERT AND ORIENTED X 3. VERBALLY RESPONSIVE AND ABLE TO FOLLOW DIRECTIONS. BREATHING REGULAR AND UNLABORED ON ROOM AIR. RIGHT AC G18 IV LINE INTACT AND PATENT, INFUSING WELL WITH NO BLEEDING OR S/S OF INFILTRATION NOTED. FIGUEROA CATH INTACT DRAINING HARMAN COLORED URINE WITH MODERATE AMOUNT ON BAG. DENIES SUICIDAL IDEATION AT THIS TIME. COMPLAINED OF LEFT HIP PAIN, NON-PHARMACOLOGICAL INTERVENTIONS PROVIDED. BED LOW AND LOCKED ON SEMI FOWLERS POSITION. CALL LIGHT IN REACH. WILL CONTINUE TO MONITOR.
[2020-09-10 20:00] VITALS: BP 111/57
[2020-09-10 21:22] LABS: CALCIUM, SERUM 8.7 mg/dL (8.5-10.1); CREATININE 0.8 mg/dL (0.6-1.3); POTASSIUM 3.3 mmol/L (3.5-5.1)
--- NOTE | 2020-09-10 22:00 | NUR ---
MS RN NOTES COMPLAINED OF 7/10 BILATERAL HIP PAIN, NORCO 10/325 GIVEN BY MOUTH. NON-PHARMACOLOGICAL INTERVENTIONS PROVIDED. VITAL SIGNS WNL. WILL CONTINUE TO MONITOR.
--- NOTE | 2020-09-10 23:00 | NUR ---
MS RN NOTES PLACED ON [employer] MATTRESS, WOUND CARE PROVIDED.
[2020-09-11] MEDS: VANCOMYCIN 0.75 GM in IV D5W 250 ML IV SCH ×2 (01:11→14:19)
[2020-09-11] MEDS: MORPHINE SULFATE INJ 4 MG/ML DISP.SYRIN IV PRN (01:26)
[2020-09-11] MEDS: LEVOFLOXACIN 500 MG /D5W 100ML 500 MG in PREMIX 1 EA IV SCH (02:20)
[2020-09-11] MEDS: HYDROCODONE/APAP 10/325MG TABLET PO PRN ×2 (04:21→13:46)
[2020-09-11] MEDS: PANTOPRAZOLE 40 MG TABLET.DR PO SCH (06:36)
--- NOTE | 2020-09-11 06:40 | NUR ---
MS RN CLOSING NOTES PATIENT IN BED ALERT AND ORIENTED X 3. AFEBRILE WITH NO S/S OF DISTRESS OBSERVED. RIGHT AC IV LINE INTACT AND INFUSING WELL. NO COMPLAINTS OF PAIN REPORTED AT THIS TIME. BED LOW AND LOCKED ON SEMI FOWLERS POSITION. CALL LIGHT IN REACH. WILL ENDORSE TO MORNING SHIFT FOR SHANIKA.
[2020-09-11 06:48] LABS: BASOPHILS # (AUTO) 0.1 /CMM (0.0-0.2); BASOPHILS % (AUTO) 0.4 % (0.0-2.0); EOSINOPHILS % (AUTO) 2.3 % (0.0-6.0); HEMATOCRIT 25 % (33-45); HEMOGLOBIN 7.8 g/dL (11.5-14.8); LYMPHOCYTES # (AUTO) 1.7 /CMM (0.8-4.8); LYMPHOCYTES % (AUTO) 12.7 % (20.0-44.0); MEAN CORPUSCULAR HGB CONC 32 g/dl (31.0-36.0); MEAN CORPUSCULAR VOLUME 83 fL (82-100); MONOCYTES # (AUTO) 0.8 /CMM (0.1-1.30); MONOCYTES % (AUTO) 5.7 % (2.0-12.0); NEUTROPHILS # (AUTO) 10.7 /CMM (1.8-8.9); NEUTROPHILS % (AUTO) 78.9 % (43.0-81.0); PLATELET COUNT (AUTO) 508 /CMM (150-450); RED BLOOD CELL COUNT(AUTO) 2.97 MIL/uL (4.0-5.2); WHITE BLOOD COUNT (AUTO) 13.5 K/uL (4.3-11.0)
[2020-09-11 07:35] LABS: ALBUMIN 1.7 g/dL (3.4-5.0); BILIRUBIN,TOTAL 0.1 mg/dL (0.2-1.0); CALCIUM, SERUM 8.5 mg/dL (8.5-10.1); CREATININE 0.6 mg/dL (0.6-1.3); PHOSPHORUS 3.2 mg/dL (2.5-4.9); POTASSIUM 3.2 mmol/L (3.5-5.1); TOTAL PROTEIN, SERUM 6.1 g/dL (6.4-8.2)
[2020-09-11 08:00] VITALS: BP 101/51
--- NOTE | 2020-09-11 08:00 | NUR ---
MS RN OPENING NOTES RECEIVED PATIENT IN BED, ALERT AND ORIENTED X 3. VERBALLY RESPONSIVE AND ABLE TO FOLLOW DIRECTIONS. BREATHING REGULAR AND UNLABORED ON ROOM AIR. RIGHT AC G18 IV LINE INTACT AND PATENT, INFUSING WELL WITH NO BLEEDING OR S/S OF INFILTRATION NOTED. FIGUEROA CATH INTACT DRAINING YELLOW HARMAN COLORED URINE WITH MODERATE AMOUNT ON BAG. NO COMPLAINT OF LEFT HIP PAIN, NON-PHARMACOLOGICAL INTERVENTIONS PROVIDED. BED LOW AND LOCKED ON SEMI FOWLERS POSITION. CALL LIGHT IN REACH. WILL CONTINUE TO MONITOR.
[2020-09-11] MEDS: DOCUSATE SODIUM 250 MG CAPSULE PO SCH ×2 (09:00→09:13)
[2020-09-11] MEDS: TOPIRAMATE 100 MG TABLET PO SCH ×2 (09:13→16:52)
[2020-09-11] MEDS: LEVOTHYROXINE SODIUM 125 MCG TABLET PO SCH (09:13)
[2020-09-11] MEDS: GABAPENTIN 400 MG CAPSULE PO SCH ×3 (09:13→16:52)
[2020-09-11] MEDS: ASCORBIC ACID 500 MG TABLET PO SCH (09:13)
[2020-09-11] MEDS: FOLIC ACID 1 MG TABLET PO SCH (09:13)
[2020-09-11] MEDS: Z GUARD REMEDY 2 OZ OINT TP SCH (09:14)
[2020-09-11] MEDS ORDERED: POTASSIUM CHLORIDE 20 MEQ TAB.PRT.SR PO ONE (10:00)
[2020-09-11] MEDS ORDERED: ENOXAPARIN SODIUM 30 MG/0.3 ML DISP.SYRIN SQ SCH (10:30)
[2020-09-11] MEDS: ENOXAPARIN SODIUM 40 MG/0.4 ML DISP.SYRIN SQ SCH (10:52)
[2020-09-11 11:15] LABS: BAND % (MANUAL) 3 % (0.0-5.0); EOSINOPHILS % (MANUAL) 4 % (0-4); LYMPHOCYTES % (MANUAL) 11 % (16-48); METAMYELOCYTES % 1 % (0-0); MONOCYTES % (MANUAL) 8 % (0-11.0); MYELOCYTES % 7 % (0-0); NEUTROPHILS % (MANUAL) 66 (42-76)
--- NOTE | 2020-09-11 14:19 | NUR ---
PT IS NON COMPLAINT WITH GENTLE TURNING AND REPOSITIONING INSPITE OF EXPLAINING THE RISKS AND BENEFITS OF ITS IMPORTANCE WITH SEVERAL ATTEMPTS. REFUSED THOROUGH WOUND ASSESSMENT WITH LIONEL QUIROGA AND DR SANCHEZ-PT INSISTS TO REFUSE.
[2020-09-11] MEDS: CEFTRIAXONE 1 G in IV D5W 50 ML IV SCH (15:50)
[2020-09-11 16:00] VITALS: BP 128/65
--- NOTE | 2020-09-11 17:26 | NUR ---
MS RN CLOSING NOTES PATIENT IN BED ALERT AND ORIENTED X 3. AFEBRILE WITH NO S/S OF DISTRESS OBSERVED. RIGHT AC IV LINE INTACT WITH IVF INFUSING WELL. NO COMPLAINTS OF PAIN REPORTED AT THIS TIME. BED LOW AND LOCKED ON SEMI FOWLERS POSITION. CALL LIGHT WITHIN REACH.
--- NOTE | 2020-09-11 17:44 | NUR ---
PT IS NON COMPLIANT WITH GENTLE TURNING AND REPOSITIONING INSPITE OF EXPLAINING THE RISKS AND BENEFITS OF ITS IMPORTANCE WITH SEVERAL ATTEMPTS. PT SCREAMS "YOU'RE ABUSING ME!!! SEVERAL TIMES WITH A GENTLE LIGHT LIFT. PT INSISTS TO REFUSE.
--- NOTE | 2020-09-11 19:30 | NUR ---
MS RENAY INITIAL NOTES RECEIVED REPORT FROM AM NURSE AND SEEN PT IN BED WATCHING TV AT THIS TIME. NOT IN ANY DISCOMFORT , NOT IN ANY DISTRESS WELL. STILL WITH IVF AT NS AT 75ML/HR ON HER AC PATENT AND INTACT NO REDNESS NOTED. DENIES ANY PAIN . RESPIRATION EVEN AND UNLABORED. FIGUEROA TO GRAVITY , DRESSING DRY AND INTACT. RE-ORIENTED HOW TO USED THE CALL LIGHT SYSTEM AND ENCOURAGE HER TO USED IF SHE NEEDS SOME HELP . KEPT HER WARM AND COMFORTABLE AT ALL TIMES. WILL CONTINUE MONITORING. PLACE CALL LIGHT AT REACH.
[2020-09-11 20:00] VITALS: BP 125/67
[2020-09-11] MEDS: IV NS 0.9% 1,000 ML IV PRN (21:52)
--- NOTE | 2020-09-12 00:29 | NUR ---
ms professor of pathology notes pt sleeping comfortably in bed without any distress or any discomfort noted. breathing even and unlabored, IVF still infusing .kept her warm and comfortable at all times. will continue monitoring. place call light at reach.
[2020-09-12] MEDS: VANCOMYCIN 0.75 GM in IV D5W 250 ML IV SCH ×2 (02:06→13:42)
[2020-09-12] MEDS: HYDROCODONE/APAP 10/325MG TABLET PO PRN (05:35)
[2020-09-12 06:40] LABS: BASOPHILS # (AUTO) 0.1 /CMM (0.0-0.2); BASOPHILS % (AUTO) 0.7 % (0.0-2.0); EOSINOPHILS % (AUTO) 1.6 % (0.0-6.0); HEMATOCRIT 28 % (33-45); HEMOGLOBIN 8.6 g/dL (11.5-14.8); LYMPHOCYTES # (AUTO) 1.7 /CMM (0.8-4.8); LYMPHOCYTES % (AUTO) 12.8 % (20.0-44.0); MEAN CORPUSCULAR HGB CONC 31 g/dl (31.0-36.0); MEAN CORPUSCULAR VOLUME 84 fL (82-100); MONOCYTES # (AUTO) 0.7 /CMM (0.1-1.30); NEUTROPHILS # (AUTO) 10.9 /CMM (1.8-8.9); NEUTROPHILS % (AUTO) 79.9 % (43.0-81.0); PLATELET COUNT (AUTO) 504 /CMM (150-450); RED BLOOD CELL COUNT(AUTO) 3.28 MIL/uL (4.0-5.2); WHITE BLOOD COUNT (AUTO) 13.6 K/uL (4.3-11.0)
[2020-09-12 06:54] LABS: CALCIUM, SERUM 8.7 mg/dL (8.5-10.1); CREATININE 0.6 mg/dL (0.6-1.3); POTASSIUM 3.7 mmol/L (3.5-5.1)
--- NOTE | 2020-09-12 07:01 | NUR ---
ms agent closing notes pt resting after pain meds given before we cleaned the patient. not in any acute distress noted,. Slept well and stable throughout the night. all due meds given and all needs met IVF still infusing on her right AC without any redness noted. kept her warm and comfortable at all times. bed in low and lock in position with side rails x2 up . place call light at reach. will endorse to am nurse for continuity of care.
[2020-09-12 08:00] VITALS: BP 115/61
[2020-09-12 08:30] LABS: BAND % (MANUAL) 2 % (0.0-5.0); EOSINOPHILS % (MANUAL) 1 % (0-4); LYMPHOCYTES % (MANUAL) 17 % (16-48); MONOCYTES % (MANUAL) 7 % (0-11.0); MYELOCYTES % 3 % (0-0); NEUTROPHILS % (MANUAL) 70 (42-76)
[2020-09-12] MEDS: FOLIC ACID 1 MG TABLET PO SCH (09:29)
[2020-09-12] MEDS: PANTOPRAZOLE 40 MG TABLET.DR PO SCH (09:29)
[2020-09-12] MEDS: DOCUSATE SODIUM 250 MG CAPSULE PO SCH (09:29)
[2020-09-12] MEDS: GABAPENTIN 400 MG CAPSULE PO SCH ×3 (09:29→17:15)
[2020-09-12] MEDS: ASCORBIC ACID 500 MG TABLET PO SCH (09:30)
[2020-09-12] MEDS: TOPIRAMATE 100 MG TABLET PO SCH ×2 (09:30→17:16)
[2020-09-12] MEDS: LEVOTHYROXINE SODIUM 125 MCG TABLET PO SCH (09:30)
[2020-09-12] MEDS: Z GUARD REMEDY 2 OZ OINT TP SCH (09:32)
[2020-09-12] MEDS: ACETAMINOPHEN 325 MG TABLET PO PRN (09:40)
--- NOTE | 2020-09-12 10:15 | NUR ---
07:30 Opening Notes: Received report from night nurse. Patient alert, awake and oriented x3. Patient able to make needs known. No s/s of distress or discomfort, no SOB. Patient assisted with breakfast, tolerated well. Patient non compliant, refuses to place HOB elevated when eating, drinking, and taking medications, explained risks, patient still refused. Assisted with ADLs and transfers, kept clean and dry. Bed locked and in lowest position. Fall precautions observed. Patient reminded to use call light. Call light within reach.
[2020-09-12] MEDS: ENOXAPARIN SODIUM 40 MG/0.4 ML DISP.SYRIN SQ SCH (11:00)
[2020-09-12] MEDS: IV NS 0.9% 1,000 ML IV PRN (13:44)
[2020-09-12 16:00] VITALS: BP 122/66
[2020-09-12] MEDS: CEFTRIAXONE 1 G in IV D5W 50 ML IV SCH (16:40)
--- NOTE | 2020-09-12 19:16 | NUR ---
Discharge Note: Patient with orders for discharge. Patient alert, awake and oriented x3. Patient in no s/s of distress or discomfort. Patient refusing treatment and care, non compliant, MD aware. Report given to CHRISTI Vines from [facility] at 18:25. Discharge and medication list explained to patient and RN. Patient unable to sign, co-signed with another RN, Mercy. Patient with IV on right AC 16 g as ordered, intact, no s/s of infection, no edema, no s/s of infiltration, no redness, no c/o pain on site, tolerating well. Beckham in place as ordered, patent, no s/s of infection, clear, yellow, intact. Personal belongings sent with patient, no missing. 19:20 Transportation arrived at the hospital to pecan picker patient, patient skin kept clean and dry, no new injury noted. No changes in LOC, no SOB noted, VS WNL.
== END 2020-09-12 19:30 | DRG 871 ==
LOC: ER 23:42 → MED 09-09 02:37
PROVIDERS: ADMIT Nurse Practitioner Acute Care; ATTEND Nurse Practitioner Acute Care
DX: A41.9 Sepsis, unspecified organism (principal); E43 Unspecified severe protein-calorie malnutrition; N17.0 Acute kidney failure with tubular necrosis; N39.0 Urinary tract infection, site not specified; E87.1 Hypo-osmolality and hyponatremia; D68.69 Other thrombophilia; L97.819 Non-pressure chronic ulcer of other part of right lower leg with unspecified severity; L97.829 Non-pressure chronic ulcer of other part of left lower leg with unspecified severity; L03.116 Cellulitis of left lower limb; L03.115 Cellulitis of right lower limb; I87.313 Chronic venous hypertension (idiopathic) with ulcer of bilateral lower extremity; I50.22 Chronic systolic (congestive) heart failure; M19.90 Unspecified osteoarthritis, unspecified site; J44.9 Chronic obstructive pulmonary disease, unspecified; G40.909 Epilepsy, unspecified, not intractable, without status epilepticus; D63.8 Anemia in other chronic diseases classified elsewhere; E03.9 Hypothyroidism, unspecified; E87.6 Hypokalemia; F41.9 Anxiety disorder, unspecified; F90.9 Attention-deficit hyperactivity disorder, unspecified type; G89.4 Chronic pain syndrome; Z99.3 Dependence on wheelchair; Z96.643 Presence of artificial hip joint, bilateral; Z87.891 Personal history of nicotine dependence; Z88.0 Allergy status to penicillin; M81.0 Age-related osteoporosis without current pathological fracture; R74.01 Elevation of levels of liver transaminase levels; E88.09 Other disorders of plasma-protein metabolism, not elsewhere classified; M62.50 Muscle wasting and atrophy, not elsewhere classified, unspecified site; L89.896 Pressure-induced deep tissue damage of other site; L89.156 Pressure-induced deep tissue damage of sacral region; S71.002A Unspecified open wound, left hip, initial encounter; X58.XXXA Exposure to other specified factors, initial encounter; Y93.9 Activity, unspecified; Y92.129 Unspecified place in nursing home as the place of occurrence of the external cause; L85.3 Xerosis cutis; M21.171 Varus deformity, not elsewhere classified, right ankle; B96.4 Proteus (mirabilis) (morganii) as the cause of diseases classified elsewhere; B95.2 Enterococcus as the cause of diseases classified elsewhere; A49.02 Methicillin resistant Staphylococcus aureus infection, unspecified site; Z74.01 Bed confinement status; I11.0 Hypertensive heart disease with heart failure
CPT/HCPCS: 36415; 71045-TC; 80048-TC; 80053-TC; 80061-TC; 80076-TC; 80202-TC; 81000-TC; 82728-TC; 83540-TC; 83605-TC; 83735-TC; 83880; 84100-TC; 84155; 84165; 84439-TC; 84443-TC; 84484-TC; 85025-TC; 85730-TC; 87040-TC; 87070-TC; 87081-TC; 87086-TC; 87186-TC; 93307-TC; A4216; A6253; A6403; A6407; C9803; G0378; J0696; J1650; J1956; J2060; J2270; J3370; J7030; J7040; J7060

== ENCOUNTER 2020-10-30 11:15 | Inpatient (IN) | payer MEDICARE, OTHER ==
[~2020-10-30] VITALS: Ht 165.1 cm; Wt 71.7 kg
[~2020-10-30 11:15] MED LIST changes: -ACET325T53 PO; -ALBU2.5V13 NEB; -ALLA266C2 TP; +ASCO-310 PO; -ASCO-352 PO; -CEFT1FRO2 IV; -CHOL200026 PO; -CLOT15CR5 TP; -D AM PO; +DOCU-141 PO; -DOCU100C36 PO; +FOLI0.4T2 PO; -GABA-532 PO; -HYDR-3972 PO; -HYDR2DIS IV; -IPRA0.2S9 NEB; -LEVO100T9 PO; +LEVO125T8 PO; -LORA-259 PO; -MAG30ORA PO; -MAGN400O6 PO; -MULT-659 PO; -ONDA4VIA23 IVP; +PANT20TA2 PO; -RISP1TAB7 PO; -RXVAN XX; -SERT50TA PO; -TEMA15CA PO; -VITA56.7 TP
[2020-10-30] MEDS ORDERED: IV NS 0.9% 1,000 ML BAG IV ONE (11:30)
--- NOTE | 2020-10-30 13:40 | NUR ---
PT BIBPA FROM SNF FOR ABNORMAL LABS, HGB 6.9, WBC 18, FEVER OF 100.5. PT AAOX2, RESPIRATIONS EVEN AND UNLABORED W/ NAD NOTED. PT CONNECTED TO THE LOW ALTITUDE AIR DEFENSE GUNNER AND POX.
--- NOTE | 2020-10-30 13:51 | NUR ---
BLOOD COLLECTED AND SENT TO LAB
--- NOTE | 2020-10-30 13:53 | NUR ---
EKG AT BEDSIDE
--- NOTE | 2020-10-30 14:03 | NUR ---
URINE COLLECTED AND SENT TO LAB
[2020-10-30 14:10] LABS: HEMOGLOBIN 7.9 g/dL (11.5-14.8)
[2020-10-30 14:13] LABS: BASOPHILS % (AUTO) 0.2 % (0.0-2.0); EOSINOPHILS % (AUTO) 0.2 % (0.0-6.0); HEMATOCRIT 26 % (33-45); LYMPHOCYTES # (AUTO) 0.4 /CMM (0.8-4.8); LYMPHOCYTES % (AUTO) 2.3 % (20.0-44.0); MEAN CORPUSCULAR HGB CONC 31 g/dl (31.0-36.0); MEAN CORPUSCULAR VOLUME 83 fL (82-100); MONOCYTES # (AUTO) 0.6 /CMM (0.1-1.30); MONOCYTES % (AUTO) 3.3 % (2.0-12.0); NEUTROPHILS # (AUTO) 17.9 /CMM (1.8-8.9); PLATELET COUNT (AUTO) 514 /CMM (150-450); RED BLOOD CELL COUNT(AUTO) 3.07 MIL/uL (4.0-5.2); WHITE BLOOD COUNT (AUTO) 19.1 K/uL (4.3-11.0)
[2020-10-30 14:17] LABS: CALCIUM, SERUM 8.7 mg/dL (8.5-10.1); CARBON DIOXIDE 21 mmol/L (21-32); CHLORIDE 103 mmol/L (98-107); CREATININE 1.3 mg/dL (0.6-1.3); GLUCOSE 104 mg/dL (74-106); POTASSIUM 3.7 mmol/L (3.5-5.1); SODIUM SERUM 137 mmol/L (136-145); UREA NITROGEN, BLOOD 43 mg/dL (7-18)
[2020-10-30 14:24] LABS: ALANINE AMINOTRANSFERASE 31 U/L (12-78); ALBUMIN 1.8 g/dL (3.4-5.0); ALKALINE PHOSPHATASE 138 U/L (46-116); ASPARTATE AMINOTRANSFERASE 21 U/L (15-37); BILIRUBIN,DIRECT 0.1 mg/dL (0.0-0.2); BILIRUBIN,TOTAL 0.2 mg/dL (0.2-1.0); TOTAL PROTEIN, SERUM 6.9 g/dL (6.4-8.2)
--- NOTE | 2020-10-30 14:46 | NUR ---
COVID SWABS SENT TO LAB
--- NOTE | 2020-10-30 14:54 | NUR ---
[facility] CALLED, DEBURRER MACHINE PAGED.
[2020-10-30] MEDS ORDERED: LEVOFLOXACIN 750 MG /D5W 150ML 150 ML IV ONE ×2 (15:00→15:25)
[2020-10-30] MEDS ORDERED: HYDR-4384 PO ×2 (16:59)
[2020-10-30] MEDS ORDERED: MAGN400O6 PO (16:59)
[2020-10-30] MEDS ORDERED: ACET325T53 PO (16:59)
[2020-10-30] MEDS ORDERED: AMIN887L PO (16:59)
[2020-10-30] MEDS ORDERED: SENN-175 PO (16:59)
[2020-10-30] MEDS ORDERED: ARGI1POW13 PO (16:59)
[2020-10-30 17:02] LABS: BILIRUBIN,URINE NEGATIVE (NEGATIVE); BLOOD, URINE LARGE Ery/uL (NEGATIVE); COLOR,URINE YELLOW (YELLOW); LEUKOCYTE ESTERASE ,URINE NEGATIVE (NEGATIVE); NITRITE, URINE NEGATIVE (NEGATIVE); PH,URINE 5.5 (5.0-8.0); PROTEIN,URINE TRACE mg/dl (NEGATIVE); UGLUCOSE NEGATIVE (NEGATIVE); UROBILINOGEN,URINE 0.2 EU/dL (0.2)
[2020-10-30 17:13] LABS: BACTERIA,URINE 1+ /HPF (None Seen); RBC,URINE 21-50 /HPF (0-2); SQUAMOUS EPITHELIAL CELL,UR 0-2 /HPF (None Seen); URIC ACID CRYSTALS,URINE Many /HPF (None Seen)
[2020-10-30 17:45] LABS: BAND % (MANUAL) 1 % (0.0-5.0); LYMPHOCYTES % (MANUAL) 3 % (16-48); MONOCYTES % (MANUAL) 5 % (0-11.0); NEUTROPHILS % (MANUAL) 91 (42-76)
--- NOTE | 2020-10-30 19:56 | NUR ---
REPORT GIVEN TO CHRISTI TELLO FOR SHANIKA
[2020-10-30 20:00] VITALS: BP 101/54
[2020-10-30] MEDS ORDERED: ONDANSETRON HCL/PF 4 MG/2 ML VIAL IVP PRN (21:30)
[2020-10-30] MEDS ORDERED: CEFEPIME 1 GM in IV D5W 50 ML IV SCH (21:30)
[2020-10-30] MEDS ORDERED: Z GUARD REMEDY 2 OZ OINT TP PRN (21:30)
[2020-10-30] MEDS ORDERED: VANCOMYCIN 1.25 GM in IV D5W 250 ML IV ONE (22:00)
[2020-10-30] MEDS: ENOXAPARIN SODIUM 40 MG/0.4 ML DISP.SYRIN SQ SCH (23:34)
[2020-10-30] MEDS ORDERED: VANCOMYCIN 1 GM VIAL ONE (23:43)
[2020-10-31] VITALS: BP 101/43
[2020-10-31 00:23] VITALS: BP 109/53
[2020-10-31] MEDS ORDERED: CEFEPIME 1 GM VIAL ONE (00:54)
[2020-10-31] MEDS ORDERED: VANCOMYCIN 500 MG VIAL ONE (00:56)
[2020-10-31 04:00] VITALS: BP 91/44
--- NOTE | 2020-10-31 05:35 | NUR ---
RN notes Admitted a 75 year old female from ER with diagnosis of Covid 19/PNA via stretcher accompanied by two EMT staff. No distress noted. Breathing even and unlabored. On 3lpm O2 via nasal cannula tolerating well. Alert and oriented x 4 verbally able to communicate needs. Non-Ambulatory, incontinent of bowel and bladder function. Anxious, afraid and suspicious. Skin assessment done. Noted with multiple non healing wounds in the lower extremities and large full thickness loss in the sacrum and left and right buttocks. Complained of generalized pain. Holiday given with relief. Kept clean and dry. Will endorse to next shift for continuity of care.
[2020-10-31 05:37] LABS: BASOPHILS % (AUTO) 0.2 % (0.0-2.0); EOSINOPHILS % (AUTO) 0.4 % (0.0-6.0); HEMATOCRIT 23 % (33-45); LYMPHOCYTES # (AUTO) 0.9 /CMM (0.8-4.8); LYMPHOCYTES % (AUTO) 4.3 % (20.0-44.0); MEAN CORPUSCULAR HGB CONC 31 g/dl (31.0-36.0); MEAN CORPUSCULAR VOLUME 82 fL (82-100); MONOCYTES # (AUTO) 0.9 /CMM (0.1-1.30); MONOCYTES % (AUTO) 4.4 % (2.0-12.0); NEUTROPHILS # (AUTO) 18.5 /CMM (1.8-8.9); NEUTROPHILS % (AUTO) 90.7 % (43.0-81.0); PLATELET COUNT (AUTO) 471 /CMM (150-450); RED BLOOD CELL COUNT(AUTO) 2.77 MIL/uL (4.0-5.2); WHITE BLOOD COUNT (AUTO) 20.4 K/uL (4.3-11.0)
[2020-10-31 06:14] LABS: ALANINE AMINOTRANSFERASE 26 U/L (12-78); ALBUMIN 1.6 g/dL (3.4-5.0); ALKALINE PHOSPHATASE 115 U/L (46-116); ASPARTATE AMINOTRANSFERASE 16 U/L (15-37); BILIRUBIN,TOTAL 0.3 mg/dL (0.2-1.0); CALCIUM, SERUM 8.1 mg/dL (8.5-10.1); CARBON DIOXIDE 18 mmol/L (21-32); CHLORIDE 103 mmol/L (98-107); CREATININE 1.1 mg/dL (0.6-1.3); GLUCOSE 100 mg/dL (74-106); MAGNESIUM 2.2 mg/dL (1.8-2.4); PHOSPHORUS 4.3 mg/dL (2.5-4.9); POTASSIUM 3.6 mmol/L (3.5-5.1); SODIUM SERUM 136 mmol/L (136-145); TOTAL PROTEIN, SERUM 6.2 g/dL (6.4-8.2); UREA NITROGEN, BLOOD 40 mg/dL (7-18)
[2020-10-31 06:24] LABS: CHOLESTEROL 101 mg/dL (<200); HDL CHOLESTEROL 10 mg/dL (40-60); LDL 47 mg/dL (0-99); THYROID STIMULATING HORMONE 1.444 uIU/mL (0.358-3.74); TRIGLYCERIDES 240 mg/dL (30-150)
[2020-10-31 08:00] VITALS: BP 97/52
--- NOTE | 2020-10-31 08:00 | NUR ---
tele laborer sawmill: notes received pt in bed awake, a/ox3. hob elevated. on o2 at 3l/min via n/c. afebrile. will continue to monitor.
[2020-10-31 09:15] LABS: BAND % (MANUAL) 2 % (0.0-5.0); LYMPHOCYTES % (MANUAL) 4 % (16-48); MONOCYTES % (MANUAL) 3 % (0-11.0); NEUTROPHILS % (MANUAL) 91 (42-76)
--- NOTE | 2020-10-31 10:00 | NUR ---
tele associate professor of literacy: notes pt refused am care, repositioned, and wound care treatments despite teachings provided. instructed to call for assistance. will continue to monitor.
--- NOTE | 2020-10-31 10:04 | NUR ---
WOUND CARE CONSULT: REVIEWED CHART, NURSING DOCUMENTATION AND PHOTOS WHICH INDICATE MULTIPLE WOUNDS, PRESENT ON ADMISSION INCLUDING LOWER EXTREMITIES WELL SACRUM AND BUTTOCKS. RECOMMEND SURGICAL AND DPM CONSULTS. DR MATA AND DR JUAREZ NOTIFIED OF CONSULT REQUESTS. PT IS ON [place] [employer] LOW AIRLOSS BED. DISCUSSED SKIN PROTECTION WITH NURSING STAFF. MD IN AGREEMENT WITH PLAN OF CARE.
[2020-10-31] MEDS: GABAPENTIN 400 MG CAPSULE PO SCH ×3 (10:14→17:00)
[2020-10-31] MEDS: LEVOTHYROXINE SODIUM 125 MCG TABLET PO SCH (10:14)
[2020-10-31] MEDS: TOPIRAMATE 100 MG TABLET PO SCH ×2 (10:14→17:00)
[2020-10-31] MEDS: HYDROCODONE/APAP 5/325MG TABLET PO PRN ×3 (10:18→23:37)
--- NOTE | 2020-10-31 10:18 | NUR ---
tele folding machine setter: notes c/o unable to scale generalized discomfort, medicated with norco 1 tab po as ordered. will continue to monitor.
--- NOTE | 2020-10-31 11:18 | NUR ---
tele pants busheler: notes pt in bed with eyes close, no s/s of discomfort. no apparent distress noted. will continue to monitor.
[2020-10-31 12:00] VITALS: BP 90/42
[2020-10-31] MEDS: CEFEPIME 2 GM in IV D5W 100 ML IV SCH ×2 (12:11→23:37)
[2020-10-31] MEDS: VANCOMYCIN 0.75 GM in IV D5W 250 ML IV SCH (13:32)
--- NOTE | 2020-10-31 14:17 | NUR ---
tele piping engineer: dpm consult received new treatment orders from dr. obando. orders acknowledged.
--- NOTE | 2020-10-31 14:21 | NUR ---
tele wafer polishing worker: notes c/o unable to scale generalized discomfort, medicated with norco 1 tab po as ordered. will continue to monitor.
--- NOTE | 2020-10-31 14:25 | NUR ---
tele senior clinical data manager: notes pt still refuses wound treatment to be done despite encouragement from staff and education.
--- NOTE | 2020-10-31 15:21 | NUR ---
tele bilingual speech language pathologist: notes pt in bed with eyes close, no s/s of discomfort. no apparent distress noted. will continue to monitor.
[2020-10-31] MEDS: IV NS 0.9% 1,000 ML IV PRN (15:40)
--- NOTE | 2020-10-31 16:00 | NUR ---
tele aerial erector: notes incontinent of bowel rendered. sacral and buttocks dressings soiled. wound care rendered. kept clean and dry. turned and repositioned. will continue to monitor.
--- NOTE | 2020-10-31 16:43 | NUR ---
Patient resides at [facility] [phone], she requires general surgery physician assistant with adl's. COVID -19 test x2 negative. Current plan is to dc back to SNF Addendum: 10/31/20 at 1643 by LINETTE PEREZ RN Amended: Links added.
[2020-10-31] MEDS: DAKINS QUARTER STRENGTH (0.125%) 480 ML BOTTLE TOP SCH (17:30)
[2020-10-31] MEDS: HYDROGEL DRESSING 90 GM TUBE TP SCH (17:30)
--- NOTE | 2020-10-31 17:30 | NUR ---
tele business programmer: notes new wound tx received per plastic surgeon, but pt refused. instructed to call fro assistance. will continue to monitor.
--- NOTE | 2020-10-31 18:33 | NUR ---
tele orderly: notes in bed with eyes close, no s/s of discomfort. needs attended. will continue to monitor.
[2020-10-31] MEDS: ACETAMINOPHEN 325 MG TABLET PO PRN (18:59)
--- NOTE | 2020-10-31 19:20 | NUR ---
tele sewing machine attachment tester: notes report given to yun cruz) for continuity of care.
[2020-10-31 20:00] VITALS: BP 109/53
[2020-10-31] MEDS: ENOXAPARIN SODIUM 40 MG/0.4 ML DISP.SYRIN SQ SCH (20:20)
[2020-11-01 00:23] VITALS: BP 101/54
[2020-11-01] MEDS: VANCOMYCIN 0.75 GM in IV D5W 250 ML IV SCH ×2 (02:35→13:00)
[2020-11-01] MEDS: ACETAMINOPHEN 325 MG TABLET PO PRN ×2 (04:33→13:53)
[2020-11-01] MEDS: IV NS 0.9% 1,000 ML IV PRN (06:35)
[2020-11-01 08:00] VITALS: BP 100/47
--- NOTE | 2020-11-01 08:00 | NUR ---
RECREATION OFFICER AM NOTES Received pt in bed awake, a/ox3. hob elevated. on o2 at 3l/min via n/c. afebrile. ON DROPLET PRECAUTIONS DUE TO COVID PCR +. TURNED EVERY TWO HRS. WITH ONGOING IVF NS AT 75 ML/HR INFUSING WELL. will continue to monitor.CALL LIGHT PLACED WITHIN REACH.
[2020-11-01 08:36] LABS: CALCIUM, SERUM 7.9 mg/dL (8.5-10.1)
[2020-11-01] MEDS: HYDROCODONE/APAP 5/325MG TABLET PO PRN ×2 (10:34→20:59)
[2020-11-01] MEDS: LEVOTHYROXINE SODIUM 125 MCG TABLET PO SCH (10:35)
[2020-11-01] MEDS: TOPIRAMATE 100 MG TABLET PO SCH ×2 (10:35→18:44)
[2020-11-01] MEDS: GABAPENTIN 400 MG CAPSULE PO SCH ×3 (10:35→18:44)
[2020-11-01] MEDS: DAKINS QUARTER STRENGTH (0.125%) 480 ML BOTTLE TOP SCH (10:46)
[2020-11-01] MEDS: HYDROGEL DRESSING 90 GM TUBE TP SCH (10:46)
[2020-11-01] MEDS: POTASSIUM CHLORIDE 20 MEQ POWDER PACKET PO SCH ×3 (11:11→14:55)
[2020-11-01 12:46] LABS: FERRITIN 869 ng/mL (8-388)
[2020-11-01] MEDS: CEFEPIME 2 GM in IV D5W 100 ML IV SCH (13:11)
[2020-11-01 13:15] LABS: IRON, SERUM 9 ug/dl (50-175); TOTAL IRON BINDING CAPACITY 100 ug/dl (250-450)
--- NOTE | 2020-11-01 13:21 | NUR ---
VANCO IV HELD -[facility] TROUGH 27.NOTIFIED PHARMACIST.
--- NOTE | 2020-11-01 19:15 | NUR ---
RN NOTES RECEIVED PT IN BED RESTING COMFORTABLY, IN NO SIGN OF RESPIRATORY DISTRESS. ON 3L O2 VIA NC; TOLERATING WELL. IV SITE PATENT AND FLUSHING WELL. WITH ONGOING IVF ORDERED. SAFETY MEASURES HAVE BEEN PROVIDED AND IMPLEMENTED. PATIENT BED ALARM IS ON. HEAD OF BED ELEVATED. BED IS LOCKED, IN LOWEST POSITION AND SIDE RAILS UP. CALL LIGHT WITHIN REACH OF THE PATIENT. APPLICABLE ISOLATION PRECAUTIONS IN PLACE. WILL CONTINUE TO MONITOR AND REASSESS FOR ANY CHANGES AND WILL CARRY OUT ANY ONGOING AND ACTIVE MD ORDER.
[2020-11-01 20:00] VITALS: BP 103/52
[2020-11-01] MEDS: MEROPENEM 500 MG in IV NS 0.9% 50 ML IV SCH (20:49)
[2020-11-01] MEDS: ENOXAPARIN SODIUM 40 MG/0.4 ML DISP.SYRIN SQ SCH (20:50)
--- NOTE | 2020-11-01 23:30 | NUR ---
RN NOTES RECEIVED CALL FROM LAB, SPOKE WITH COURT, HE PROVIDED + BLOOD CULTURE RESULT: GRAM NEGATIVE BACILLI. WILL INFORM TYLOR BEAVERS AND WILL SECURE FOR ANY ORDERS. VICE PRESIDENT CONSULTING SERVICES MADE AWARE.
[2020-11-02] VITALS: BP 103/46
--- NOTE | 2020-11-02 | NUR ---
RN NOTES COMMUNICATED WITH TYLOR BEAVERS REGARDING POSITIVE BLOOD CULTURE GRAM NEGATIVE BACILLI. NO ORDERS GIVEN AT THIS TIME. MUD ANALYSIS SUPERVISOR MADE AWARE.
[2020-11-02] MEDS ORDERED: VANCOMYCIN 0.75 GM in IV D5W 250 ML IV SCH ×2 (01:00→03:00)
[2020-11-02 01:42] LABS: ALBUMIN 1.6 g/dL (3.4-5.0); BILIRUBIN,TOTAL 0.2 mg/dL (0.2-1.0); CALCIUM, SERUM 7.8 mg/dL (8.5-10.1); CREATININE 0.9 mg/dL (0.6-1.3); PHOSPHORUS 2.3 mg/dL (2.5-4.9)
--- NOTE | 2020-11-02 02:31 | NUR ---
RN NOTES CALLED PHARMACY S/P ELO[facility] REGARDING TROUGH LEVEL @21, VERIFIED IF NEXT DOSE SHOULD BE GIVEN SCHEDULED, DELAYED DUE TO RESULT. SHE SAID ADMINISTER BY 3AM. MICROSOFT EXCHANGE ADMINISTRATOR MADE AWARE.
[2020-11-02 04:00] VITALS: BP 92/47
--- NOTE | 2020-11-02 04:00 | NUR ---
RN NOTES ENDORSED REPORT TO CHRISTI SMALLWOOD FOR SHANIKA. ALL DUE MEDS PRIOR TO TIME OF ENDORSEMENT GIVEN FUND MANAGER MADE AWARE.
[2020-11-02] MEDS: HYDROCODONE/APAP 5/325MG TABLET PO PRN ×2 (05:17→13:45)
--- NOTE | 2020-11-02 06:57 | NUR ---
RN notes Awake, comfortably resting in bed with no distress noted. Breathing even and unlabored. Alert and oriented. Verbally able to communicate needs. Vital signs wnl. Complained of bilateral lower extremities, norco given with relief. Kept clean and dry. Will endorse to next shift for continuity of care.
--- NOTE | 2020-11-02 07:30 | NUR ---
RN OPENING NOTE PATIENT CURRENTLY IN BED SLEEPING, EASY TO WAKEN. ALERT/ORIENTED X3, ABLE TO MAKE NEEDS KNOWN. PATIENT CURRENTLY ON 2L OXYGEN THERAPY WITH NC. OXYGEN SATURATION 94%, NO S/S OF DISTRESS AT THIS TIME, NO PAIN REPORTED. TELE MONITOR READING SHOWS SINUS RHYTHM. R WRIST 22 G, INTACT AND PATENT, NO S/S OF INFECTION AT THIS TIME. ALL SAFETY MEASURES IN PLACE PER HOSPITAL POLICY. BED LOCKED IN LOWEST POSITION, CALL LIGHT WITHIN REACH. WILL CONTINUE TO MONITOR AND PROVIDE CARE.
[2020-11-02 08:00] VITALS: BP 104/49
[2020-11-02] MEDS: TOPIRAMATE 100 MG TABLET PO SCH ×2 (08:41→16:10)
[2020-11-02] MEDS: LEVOTHYROXINE SODIUM 125 MCG TABLET PO SCH (08:41)
[2020-11-02] MEDS: MEROPENEM 500 MG in IV NS 0.9% 50 ML IV SCH ×2 (08:41→21:54)
[2020-11-02] MEDS: GABAPENTIN 400 MG CAPSULE PO SCH ×3 (08:41→16:10)
[2020-11-02] MEDS: DAKINS QUARTER STRENGTH (0.125%) 480 ML BOTTLE TOP SCH (08:54)
[2020-11-02] MEDS: HYDROGEL DRESSING 90 GM TUBE TP SCH (08:55)
[2020-11-02] MEDS: IV NS 0.9% 1,000 ML IV PRN (14:06)
[2020-11-02] MEDS: SOD FERRIC GLUC 125 MG in IV NS 0.9% 100 ML IV SCH (14:47)
[2020-11-02 16:00] VITALS: BP 87/60
[2020-11-02] MEDS ORDERED: NEUTRA PHOS 1 POWD.PACKET PO ONE (16:00)
[2020-11-02] MEDS: ACETAMINOPHEN 325 MG TABLET PO PRN (16:10)
--- NOTE | 2020-11-02 16:20 | NUR ---
IV LINE PATIENT ACCIDENTALLY PULLED IV LINE OUT. ATTEMPTED TO START NEW IV LINE HOWEVER WAS UNSUCCESSFUL. MD NOTIFIED AND RECEIVED ORDER FOR MIDLINE
--- NOTE | 2020-11-02 18:45 | NUR ---
COVID SWAB DONE AND GIVEN TO LAB.
--- NOTE | 2020-11-02 18:55 | NUR ---
RN CLOSING NOTE PATIENT CURRENTLY IN BED RESTING. ALERT/ORIENTED X3, ABLE TO MAKE NEEDS KNOWN. PATIENT CURRENTLY ON 2L OXYGEN THERAPY WITH NC. OXYGEN SATURATION 96%, NO S/S OF DISTRESS AT THIS TIME, NO PAIN REPORTED. TELE MONITOR READING SHOWS SINUS RHYTHM. ALL SAFETY MEASURES IN PLACE PER HOSPITAL POLICY. BED LOCKED IN LOWEST POSITION, CALL LIGHT WITHIN REACH. WILL CONTINUE TO MONITOR AND PROVIDE CARE.
[2020-11-02] MEDS: IPRATROPIUM NEB FS 0.5 MG/2.5 ML AMPUL.NEB NEB SCH (19:30)
[2020-11-02] MEDS: ALBUTEROL FS 2.5 MG/0.5 ML VIAL.NEB NEB SCH (19:30)
--- NOTE | 2020-11-02 19:45 | NUR ---
RN OPENING NOTE RECEIVED PATIENT IN BED RESTING ALERT ORIENTED X2-3 NO SOB NOT ACUTE DISTRESS NOTED O2:98% SHE IS ON 2L/OXYGEN VIA NASAL CANNULA, COVID POSITIVE MONITORING FOR CONTACT/DROPLET ISOLATION,NO IV SITE SHE PULLED OUT HER IV LINE,SHE HAS ORDER FOR MIDLINE,KEEP CALL LIGHT WITHIN REACH,BED IS IN LOW POSITION AND LOCKED,BED ALARM IS ON,CONTINUE TO MONITOR,
--- NOTE | 2020-11-02 21:45 | NUR ---
RN NOTE STARTED A NEW LINE ON RIGHT UPPER ARM MID LINE #20 INTACT PATENT CONTINUE TO MONITOR.
[2020-11-02] MEDS: ENOXAPARIN SODIUM 40 MG/0.4 ML DISP.SYRIN SQ SCH (22:01)
[2020-11-03] VITALS: BP 112/60
[2020-11-03] MEDS: ALBUTEROL FS 2.5 MG/0.5 ML VIAL.NEB NEB SCH ×4 (01:30→19:30)
[2020-11-03] MEDS: IPRATROPIUM NEB FS 0.5 MG/2.5 ML AMPUL.NEB NEB SCH ×4 (01:30→19:30)
--- NOTE | 2020-11-03 06:55 | NUR ---
RN CLOSING NOTE PATIENT REMAINS ALERT ORIENTED X2-3 VERBALLY RESPONSIVE,ON 2L OXYGEN VIA NASAL CANNULA,O2:97% IV SITE IS ON RIGHT UPPER ARM MIDLINE INTACT,PATENT FLUSHED,ON FIGUEROA CATHETER URINE DRAINING BY GRAVITY YELLOW AND CLEAR,ALL DUE MEDS GIVEN MD ORDERED,KEPT CLEAN AND DRY ALL THE TIME,KEPT COMFORTABLE,ALL NEEDS MET,ENDORSE NEXT COMING SHIFT FOR CONTINUATION OF CARE
[2020-11-03 07:29] LABS: BASOPHILS # (AUTO) 0.1 /CMM (0.0-0.2); BASOPHILS % (AUTO) 0.4 % (0.0-2.0); EOSINOPHILS % (AUTO) 0.9 % (0.0-6.0); HEMATOCRIT 21 % (33-45); LYMPHOCYTES # (AUTO) 1.1 /CMM (0.8-4.8); LYMPHOCYTES % (AUTO) 7.2 % (20.0-44.0); MEAN CORPUSCULAR HGB CONC 31 g/dl (31.0-36.0); MEAN CORPUSCULAR VOLUME 82 fL (82-100); MONOCYTES # (AUTO) 0.8 /CMM (0.1-1.30); MONOCYTES % (AUTO) 5.3 % (2.0-12.0); NEUTROPHILS # (AUTO) 13.3 /CMM (1.8-8.9); NEUTROPHILS % (AUTO) 86.2 % (43.0-81.0); PLATELET COUNT (AUTO) 454 /CMM (150-450); RED BLOOD CELL COUNT(AUTO) 2.53 MIL/uL (4.0-5.2); WHITE BLOOD COUNT (AUTO) 15.4 K/uL (4.3-11.0)
--- NOTE | 2020-11-03 07:30 | NUR ---
RN OPENING NOTE PATIENT CURRENTLY IN BED SLEEPING, EASY TO WAKEN. ALERT/ORIENTED X3, ABLE TO MAKE NEEDS KNOWN. PATIENT CURRENTLY ON 2L OXYGEN THERAPY WITH NC. OXYGEN SATURATION 94%, NO S/S OF DISTRESS AT THIS TIME, NO PAIN REPORTED. TELE MONITOR READING SHOWS SINUS RHYTHM. R UA MIDLINE IV, INTACT AND PATENT, NO S/S OF INFECTION AT THIS TIME. ALL SAFETY MEASURES IN PLACE PER HOSPITAL POLICY. BED LOCKED IN LOWEST POSITION, CALL LIGHT WITHIN REACH. WILL CONTINUE TO MONITOR AND PROVIDE CARE.
[2020-11-03 08:00] VITALS: BP 108/57
[2020-11-03 08:09] LABS: CREATININE 0.9 mg/dL (0.6-1.3); PHOSPHORUS 2.2 mg/dL (2.5-4.9); POTASSIUM 3.9 mmol/L (3.5-5.1)
[2020-11-03 08:11] LABS: HEMOGLOBIN 6.4 g/dL (11.5-14.8)
[2020-11-03] MEDS ORDERED: VANCOMYCIN 1 GM in IV D5W 250 ML IV SCH (09:00)
[2020-11-03] MEDS: LEVOTHYROXINE SODIUM 125 MCG TABLET PO SCH (09:13)
[2020-11-03] MEDS: DAKINS QUARTER STRENGTH (0.125%) 480 ML BOTTLE TOP SCH (09:14)
[2020-11-03] MEDS: HYDROGEL DRESSING 90 GM TUBE TP SCH (09:14)
[2020-11-03] MEDS: MEROPENEM 500 MG in IV NS 0.9% 50 ML IV SCH ×2 (09:14→20:52)
[2020-11-03] MEDS: TOPIRAMATE 100 MG TABLET PO SCH ×2 (09:14→18:11)
[2020-11-03] MEDS: GABAPENTIN 400 MG CAPSULE PO SCH ×3 (09:14→18:11)
[2020-11-03 09:28] LABS: LYMPHOCYTES % (MANUAL) 6 % (16-48); MONOCYTES % (MANUAL) 2 % (0-11.0); NEUTROPHILS % (MANUAL) 92 (42-76)
[2020-11-03] MEDS ORDERED: NEUTRA PHOS 1 POWD.PACKET PO ONE (12:30)
[2020-11-03] MEDS: VANCOMYCIN 1 GM in IV D5W 250 ML IV SCH (13:31)
[2020-11-03] MEDS: SOD FERRIC GLUC 125 MG in IV NS 0.9% 100 ML IV SCH (14:50)
[2020-11-03 16:00] VITALS: BP 107/51
[2020-11-03 18:43] VITALS: BP 107/51
--- NOTE | 2020-11-03 18:51 | NUR ---
RN CLOSING NOTE PATIENT CURRENTLY IN BED SLEEPING, EASY TO WAKEN. ALERT/ORIENTED X3, ABLE TO MAKE NEEDS KNOWN. PATIENT CURRENTLY ON 2L OXYGEN THERAPY WITH NC. OXYGEN SATURATION 97%, NO S/S OF DISTRESS AT THIS TIME, NO PAIN REPORTED. TELE MONITOR READING SHOWS SINUS RHYTHM. R UA MIDLINE IV, INTACT AND PATENT, NO S/S OF INFECTION AT THIS TIME. ALL SAFETY MEASURES IN PLACE PER HOSPITAL POLICY. BED LOCKED IN LOWEST POSITION, CALL LIGHT WITHIN REACH. WILL CONTINUE TO MONITOR AND PROVIDE CARE.
--- NOTE | 2020-11-03 19:50 | NUR ---
RN OPENING NOTE RECEIVED PATIENT IN BED RESTING ALERT ORIENTED X2-3 NO SOB NOT ACUTE DISTRESS NOTED O2:98% SHE IS ON 2L/OXYGEN VIA NASAL CANNULA, IV SITE IS ON RIGHT UPPER ARM MIDLINE NO SOB NOT ACUTE DISTRESS NOTED,ON FIGUEROA CATHETER URINE DRAINING YELLOW/CLEAR BY GRAVITY,LEFT SIDE CONTRACTED UPPER EXTREMITY AND LEFT LOWER EXTREMITY,BED IN LOW POSITION AND LOCKED, SAFETY MEASURE IMPLEMENT CONTINUE TO MONITOR
--- NOTE | 2020-11-03 20:22 | NUR ---
RT neb tx not given. waiting for pending lab results
[2020-11-03] MEDS: ENOXAPARIN SODIUM 40 MG/0.4 ML DISP.SYRIN SQ SCH (21:00)
--- NOTE | 2020-11-03 21:00 | NUR ---
RN NOTE LOVENOX NOT ADMINISTERED DUE TO HEMOGLOBIN IS 6.4 CONTINUE TO MONITOR.
[2020-11-03] MEDS: IV NS 0.9% 1,000 ML IV PRN (21:04)
--- NOTE | 2020-11-03 22:20 | NUR ---
MS RN NOTE DANIEL ELECTROSTATIC POWDER COATING TECHNICIAN CALLED REGARDING COVID PCR RESULT IS NEGATIVE. NURSING SERVICE UNIT OPERATOR OIL WELL INFORMED. ALSO INFORMED BIT GATHERER NATANAEL BRAMBILA. PER BIT GATHERER PLEASE WAIT FOR ID OR PULM TO DC.
[2020-11-04] VITALS (9 sets, daily range): BP systolic 90–111; BP diastolic 43–63
[2020-11-04] MEDS: IPRATROPIUM NEB FS 0.5 MG/2.5 ML AMPUL.NEB NEB SCH ×4 (01:30→19:40)
[2020-11-04] MEDS: ALBUTEROL FS 2.5 MG/0.5 ML VIAL.NEB NEB SCH ×4 (01:30→19:40)
--- NOTE | 2020-11-04 05:57 | NUR ---
RN NOTE PATIENT REFUSED TO BE CHANGED AND REPOSITION,ALSO SHE REFUSED TO HAVE WOUND TREATMENT AFTER EXPLAINED RISKS AND BENEFIT SHE STILL REFUSED, RESPECT TO PATIENT RIGHT CONTINUE TO MONITOR.
[2020-11-04 06:34] LABS: BASOPHILS # (AUTO) 0.1 /CMM (0.0-0.2); BASOPHILS % (AUTO) 0.4 % (0.0-2.0); EOSINOPHILS % (AUTO) 0.8 % (0.0-6.0); LYMPHOCYTES # (AUTO) 1.4 /CMM (0.8-4.8); LYMPHOCYTES % (AUTO) 9.1 % (20.0-44.0); MEAN CORPUSCULAR HGB CONC 31 g/dl (31.0-36.0); MEAN CORPUSCULAR VOLUME 82 fL (82-100); MONOCYTES # (AUTO) 1.1 /CMM (0.1-1.30); MONOCYTES % (AUTO) 6.8 % (2.0-12.0); NEUTROPHILS % (AUTO) 82.9 % (43.0-81.0); PLATELET COUNT (AUTO) 469 /CMM (150-450); RED BLOOD CELL COUNT(AUTO) 2.43 MIL/uL (4.0-5.2); WHITE BLOOD COUNT (AUTO) 15.7 K/uL (4.3-11.0)
[2020-11-04 07:01] LABS: HEMATOCRIT 20 % (33-45)
[2020-11-04 07:02] LABS: HEMOGLOBIN 6.2 g/dL (11.5-14.8)
[2020-11-04 07:12] LABS: CALCIUM, SERUM 8.1 mg/dL (8.5-10.1); CREATININE 0.9 mg/dL (0.6-1.3); POTASSIUM 3.9 mmol/L (3.5-5.1)
--- NOTE | 2020-11-04 07:35 | NUR ---
RN OPENING NOTE PATIENT IN BED RESTING ALERT ORIENTED X2-3 NO SOB NOT ACUTE DISTRESS NOTED O2:98% SHE IS ON 2L/OXYGEN VIA NASAL CANNULA, IV SITE IS ON RIGHT UPPER ARM MIDLINE NO SOB NOT ACUTE DISTRESS NOTED,ON FIGUEROA CATHETER URINE DRAINING YELLOW/CLEAR BY GRAVITY,LEFT SIDE CONTRACTED UPPER EXTREMITY AND LEFT LOWER EXTREMITY,BED IS IN LOWEST POSITION AND LOCKED,AND SIDE RAILS ARE UP X2 SAFETY MEASUREMENTS ARE IMPLEMENTED PER HOSPITAL POLICY. CALL LIGHT WITHIN THE REACH. WILL CONTINUE TO MONITOR
--- NOTE | 2020-11-04 07:39 | NUR ---
RN CLOSING NOTE PATIENT REMAINS ON ALERT ORIENTED 2-3 VERBALLY RESPONISVE ON 2L OXYGEN VIA NASAL CANNULA, O2:98%NO SOB NOT ACUTE DISTRESS NOTED. ALL DUE MEDS GIVEN MD ORDERED KEPT ,IV SITE IS ON RIGHT UPPER ARM MIDLINE INTACT PATENT,IV HYDRATION RUNNING,ENDORSE NEXT COMING SHIFT FOR CONTINUATION OF CARE.
[2020-11-04] MEDS: TOPIRAMATE 100 MG TABLET PO SCH ×2 (08:16→17:00)
[2020-11-04] MEDS: LEVOTHYROXINE SODIUM 125 MCG TABLET PO SCH (08:16)
[2020-11-04] MEDS: GABAPENTIN 400 MG CAPSULE PO SCH ×3 (08:16→17:00)
[2020-11-04] MEDS: HYDROGEL DRESSING 90 GM TUBE TP SCH (08:17)
[2020-11-04] MEDS: DAKINS QUARTER STRENGTH (0.125%) 480 ML BOTTLE TOP SCH (08:17)
[2020-11-04 08:54] LABS: LYMPHOCYTES % (MANUAL) 8 % (16-48); NEUTROPHILS % (MANUAL) 87 (42-76)
[2020-11-04 08:55] LABS: MONOCYTES % (MANUAL) 5 % (0-11.0)
[2020-11-04] MEDS: MEROPENEM 500 MG in IV NS 0.9% 50 ML IV SCH ×2 (10:27→21:04)
--- NOTE | 2020-11-04 12:25 | NUR ---
RN NOTES BLOOD TRANSFUSION ORDER. STARTED THE BLOOD.
--- NOTE | 2020-11-04 12:40 | NUR ---
RN NOTES PT HAS NO BLOOD TRANSFUSION REACTION
[2020-11-04] MEDS: HYDROCODONE/APAP 5/325MG TABLET PO PRN ×2 (12:51→21:07)
--- NOTE | 2020-11-04 15:15 | NUR ---
RN NOTESPT HAS NO BLOOD TRANSFUSION REACTION WILL ORDER HGB AFTER 3 HOURS.
--- NOTE | 2020-11-04 16:30 | NUR ---
RN NOTES GAVE REPORT TO JOSE
[2020-11-04] MEDS: SOD FERRIC GLUC 125 MG in IV NS 0.9% 100 ML IV SCH (16:35)
--- NOTE | 2020-11-04 16:40 | NUR ---
RN NOTES TRANSFERRED PT WITH ACLS PROTOCOL. PT IS STABLE AND VS WNL
--- NOTE | 2020-11-04 16:42 | NUR ---
RN NOTES GAVE WILSON COATS LATER DUE TO BLOOD TRANSFUSION
--- NOTE | 2020-11-04 17:12 | NUR ---
MS/RN - Notes Received patient from Leonie RN, A/O x 3, denies pain, currently on oxygen at 2lpm via NC, ALEM midline in place, flushing well, no s/s of infiltration, no active bleeding seen, s/p 1 unit PRBC given. Beckham catheter in place for skin management. Patient oriented to room, no belongings on file. All needs attended. Will continue with current medical management.
[2020-11-04] MEDS: ACETAMINOPHEN 325 MG TABLET PO PRN (17:25)
--- NOTE | 2020-11-04 18:21 | NUR ---
MS/RN - End of shift summary No new events seen, remain afebrile, denies pain, not in any form of distress. IVF infusing well on the ALEM midline with no s/s of infiltration. Will endorse to night RN accordingly.
--- NOTE | 2020-11-04 20:00 | NUR ---
RN OPENING NOTE RECEIVED PATIENT IN BED RESTING ALERT ORIENTED X2-3 VERBALLY RESPONSIVE ON 2L OXYGEN VIA NASAL CANNULA,O2:97% LEFT SIDE BODY CONTRACTED,IV SITE IS ON RIGHT UPPER ARM MIDLINE INTACT PATENT ON 75CC/HR IV NS RUNNING URINE DRAINING YELLOW/CLEAR BY GRAVITY CALL LIGHT WITHIN REACH,SAFETY MEASURE IMPLEMENT CONTINUE TO MONITOR.
[2020-11-04 21:07] LABS: HEMOGLOBIN 7.3 g/dL (11.5-14.8)
[2020-11-05] MEDS: VANCOMYCIN 1 GM in IV D5W 250 ML IV SCH (00:31)
[2020-11-05] MEDS: ACETAMINOPHEN 325 MG TABLET PO PRN ×3 (00:51→22:14)
[2020-11-05] MEDS: ALBUTEROL FS 2.5 MG/0.5 ML VIAL.NEB NEB SCH ×4 (01:29→19:30)
[2020-11-05] MEDS: IPRATROPIUM NEB FS 0.5 MG/2.5 ML AMPUL.NEB NEB SCH ×4 (01:29→19:30)
[2020-11-05 06:04] LABS: BASOPHILS % (AUTO) 0.4 % (0.0-2.0); EOSINOPHILS % (AUTO) 1.1 % (0.0-6.0); HEMATOCRIT 23 % (33-45); HEMOGLOBIN 7.1 g/dL (11.5-14.8); LYMPHOCYTES # (AUTO) 1.2 /CMM (0.8-4.8); LYMPHOCYTES % (AUTO) 9.2 % (20.0-44.0); MEAN CORPUSCULAR HGB CONC 32 g/dl (31.0-36.0); MEAN CORPUSCULAR VOLUME 83 fL (82-100); MONOCYTES # (AUTO) 0.9 /CMM (0.1-1.30); MONOCYTES % (AUTO) 6.5 % (2.0-12.0); NEUTROPHILS % (AUTO) 82.8 % (43.0-81.0); PLATELET COUNT (AUTO) 410 /CMM (150-450); RED BLOOD CELL COUNT(AUTO) 2.69 MIL/uL (4.0-5.2); WHITE BLOOD COUNT (AUTO) 13.3 K/uL (4.3-11.0)
[2020-11-05 06:15] LABS: CALCIUM, SERUM 7.8 mg/dL (8.5-10.1); CREATININE 0.8 mg/dL (0.6-1.3); POTASSIUM 3.8 mmol/L (3.5-5.1)
--- NOTE | 2020-11-05 06:35 | NUR ---
RN CLOSING NOTE PATIENT REMAINS ON ALERT ORIENTED X2-3 VERBALLY RESPONSIVE,ON MED SURG MONITORING NO SOB NOT ACUTE DISTRESS NOTED ON 3L OXYGEN VIA NASAL CANNULA O2:98% IV SITE IS ON RIGHT UPPER ARM MID LINE INTACT PATENT,FIGUEROA IN PLACE URINE DRAINING YELLOW AND CLEAR,ALL DUE MEDS GIVEN MD ORDERED KEPT CLEAN AND DRY ALL THE TIME,KEPT COMFORTABLE,KEPT CALL LIGHT WITHIN REACH,ENDORSE NEXT COMING SHIFT FOR CONTINUATION OF CARE.
[2020-11-05 08:00] VITALS: BP 126/59
[2020-11-05] MEDS: HYDROCODONE/APAP 5/325MG TABLET PO PRN ×2 (08:42→17:59)
[2020-11-05] MEDS: LEVOTHYROXINE SODIUM 125 MCG TABLET PO SCH (08:42)
[2020-11-05] MEDS: MEROPENEM 500 MG in IV NS 0.9% 50 ML IV SCH ×2 (11:24→21:54)
[2020-11-05] MEDS: GABAPENTIN 400 MG CAPSULE PO SCH ×3 (11:25→17:59)
[2020-11-05] MEDS: TOPIRAMATE 100 MG TABLET PO SCH ×2 (11:25→17:59)
[2020-11-05] MEDS: HYDROGEL DRESSING 90 GM TUBE TP SCH (11:40)
[2020-11-05] MEDS: DAKINS QUARTER STRENGTH (0.125%) 480 ML BOTTLE TOP SCH (11:40)
[2020-11-05] MEDS: IV NS 0.9% 1,000 ML IV PRN (12:15)
[2020-11-05] MEDS: SOD FERRIC GLUC 125 MG in IV NS 0.9% 100 ML IV SCH (15:49)
[2020-11-05 16:00] VITALS: BP 108/60
--- NOTE | 2020-11-05 18:00 | NUR ---
RECEIVED PT. IN AM,ALERT AND ORIENTED X2-3.VS STABLE.VERY DEPENDENT AND NEEDY.BODY STIFF WITH CONTRACTIONS TO LT. LOWER LEG AND STIFFNESS TO LT. ARM.WD CARE TO SACRAL AREA,WD CULTURE DONE OF SACRAL WD.IV INFUSING.
[2020-11-05 20:00] VITALS: BP 120/52
--- NOTE | 2020-11-05 22:17 | NUR ---
MS RN NOTE: PRN TYLENOL GIVEN PATIENT C/O LEFT SHOULDER & LEFT HIP PAIN 01/28 & WANTED TO TAKE TYLENOL AT THIS TIME. PRN TYLENOL 650 MG PO GIVEN ORDERED. WILL CONTINUE TO MONITOR.
--- NOTE | 2020-11-05 22:30 | NUR ---
MS RN NOTE Patient is uncooperative with turning & repositioning at this time. screams & emotional & refuses to be repositioned. attempted to turn & reposition & make her comfortable but patient refused to be touched at this time. left leg contracted & patient refused her left leg to be touched at all. PRN tylenol was given for pain, per patient request, will retry to turn & reposition the patient if patient allows.
[2020-11-05 23:00] VITALS: BP 123/61
[2020-11-06] MEDS: IPRATROPIUM NEB FS 0.5 MG/2.5 ML AMPUL.NEB NEB SCH ×3 (01:30→13:30)
[2020-11-06] MEDS: ALBUTEROL FS 2.5 MG/0.5 ML VIAL.NEB NEB SCH ×3 (01:30→13:30)
[2020-11-06] MEDS: IV NS 0.9% 1,000 ML IV PRN (01:56)
[2020-11-06] MEDS: HYDROCODONE/APAP 5/325MG TABLET PO PRN ×2 (04:38→16:10)
--- NOTE | 2020-11-06 04:38 | NUR ---
ms rn note: generalized pain PATIENT C/O GENERALIZED BODY PAIN 05/30, WANTED TO TAKE NORCO ONLY AT THIS TIME. VITALS ARE 132/65, 93, 20, 98.6, 95%, on O2 @ 2 LPM VIA NC. PRN NORCO 5-325 MG 1 TAB PO GIVEN. WILL REASSESS FOR EFFECTIVENESS.
--- NOTE | 2020-11-06 05:27 | NUR ---
MS RN NOTE PATIENT REFUSED BLOOD DRAW FOR CBC & BMP DESPITE OF EXPLANATIONS X 3.
--- NOTE | 2020-11-06 06:08 | NUR ---
MS RN NOTE PATIENT REFUSED TO CHANGE LEFT LEG SOILED DRESSING DESPITE OF RISKS & BENEFITS EXPLANATIONS X3. PATIENT IS UNCOOPERATIVE WITH SACRAL WOUND DRESSING, PAIN MEDICATION WAS GIVEN PRIOR TO DRESSING CHANGE BUT PATIENT ONLY ALLOWED TO CHANGE SACRAL DRESSING, NOT ANY OTHER DRESSING AT TUBE TELLER. WILL ENDORSE TO AM RN FOR CONTINUITY OF CARE.
--- NOTE | 2020-11-06 06:33 | NUR ---
MS RN CLOSING NOTE PATIENT SLEPT INTERMITTENTLY AT PRECISION LENS GENERATOR, ALERT ORIENTED X 2-3 VERBALLY RESPONSIVE ON 2L OXYGEN VIA NASAL CANULA, LEFT SIDE BODY CONTRACTED, IV SITE IS ON RIGHT UPPER ARM MIDLINE INTACT PATENT ON 75CC/HR IV NS RUNNING. URINE DRAINING YELLOW/CLEAR BY GRAVITY 1200 ML OUTPUT. UNCOOPERATIVE WITH ADL CARE AT TIMES, REFUSES CARE. BED IN LOW LOCKED POSITION. CALL LIGHT WITHIN REACH, SAFETY MEASURE IMPLEMENTED. WILL ENDORSE TO AM RN FOR CONTINUITY OF CARE.
[2020-11-06 08:00] VITALS: BP 99/52
--- NOTE | 2020-11-06 08:14 | NUR ---
RN -NOTES RECEIVED PATIENT SLEEPING IN BED,EASILY AROUSED NO ACUTE DISTRESS NOTED. IV FLUID OF NS AT 75ML/HR INFUSING WELL. WILL CONT. MONITORING .
[2020-11-06] MEDS: LEVOTHYROXINE SODIUM 125 MCG TABLET PO SCH (08:22)
[2020-11-06] MEDS: MEROPENEM 500 MG in IV NS 0.9% 50 ML IV SCH (10:17)
[2020-11-06] MEDS: GABAPENTIN 400 MG CAPSULE PO SCH ×3 (10:17→18:06)
[2020-11-06] MEDS: TOPIRAMATE 100 MG TABLET PO SCH ×2 (10:17→18:06)
[2020-11-06] MEDS: HYDROGEL DRESSING 90 GM TUBE TP SCH (10:26)
[2020-11-06] MEDS: DAKINS QUARTER STRENGTH (0.125%) 480 ML BOTTLE TOP SCH (10:27)
[2020-11-06 12:20] LABS: BASOPHILS % (AUTO) 0.2 % (0.0-2.0); EOSINOPHILS % (AUTO) 1.2 % (0.0-6.0); HEMATOCRIT 23 % (33-45); HEMOGLOBIN 7.3 g/dL (11.5-14.8); LYMPHOCYTES # (AUTO) 0.9 /CMM (0.8-4.8); LYMPHOCYTES % (AUTO) 7.2 % (20.0-44.0); MEAN CORPUSCULAR HGB CONC 31 g/dl (31.0-36.0); MEAN CORPUSCULAR VOLUME 84 fL (82-100); MONOCYTES # (AUTO) 0.9 /CMM (0.1-1.30); MONOCYTES % (AUTO) 6.9 % (2.0-12.0); NEUTROPHILS # (AUTO) 10.6 /CMM (1.8-8.9); NEUTROPHILS % (AUTO) 84.5 % (43.0-81.0); PLATELET COUNT (AUTO) 388 /CMM (150-450); RED BLOOD CELL COUNT(AUTO) 2.78 MIL/uL (4.0-5.2); WHITE BLOOD COUNT (AUTO) 12.6 K/uL (4.3-11.0)
[2020-11-06 12:30] LABS: CALCIUM, SERUM 8.1 mg/dL (8.5-10.1); CREATININE 0.8 mg/dL (0.6-1.3)
[2020-11-06] MEDS: VANCOMYCIN 1 GM in IV D5W 250 ML IV SCH (13:24)
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
[2020-11-06] MEDS: SOD FERRIC GLUC 125 MG in IV NS 0.9% 100 ML IV SCH (15:27)
[2020-11-06 16:00] VITALS: BP 107/51
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
--- NOTE | 2020-11-12 12:16 | NUR ---
RUDY received a missed call from Tavia Rojas [phone]. RUDY called back and left voicemail with SW call back number. RUDY will be available as needed. Addendum: 11/12/20 at 1233 by RADHA GRANT RUDY received a call back from Tavia Rojas [phone] who stated that they received the SOC 341 from [employer] and SOC 341 was sent to the licensing agency. Noted. Tavia Rojas appreciated the follow up. RUDY will be available as needed.
== END 2020-11-06 18:45 | DRG 871 ==
LOC: ER 11:16 → TELE1 19:45 → TELE-TD 20:50 → TELE1 20:52 → MEDSG1 11-02 11:30 → MED 11-04 16:07
PROVIDERS: ADMIT Nurse Practitioner Acute Care; ATTEND Nurse Practitioner Acute Care
PROC: 05HB33Z Insertion of Infusion Device into Right Basilic Vein, Percutaneous Approach (ICD-10-PCS; principal; 2020-11-02)
PROC: 05HB33Z Insertion of Infusion Device into Right Basilic Vein, Percutaneous Approach (ICD-10-PCS; 2020-11-02)
PROC: 30233N1 Transfusion of Nonautologous Red Blood Cells into Peripheral Vein, Percutaneous Approach (ICD-10-PCS; 2020-11-03)
DX: A41.59 Other Gram-negative sepsis (principal); L89.154 Pressure ulcer of sacral region, stage 4; L89.324 Pressure ulcer of left buttock, stage 4; J69.0 Pneumonitis due to inhalation of food and vomit; J96.01 Acute respiratory failure with hypoxia; E43 Unspecified severe protein-calorie malnutrition; N17.0 Acute kidney failure with tubular necrosis; D68.59 Other primary thrombophilia; J44.0 Chronic obstructive pulmonary disease with (acute) lower respiratory infection; L03.115 Cellulitis of right lower limb; I50.22 Chronic systolic (congestive) heart failure; L03.116 Cellulitis of left lower limb; D64.9 Anemia, unspecified; F32.9 Major depressive disorder, single episode, unspecified; E86.0 Dehydration; K21.9 Gastro-esophageal reflux disease without esophagitis; I11.0 Hypertensive heart disease with heart failure; E78.1 Pure hyperglyceridemia; E03.9 Hypothyroidism, unspecified; G40.909 Epilepsy, unspecified, not intractable, without status epilepticus; G89.4 Chronic pain syndrome; M81.0 Age-related osteoporosis without current pathological fracture; D47.3 Essential (hemorrhagic) thrombocythemia; F90.9 Attention-deficit hyperactivity disorder, unspecified type; F10.21 Alcohol dependence, in remission; M15.9 Polyosteoarthritis, unspecified; Z74.09 Other reduced mobility; Z99.3 Dependence on wheelchair; Z91.19 Patient's noncompliance with other medical treatment and regimen; Z96.643 Presence of artificial hip joint, bilateral; Z88.0 Allergy status to penicillin; Z87.891 Personal history of nicotine dependence; Z74.01 Bed confinement status; L89.316 Pressure-induced deep tissue damage of right buttock; Y95 Nosocomial condition; Z79.899 Other long term (current) drug therapy; Z80.0 Family history of malignant neoplasm of digestive organs; Z80.1 Family history of malignant neoplasm of trachea, bronchus and lung; Z87.440 Personal history of urinary (tract) infections; L89.616 Pressure-induced deep tissue damage of right heel; Z91.14 Patient's other noncompliance with medication regimen; F41.9 Anxiety disorder, unspecified; E86.1 Hypovolemia; L85.3 Xerosis cutis; I87.2 Venous insufficiency (chronic) (peripheral); F39 Unspecified mood [affective] disorder; L89.896 Pressure-induced deep tissue damage of other site; B96.4 Proteus (mirabilis) (morganii) as the cause of diseases classified elsewhere; G62.9 Polyneuropathy, unspecified; M21.171 Varus deformity, not elsewhere classified, right ankle; Z79.890 Hormone replacement therapy
CPT/HCPCS: 36415; 71045-TC; 80048-TC; 80053-TC; 80061-TC; 80076-TC; 80202-TC; 81001; 82728-TC; 83540-TC; 83605-TC; 83735-TC; 83880; 84100-TC; 84443-TC; 84484-TC; 85025-TC; 85027-TC; 85730-TC; 86850-TC; 87040-TC; 87070-TC; 87086-TC; 87186-TC; 93970-TC; 94799-TC; 99082-TC; A4217; A6248; A6253; A6403; C9803; G0378; J0692; J1650; J1956; J2185; J2916; J3370; J7030; J7050; J7060; P9016-BL; U0003